=== PATIENT | female | born 1965 | race Caucasian/White ===

== ENCOUNTER → 2017-01-22 | Outpatient (CLI) | payer OTHER ==
[~2017-01-22] MED LIST: ANT25 PO; ATV5X PO; CALC-354 PO; CLON1TAB3 PO; CLX/20 PO; EPP3/2 IM; FLNIN/ NAE; LEVO50TA6 PO; MISCCAP80 PO; MISO1TAB10 PO; NATURAL SUPPLEMENT PO; ONDA-63 PO; PEDICHW44 PO; POLY1POW2 PO; SENN-61 PO; VNTHFA/IN INH; WARF-280 PO
--- NOTE | 2017-01-22 17:37 | DIAGNOSTIC IMAGING REPORT ---
MRI OF THE CERVICAL SPINE WITHOUT IV CONTRAST CLINICAL HISTORY: Neck pain radiating into the left shoulder. COMPARISON STUDY: No priors. TECHNIQUE: MRI of the cervical spine is performed utilizing various T1 and T2-weighted sequences in the axial and sagittal planes. IV contrast was not administered for this examination. The examination is modestly degraded by motion artifact. FINDINGS: Cervical spine: Vertebral body height and alignment are maintained throughout the cervical spine. There is straightening of the cervical lordosis. No destructive bony lesion is seen. The spinous processes appear intact. The atlantodental articulation appears maintained. Intervertebral discs: Mild degenerative disc desiccation is seen throughout the cervical spine. No significant loss of height is seen. Spinal cord: The cervical spinal cord is normal in morphology and signal intensity. C2-C3: Unremarkable. C3-C4: Mild facet arthropathy is of no consequence. The neural foramina appear patent. C4-C5: The central canal and neural foramina are patent. C5-C6: Facet arthropathy causes minimal right-sided neural foraminal stenosis. The central canal is clear. C6-C7: Unremarkable. C7-T1: Unremarkable. T1-T2: Unremarkable. Soft tissues: The prevertebral and paraspinous soft tissues are within normal limits. Brain parenchyma: Partially imaged brain parenchyma at the skull base is within normal limits. IMPRESSION: 1. There is no disc herniation, central canal stenosis, or significant neural foraminal narrowing seen throughout the cervical spine. 2. The cervical spinal cord is normal in morphology and signal intensity. Electronically signed by: Zeferino Foster M.D. 01/22/2017 5:35 PM Dictated Date/Time: 01/22/2017 5:31 PM
== END | disposition home or self-care (01) ==
LOC: C.MRIBC 16:31
PROVIDERS: ATTEND Psychiatry & Neurology Neurology
DX: M54.2 Cervicalgia (principal); M79.2 Neuralgia and neuritis, unspecified

== ENCOUNTER 2017-04-10 00:23 | Emergency (ER) | payer OTHER ==
[~2017-04-10] VITALS: Ht 170.2 cm; Wt 88.2 kg
[2017-04-10 00:25] VITALS: TEMP 36.5; Ht 170.2 cm; Wt 88.2 kg
[2017-04-10 00:40] VITALS: O2SAT 98
[2017-04-10 01:05] LABS: BASO % 0.4 %; BASO ABS # 0.03 K/uL (0-0.2); COMPLETE YES; EOS % 2.4 %; HEMATOCRIT 36.8 % (37-47); IG% 0.1 %; LYMPH % 43.9 %; LYMPH ABS # 3.06 K/uL (1.2-3.4); MEAN CELL VOLUME 92.9 fL (80-100); MEAN CORPUSCULAR HEMOGLOBIN 29.8 pg (25-34); MEAN CORPUSCULAR HGB CONC 32.1 g/dl (32-36); MEAN PLATELET VOLUME 10.4 fL (7.4-10.4); MONO % 9.6 %; NEUT % 43.6 %; PLATELET COUNT 207 K/uL (130-400); RED BLOOD COUNT 3.96 M/uL (4.2-5.4); WHITE BLOOD COUNT 6.97 K/uL (4.8-10.8)
[2017-04-10 01:18] LABS: ALT/SGPT 15 U/L (12-78); AST/SGOT 14 U/L (15-37); BLOOD UREA NITROGEN 13 mg/dl (7-18); BUN/CREATININE RATIO 14.8 (10-20); CALCIUM 8.6 mg/dl (8.5-10.1); CARBON DIOXIDE 29 mmol/L (21-32); CHLORIDE 105 mmol/L (98-107); GLUCOSE 101 mg/dl (70-99); POTASSIUM 4.1 mmol/L (3.5-5.1); SODIUM 140 mmol/L (136-145)
[2017-04-10 01:21] LABS: ALKALINE PHOSPHATASE 100 U/L (45-117); CKMB/CK RATIO 0.5 (0-3.0)
[2017-04-10 01:54] VITALS: BP 106/51; PULSE 50; O2SAT 99
[2017-04-10 02:14] LABS: INR 1.9 (0.9-1.1); PARTIAL THROMBOPLASTIN RATIO 1.3; PROTHROMBIN TIME (PATIENT) 20.7 SECONDS (9.0-12.0)
[2017-04-10] MEDS ORDERED: CHOL1CHW4 PO (02:21)
[2017-04-10] MEDS ORDERED: CYAN100020 INJ (02:21)
[2017-04-10] MEDS ORDERED: BACL10TA PO (02:21)
[2017-04-10] MEDS ORDERED: CYAN30003 SL (02:21)
--- NOTE | 2017-04-10 06:53 | DIAGNOSTIC IMAGING REPORT ---
ABDOMEN 2VIEW W/PA CHEST RTN CLINICAL HISTORY: Constipation. Chest pain. COMPARISON STUDY: 06/19/2016 FINDINGS: The erect chest reveals no free air. There is no focal pulmonary consolidation. There are surgical clips in the right upper quadrant consistent with a prior cholecystectomy. There are suture lines in left upper quadrant suggestive a prior gastric bypass. Surgical clips are also present within the pelvis possibly related to prior tubal ligation. There is mild fecal retention. There are no abnormally dilated loops of large or small bowel. There are no transition zone to indicate bowel obstruction. IMPRESSION: 1. No evidence of bowel obstruction. No evidence of free air 2. Postsurgical changes 3. Mild fecal retention. Electronically signed by: Bigg Haile M.D. 04/10/2017 6:51 AM Dictated Date/Time: 04/10/2017 6:50 AM
--- NOTE | 2017-04-10 07:20 | EMERGENCY ROOM VISIT NOTE ---
History Report prepared by Chago: Gloria Jama Under the Supervision of: Dr. Krystina Shabazz M.D. First contact with patient: 00:42 Chief Complaint: CHEST PAIN Stated Complaint: CHEST PAIN GOING INTO LEFT ARM History of Present Illness The patient is a 51 year old female who presents to the Emergency Room with complaints of episode of chest pain starting a few weeks ago. The patient states that she brought a friend to the ED for evaluation and thought she would "get checked out while (she's) here." She reports that while there she started to experience chest pain under her breast. She reports that the pain started to move into her armpit, down into her arm, and up into her shoulder blade. She states with past episodes she tried to ignore it. The patient notes the pain is better when she presses on her chest. She notes it is worse with exertion. She states that she still intermittently has pains from this. She also notes she has been constipated for two weeks. She reports that this pain feels differently than gas pains because it is higher. The patient complains on ringing in her ears. Source of History: patient Onset: a few weeks ago Position: chest Quality: other (radiating) Timing: other (episode) Modifying Factors (Worsening): exertion Modifying Factors (Relieving): other (pressing on her chest) Note: The patient complains of ringing in her ears. Review of Systems See HPI for pertinent positives & negatives. A total of 10 systems reviewed and were otherwise negative. Past Medical & Surgical Medical Problems: (1) ANXIETY STATE NOS (2) ASTHMA, UNSPECIFIED (3) Cholecystectomy (4) DIAB DELMY WO COMPL, TYPE II OR UNSPEC TYPE, NOT UNCNTRLD (5) ESOPHAGEAL REFLUX (6) GASTROPARESIS (7) Hx of blood clots (8) SYNCOPE AND COLLAPSE Family History Cancer Heart disease Hypertension No significant family history Social History Smoking Status: Never Smoker Alcohol Use: occasionally Drug Use: none Marital Status: Housing Status: lives with significant other Occupation Status: unemployed Current/Historical Medications Scheduled Baclofen (Lioresal), 10 MG PO HS Calcium Carbonate-Cholecalcife (Caltrate 600+D), 1 TAB PO BID Cholecalciferol (Vitamin D3), Unknown Dose PO DAILY Citalopram (Citalopram Hydrobromide), 20 MG PO DAILY Clonazepam (Klonopin), 1 MG PO HS Cyanocobalamin (Vitamin B12), Unknown Dose SL DAILY Cyanocobalamin (Vitamin B12), Unknown Dose INJ Q3MO Levothyroxine Sodium (Levothyroxine Sodium), 50 MCG PO DAILY Misoprostol (Cytotec), 100 MCG PO QID Pediatric Multiple Vitamins W/ (Flintstones Plus Iron), 1 TAB PO BID Polyethylene Glycol 3350 (Bulk (Polyethylene Glycol 3350), 17 GM PO DAILY Probiotic Product (Probiotic), 2 CAP PO DAILY Warfarin Sodium (Warfarin Sodium), 1.25 MG PO 2XWK Warfarin Sodium (Warfarin Sodium), 2.5 MG PO 5XWK [Natural Supplement], 1 DOSE PO DAILY Scheduled PRN Albuterol Hfa (Ventolin Hfa), 2 PUFFS INH Q4H PRN for Wheezing Epinephrine (Epipen), 0.3 MG IM UD PRN for ALLERGIC REACTION Fluticasone Propionate (Fluticasone Propionate), 2 SPRAYS ADRIANA DAILY PRN for Allergy Symptoms Lorazepam (Lorazepam), 0.5 MG PO Q8 PRN for Anxiety Meclizine HCl (Meclizine HCl), 25 MG PO TID PRN for Dizziness Ondansetron (Ondansetron HCl), 8 MG PO TID PRN for Nausea Senna (Senokot), 17.2-34.4 MG PO HS PRN for Constipation Allergies Coded Allergies: Tramadol (Verified Allergy, Intermediate, PRURITIS, 04/10/17) Aspirin (Verified Allergy, Unknown, 04/10/17) Cephalexin (Verified Allergy, Unknown, Unknown, 04/10/17) Clarithromycin (Verified Allergy, Unknown, 04/10/17) Doxepin (Verified Allergy, Unknown, Unknown, 04/10/17) Enoxaparin (Verified Allergy, Unknown, HIVES, 04/10/17) Gabapentin (Verified Allergy, Unknown, 04/10/17) Guaifenesin (Verified Allergy, Unknown, 04/10/17) Hydrocodone (Verified Allergy, Unknown, Unknown, 04/10/17) Hydromorphone (Verified Allergy, Unknown, 04/10/17) Ibuprofen (Verified Allergy, Unknown, Hives, 04/10/17) Kiwi (Verified Allergy, Unknown, 04/10/17) Molds and Smuts (Verified Allergy, Unknown, Unknown, 04/10/17) NUTS (Verified Allergy, Unknown, 04/10/17) Pantoprazole (Verified Allergy, Unknown, HIVES, 04/10/17) Penicillins (Verified Allergy, Unknown, 04/10/17) Prednisone (Verified Allergy, Unknown, Unknown, 04/10/17) Pseudoephedrine (Verified Allergy, Unknown, 04/10/17) Sulfa Drugs (Verified Allergy, Unknown, 04/10/17) Topiramate (Verified Allergy, Unknown, Psych Complications, 04/10/17) Trazodone (Verified Allergy, Unknown, Severe Migraine, 04/10/17) Triptans (Verified Allergy, Unknown, Unknown, 04/10/17) Morphine (Verified Adverse Reaction, Unknown, ANXIETY, SHAKING, 04/10/17) Uncoded Allergies: BEES (Allergy, Intermediate, SHORTNESS OF BREATH, 02/07/12) NONSTEROIDAL (Allergy, Unknown, 08/17/09) Physical Exam Vital Signs Date Time Temp Pulse Resp B/P (MAP) Pulse Ox O2 Delivery O2 Flow Rate FiO2 04/10/17 01:54 50 16 106/51 99 Room Air 04/10/17 00:40 98 Room Air 04/10/17 00:40 98 Room Air 04/10/17 00:38 58 04/10/17 00:25 36.5 55 20 111/61 97 Room Air Physical Exam Vital signs reviewed. General: Well-appearing, in no significant distress. HEENT: No scleral icterus, PERRLA, neck supple. Atraumatic. Cardiovascular: Regular rate and rhythm, no extra sounds. Pulmonary: Clear to auscultation bilaterally, normal work of breathing. Abdomen: Soft, nontender, nondistended, positive bowel sounds. Obese abdomen. Musculoskeletal: Atraumatic, no peripheral edema. Neurologic: Patient awake alert and oriented x 3, full strength in all 4 extremities. Cranial nerves 2 through 12 grossly intact. Skin: Warm, dry, no rash Medical Decision & Procedures ER Provider Diagnostic Interpretation: Radiology results as stated below per my review and radiologist interpretation: CHEST/ABDOMEN 2 VIEW: Findings: Interpreted by me. No focal lung consolidation, no failure. No free air. No evidence of obstruction. Fecal retention. Laboratory Results 04/10/17 00:36 Red Blood Count 3.96, Mean Corpuscular Volume 92.9, Mean Corpuscular Hemoglobin 29.8, Mean Corpuscular Hemoglobin Concent 32.1, Mean Platelet Volume 10.4, Neutrophils (%) (Auto) 43.6, Lymphocytes (%) (Auto) 43.9, Monocytes (%) (Auto) 9.6, Eosinophils (%) (Auto) 2.4, Basophils (%) (Auto) 0.4, Neutrophils # (Auto) 3.03, Lymphocytes # (Auto) 3.06, Monocytes # (Auto) 0.67, Eosinophils # (Auto) 0.17, Basophils # (Auto) 0.03 04/10/17 00:36 Test 04/10/17 00:36 04/10/17 01:09 White Blood Count 6.97 K/uL (4.8-10.8) Red Blood Count 3.96 M/uL (4.2-5.4) Hemoglobin 11.8 g/dL (12.0-16.0) Hematocrit 36.8 % (37-47) Mean Corpuscular Volume 92.9 fL (80-100) Mean Corpuscular Hemoglobin 29.8 pg (25-34) Mean Corpuscular Hemoglobin Concent 32.1 g/dl (32-36) Platelet Count 207 K/uL (130-400) Mean Platelet Volume 10.4 fL (7.4-10.4) Neutrophils (%) (Auto) 43.6 % Lymphocytes (%) (Auto) 43.9 % Monocytes (%) (Auto) 9.6 % Eosinophils (%) (Auto) 2.4 % Basophils (%) (Auto) 0.4 % Neutrophils # (Auto) 3.03 K/uL (1.4-6.5) Lymphocytes # (Auto) 3.06 K/uL (1.2-3.4) Monocytes # (Auto) 0.67 K/uL (0.11-0.59) Eosinophils # (Auto) 0.17 K/uL (0-0.5) Basophils # (Auto) 0.03 K/uL (0-0.2) RDW Standard Deviation 47.9 fL (36.4-46.3) RDW Coefficient of Variation 14.1 % (11.5-14.5) Immature Granulocyte % (Auto) 0.1 % Immature Granulocyte # (Auto) 0.01 K/uL (0.00-0.02) Prothrombin Time 20.7 SECONDS (9.0-12.0) Prothromb Time International Ratio 1.9 (0.9-1.1) Activated Partial Thromboplast Time 33.1 SECONDS (21.0-31.0) Partial Thromboplastin Ratio 1.3 Anion Gap 6.0 mmol/L (3-11) Est Creatinine Clear Calc Drug Dose 84.3 ml/min Estimated GFR () 85.8 Estimated GFR (Non- 74.0 BUN/Creatinine Ratio 14.8 (10-20) Calcium Level 8.6 mg/dl (8.5-10.1) Total Bilirubin 0.2 mg/dl (0.2-1) Direct Bilirubin < 0.1 mg/dl (0-0.2) Aspartate Amino Transf (AST/SGOT) 14 U/L (15-37) Alanine Aminotransferase (ALT/SGPT) 15 U/L (12-78) Alkaline Phosphatase 100 U/L (45-117) Total Creatine Kinase 142 U/L (26-192) Creatine Kinase MB 0.7 ng/ml (0.5-3.6) Creatine Kinase MB Ratio 0.5 (0-3.0) Total Protein 7.3 gm/dl (6.4-8.2) Albumin 3.5 gm/dl (3.4-5.0) Bedside Troponin I < 0.030 ng/ml (0-0.045) Laboratory results per my review. ECG Indication: chest pain Rate (beats per minute): 48 Rhythm: sinus bradycardia Findings: no acute ischemic change, no ectopy ED Course 0052: Past medical records reviewed. The patient was evaluated in room A11B. A complete history and physical examination was performed. 0221: Upon reevaluation, the patient appeared to have improvement of her symptoms. I discussed findings with the patient. She verbalized agreement of the treatment plan. The patient was discharged home. Medical Decision Differential diagnosis: Etiologies such as cardiac ischemia, aortic dissection, pulmonary embolism, pneumonia, pneumothorax, musculoskeletal, infections, pericarditis, myocarditis , esophageal rupture, gastrointestinal, constipation, as well as others were entertained. This pt was evaluated and appeared to be in no distress. EKG was performed and is negative for acute abnormality. Pt not given ASA as she confirms allergy. Lab work reveals no elevation of cardiac enzymes. Pt has h/o constipation and states no BM in 2 weeks. Abd XR reveals constipation. INR is 1.9, slightly subtherapeutic, but pt takes varying doses. HR is normal, O2 sat on RA is normal. I do not suspect acute cardiac or VTE source of pain. I suspect this is GI related. Pt was advised to use miralax until she has a BM. She will f/u with her doctor this week and return to the ED for worsening of symptoms or any medical concerns. Medication Reconcilliation Current Medication List: was personally reviewed by me Blood Pressure Screening Patient's blood pressure: Low blood pressure Blood pressure disposition: Did not require urgent referral Impression Primary Impression: Chest pain radiating to arm Additional Impression: Constipation Scribe Attestation The scribe's documentation has been prepared under my direction and personally reviewed by me in its entirety. I confirm that the note above accurately reflects all work, treatment, procedures, and medical decision making performed by me. Departure Information Dispostion Home / Self-Care Referrals Shawna Malhotra M.D. (PCP) Forms Call Back Authorization, HOME CARE DOCUMENTATION FORM, IMPORTANT VISIT INFORMATION Patient Instructions My [facility] Additional Instructions Diagnosis: Chest pain, constipation Miralax 1 cap every 8 hours until you have a BM Follow up with your doctor this week for reevaluation. Return to the ED for worsening of symptoms or any medical concerns. Problem Qualifiers
== END 2017-04-10 02:21 | disposition home or self-care (01) ==
LOC: C.EDB 00:24 → C.EDA 02:21
DX: R07.9 Chest pain, unspecified (principal); K59.00 Constipation, unspecified; F41.9 Anxiety disorder, unspecified; J45.909 Unspecified asthma, uncomplicated; E11.9 Type 2 diabetes mellitus without complications; K21.9 Gastro-esophageal reflux disease without esophagitis; K31.84 Gastroparesis; Z86.718 Personal history of other venous thrombosis and embolism; Z80.9 Family history of malignant neoplasm, unspecified; Z82.49 Family history of ischemic heart disease and other diseases of the circulatory system; Z79.01 Long term (current) use of anticoagulants; Z79.899 Other long term (current) drug therapy

== ENCOUNTER 2017-08-06 22:04 | Emergency (ER) | payer OTHER ==
[~2017-08-06] VITALS: Ht 162.6 cm; Wt 90.4 kg
[~2017-08-06 22:04] MED LIST changes: +BACL10TA PO; +CHOL1CHW4 PO; +CYAN100020 INJ; +CYAN30003 PO
[2017-08-06 22:26] VITALS: TEMP 36.5; Ht 162.6 cm; Wt 90.4 kg
[2017-08-06 22:56] LABS: BASO % 0.7 %; BASO ABS # 0.05 K/uL (0-0.2); EOS % 2.7 %; HEMATOCRIT 38.9 % (37-47); IG# 0.02 K/uL (0.00-0.02); LYMPH % 40.9 %; LYMPH ABS # 3.02 K/uL (1.2-3.4); MEAN CELL VOLUME 91.5 fL (80-100); MEAN CORPUSCULAR HEMOGLOBIN 30.6 pg (25-34); MEAN CORPUSCULAR HGB CONC 33.4 g/dl (32-36); MEAN PLATELET VOLUME 10.7 fL (7.4-10.4); MONO % 11.1 %; MONO ABS # 0.82 K/uL (0.11-0.59); NEUT % 44.3 %; NEUT ABS # 3.27 K/uL (1.4-6.5); PLATELET COUNT 209 K/uL (130-400); RED CELL DISTRIBUTION WIDTH CV 14.4 % (11.5-14.5); RED CELL DISTRIBUTION WIDTH SD 48.5 fL (36.4-46.3); WHITE BLOOD COUNT 7.38 K/uL (4.8-10.8)
--- NOTE | 2017-08-06 23:08 | EMERGENCY ROOM VISIT NOTE ---
ED Visit Note First contact with patient: 22:19 I have seen and examined this patient with Michell Olea and generally agree with the treatment plan as discussed. Problem List Medical Problems: (1) ANXIETY STATE NOS Status: Chronic (2) ASTHMA, UNSPECIFIED Status: Chronic (3) Cholecystectomy Status: Chronic (4) DIAB DELMY WO COMPL, TYPE II OR UNSPEC TYPE, NOT UNCNTRLD Status: Chronic (5) ESOPHAGEAL REFLUX Status: Chronic (6) GASTROPARESIS Status: Chronic (7) SYNCOPE AND COLLAPSE Status: Chronic Current/Historical Medications Scheduled Baclofen (Lioresal), 10 MG PO HS Calcium Carbonate-Cholecalcife (Caltrate 600+D), 1 TAB PO BID Cholecalciferol (Vitamin D3), Unknown Dose PO DAILY Citalopram (Citalopram Hydrobromide), 20 MG PO DAILY Clonazepam (Klonopin), 1 MG PO HS Cyanocobalamin (Vitamin B12), Unknown Dose SL DAILY Cyanocobalamin (Vitamin B12), Unknown Dose INJ Q3MO Levothyroxine Sodium (Levothyroxine Sodium), 50 MCG PO DAILY Misoprostol (Cytotec), 100 MCG PO QID Pediatric Multiple Vitamins W/ (Flintstones Plus Iron), 1 TAB PO BID Polyethylene Glycol 3350 (Bulk (Polyethylene Glycol 3350), 17 GM PO DAILY Probiotic Product (Probiotic), 2 CAP PO DAILY Warfarin Sodium (Warfarin Sodium), 1.25 MG PO 2XWK Warfarin Sodium (Warfarin Sodium), 2.5 MG PO 5XWK [Natural Supplement], 1 DOSE PO DAILY Scheduled PRN Albuterol Hfa (Ventolin Hfa), 2 PUFFS INH Q4H PRN for Wheezing Epinephrine (Epipen), 0.3 MG IM UD PRN for ALLERGIC REACTION Fluticasone Propionate (Fluticasone Propionate), 2 SPRAYS ADRIANA DAILY PRN for Allergy Symptoms Lorazepam (Lorazepam), 0.5 MG PO Q8 PRN for Anxiety Meclizine HCl (Meclizine HCl), 25 MG PO TID PRN for Dizziness Ondansetron (Ondansetron HCl), 8 MG PO TID PRN for Nausea Senna (Senokot), 17.2-34.4 MG PO HS PRN for Constipation Allergies Coded Allergies: Tramadol (Verified Allergy, Intermediate, PRURITIS, 04/10/17) Aspirin (Verified Allergy, Unknown, 04/10/17) Cephalexin (Verified Allergy, Unknown, Unknown, 04/10/17) Clarithromycin (Verified Allergy, Unknown, 04/10/17) Doxepin (Verified Allergy, Unknown, Unknown, 04/10/17) Enoxaparin (Verified Allergy, Unknown, HIVES, 04/10/17) Gabapentin (Verified Allergy, Unknown, 04/10/17) Guaifenesin (Verified Allergy, Unknown, 04/10/17) Hydrocodone (Verified Allergy, Unknown, Unknown, 04/10/17) Hydromorphone (Verified Allergy, Unknown, 04/10/17) Ibuprofen (Verified Allergy, Unknown, Hives, 04/10/17) Kiwi (Verified Allergy, Unknown, 04/10/17) Molds and Smuts (Verified Allergy, Unknown, Unknown, 04/10/17) NUTS (Verified Allergy, Unknown, 04/10/17) Pantoprazole (Verified Allergy, Unknown, HIVES, 04/10/17) Penicillins (Verified Allergy, Unknown, 04/10/17) Prednisone (Verified Allergy, Unknown, Unknown, 04/10/17) Pseudoephedrine (Verified Allergy, Unknown, 04/10/17) Sulfa Drugs (Verified Allergy, Unknown, 04/10/17) Topiramate (Verified Allergy, Unknown, Psych Complications, 04/10/17) Trazodone (Verified Allergy, Unknown, Severe Migraine, 04/10/17) Triptans (Verified Allergy, Unknown, Unknown, 04/10/17) Morphine (Verified Adverse Reaction, Unknown, ANXIETY, SHAKING, 04/10/17) Uncoded Allergies: BEES (Allergy, Intermediate, SHORTNESS OF BREATH, 02/07/12) NONSTEROIDAL (Allergy, Unknown, 08/17/09) Vital Signs Date Time Temp Pulse Resp B/P (MAP) Pulse Ox O2 Delivery O2 Flow Rate FiO2 08/06/17 22:35 Room Air 08/06/17 22:26 36.5 58 14 119/53 96 Room Air 08/06/17 22:20 58 Laboratory Results 08/06/17 22:37 Red Blood Count 4.25, Mean Corpuscular Volume 91.5, Mean Corpuscular Hemoglobin 30.6, Mean Corpuscular Hemoglobin Concent 33.4, Mean Platelet Volume 10.7, Neutrophils (%) (Auto) 44.3, Lymphocytes (%) (Auto) 40.9, Monocytes (%) (Auto) 11.1, Eosinophils (%) (Auto) 2.7, Basophils (%) (Auto) 0.7, Neutrophils # (Auto ) 3.27, Lymphocytes # (Auto) 3.02, Monocytes # (Auto) 0.82, Eosinophils # (Auto ) 0.20, Basophils # (Auto) 0.05 Test 08/06/17 22:24 08/06/17 22:37 White Blood Count 7.38 K/uL (4.8-10.8) Red Blood Count 4.25 M/uL (4.2-5.4) Hemoglobin 13.0 g/dL (12.0-16.0) Hematocrit 38.9 % (37-47) Mean Corpuscular Volume 91.5 fL (80-100) Mean Corpuscular Hemoglobin 30.6 pg (25-34) Mean Corpuscular Hemoglobin Concent 33.4 g/dl (32-36) Platelet Count 209 K/uL (130-400) Mean Platelet Volume 10.7 fL (7.4-10.4) Neutrophils (%) (Auto) 44.3 % Lymphocytes (%) (Auto) 40.9 % Monocytes (%) (Auto) 11.1 % Eosinophils (%) (Auto) 2.7 % Basophils (%) (Auto) 0.7 % Neutrophils # (Auto) 3.27 K/uL (1.4-6.5) Lymphocytes # (Auto) 3.02 K/uL (1.2-3.4) Monocytes # (Auto) 0.82 K/uL (0.11-0.59) Eosinophils # (Auto) 0.20 K/uL (0-0.5) Basophils # (Auto) 0.05 K/uL (0-0.2) RDW Standard Deviation 48.5 fL (36.4-46.3) RDW Coefficient of Variation 14.4 % (11.5-14.5) Immature Granulocyte % (Auto) 0.3 % Immature Granulocyte # (Auto) 0.02 K/uL (0.00-0.02) Departure Information Referrals Shawna Malhotra M.D. (PCP) Patient Instructions My [facility]
[2017-08-06] MEDS ORDERED: [UNRECOGNIZED DRUG - OTHER] (23:19)
[2017-08-06] MEDS ORDERED: RANI150C4 PO (23:19)
[2017-08-06] MEDS ORDERED: SODICRE2 EXT (23:21)
[2017-08-06 23:22] LABS: ALBUMIN 3.7 gm/dl (3.4-5.0); ALT/SGPT 17 U/L (12-78); AST/SGOT 19 U/L (15-37); BLOOD UREA NITROGEN 9 mg/dl (7-18); CARBON DIOXIDE 32 mmol/L (21-32); CREATININE 0.83 mg/dl (0.60-1.20); GLUCOSE 77 mg/dl (70-99); POTASSIUM 4.1 mmol/L (3.5-5.1); SODIUM 139 mmol/L (136-145); TOTAL PROTEIN 7.4 gm/dl (6.4-8.2)
[2017-08-06 23:26] LABS: ALKALINE PHOSPHATASE 90 U/L (45-117)
[2017-08-07] MEDS ORDERED: NITROFURANTOIN MONOHYDRATE 100 MG CAP PO ONE (01:00)
[2017-08-07] MEDS ORDERED: NITR-5 PO (01:50)
[2017-08-07 02:05] VITALS: BP 104/67; PULSE 57; O2SAT 98
--- NOTE | 2017-08-07 05:44 | EMERGENCY ROOM VISIT NOTE ---
History First contact with patient: 22:19 Chief Complaint: HYPOGLYCEMIA Stated Complaint: L ARM PAIN Nursing Triage Summary: pt brought ALS from [facility], pt was playing bingo and became shakey, nauseated and may have had a small seizure, also c/o L arm pain. BSG for EMS was 68 and pt was given PO glucose, BSG at arrival is 78. Pt denies chest pain, SOB , nausea at time of arrival. History of Present Illness The patient is a 51 year old female who presents to the Emergency Room with complaints of feeling nauseous, lightheadedness and shakiness with neck pain that radiates down her arm that has been intermittent for quite some time. Patient checked her blood sugar and it was 100. EMS checked and it was 68. She is given glucose And Vomited up. Glucose Here Was 78. Patient denies chest pain, dyspnea, fever, chills, cough, congestion, recent illness, back pain , urinary symptoms. Patient has a history of UTIs. Nothing recent. No recent antibiotics. Review of Systems See HPI for pertinent positives & negatives. A total of 10 systems reviewed and were otherwise negative. Past Medical/Surgical History Medical Problems: (1) ANXIETY STATE NOS (2) ASTHMA, UNSPECIFIED (3) Cholecystectomy (4) DIAB DELMY WO COMPL, TYPE II OR UNSPEC TYPE, NOT UNCNTRLD (5) ESOPHAGEAL REFLUX (6) GASTROPARESIS (7) Hx of blood clots (8) SYNCOPE AND COLLAPSE Family History Cancer Heart disease Hypertension No significant family history Social History Smoking Status: Never Smoker Alcohol Use: occasionally Drug Use: none Marital Status: Housing Status: lives with significant other Occupation Status: unemployed Current/Historical Medications Scheduled Baclofen (Lioresal), 10 MG PO HS Calcium Carbonate-Cholecalcife (Caltrate 600+D), 1 TAB PO BID Cholecalciferol (Vitamin D3), 1,000 UNITS PO DAILY Citalopram (Citalopram Hydrobromide), 20 MG PO DAILY Clonazepam (Klonopin), 1 MG PO HS Cyanocobalamin (Vitamin B12), 2,500 MCG PO DAILY Cyanocobalamin (Vitamin B12), Unknown Dose INJ Q3MO Levothyroxine Sodium (Levothyroxine Sodium), 50 MCG PO DAILY Nitrofurantoin Monohyd Macrocr (Macrobid), 100 MG PO BID Pediatric Multiple Vitamins W/ (Flintstones Plus Iron), 1 TAB PO BID Probiotic Product (Probiotic), 2 CAP PO DAILY Ranitidine Hcl (Ranitidine Hcl), 75 MG PO BID Sodium Fluoride (Dental) (Denta 5000 Plus), 1 APPLN EXT DIRECTED Warfarin Sodium (Warfarin Sodium), 1.25 MG PO 2XWK Warfarin Sodium (Warfarin Sodium), 2.5 MG PO 5XWK [Natural Supplement], 1 DOSE PO DAILY Scheduled PRN Albuterol Hfa (Ventolin Hfa), 2 PUFFS INH Q4H PRN for Wheezing Epinephrine (Epipen), 0.3 MG IM UD PRN for ALLERGIC REACTION Fluticasone Propionate (Fluticasone Propionate), 2 SPRAYS ADRIANA DAILY PRN for Allergy Symptoms Lorazepam (Lorazepam), 0.5 MG PO Q8 PRN for Anxiety Meclizine HCl (Meclizine HCl), 25 MG PO TID PRN for Dizziness Ondansetron (Ondansetron HCl), 8 MG PO TID PRN for Nausea Senna (Senokot), 17.2-34.4 MG PO HS PRN for Constipation Physical Exam Vital Signs Date Time Temp Pulse Resp B/P (MAP) Pulse Ox O2 Delivery O2 Flow Rate FiO2 08/07/17 02:05 57 18 104/67 98 08/07/17 01:44 57 18 104/67 96 Room Air 08/07/17 01:00 60 17 100/56 97 Room Air 08/07/17 00:05 61 18 97/63 97 Room Air 08/06/17 22:35 Room Air 08/06/17 22:26 36.5 58 14 119/53 96 Room Air 08/06/17 22:20 58 Physical Exam VITALS: Vitals are noted on the nurse's note and reviewed by myself. Vital signs stable. GENERAL: Pleasant female, in no acute distress, nondiaphoretic, well-developed well-nourished. SKIN: The skin was without rashes, erythema, edema, or bruising. There is no tenting of the skin. Capillary reflex less than 2 seconds. HEAD: Normocephalic atraumatic. EARS: External auditory canals clear, tympanic membranes pearly alvarez without erythema or effusion bilaterally. EYES: Pupils equal round and reactive to light and accommodation. Conjunctivae without injection, sclerae without icterus. Extraocular movements intact. NOSE: Patent, turbinates without inflammation or discharge. MOUTH: Mucous membranes moist. Pharynx without erythema or exudate. Uvula midline. Airway patent. Tongue does not deviate. NECK: Supple without nuchal rigidity. No lymphadenopathy. No thyromegaly. Cervical spine is nontender. No JVD. HEART: Regular rate and rhythm LUNGS: Clear to auscultation bilaterally without wheezes, rales or rhonchi. No dullness to percussion. No retractions or accessory muscle use. ABDOMEN: Positive bowel sounds x 4. Normal tympanic percussion. Soft, nontender, without masses or organomegaly. Dhillon sign negative. No guarding or rebound tenderness. No CVA tenderness MUSCULOSKELETAL: No muscle atrophy, erythema, or edema noted. NEURO: Patient was alert and oriented to person place and time. Normal sensation to light and sharp touch. No focal neurological deficits. Medical Decision & Procedures Laboratory Results 08/06/17 22:37 Red Blood Count 4.25, Mean Corpuscular Volume 91.5, Mean Corpuscular Hemoglobin 30.6, Mean Corpuscular Hemoglobin Concent 33.4, Mean Platelet Volume 10.7, Neutrophils (%) (Auto) 44.3, Lymphocytes (%) (Auto) 40.9, Monocytes (%) (Auto) 11.1, Eosinophils (%) (Auto) 2.7, Basophils (%) (Auto) 0.7, Neutrophils # (Auto ) 3.27, Lymphocytes # (Auto) 3.02, Monocytes # (Auto) 0.82, Eosinophils # (Auto ) 0.20, Basophils # (Auto) 0.05 08/06/17 22:37 Test 08/06/17 22:21 08/06/17 22:37 08/06/17 23:52 Bedside Glucose 78 mg/dl (70-90) White Blood Count 7.38 K/uL (4.8-10.8) Red Blood Count 4.25 M/uL (4.2-5.4) Hemoglobin 13.0 g/dL (12.0-16.0) Hematocrit 38.9 % (37-47) Mean Corpuscular Volume 91.5 fL (80-100) Mean Corpuscular Hemoglobin 30.6 pg (25-34) Mean Corpuscular Hemoglobin Concent 33.4 g/dl (32-36) Platelet Count 209 K/uL (130-400) Mean Platelet Volume 10.7 fL (7.4-10.4) Neutrophils (%) (Auto) 44.3 % Lymphocytes (%) (Auto) 40.9 % Monocytes (%) (Auto) 11.1 % Eosinophils (%) (Auto) 2.7 % Basophils (%) (Auto) 0.7 % Neutrophils # (Auto) 3.27 K/uL (1.4-6.5) Lymphocytes # (Auto) 3.02 K/uL (1.2-3.4) Monocytes # (Auto) 0.82 K/uL (0.11-0.59) Eosinophils # (Auto) 0.20 K/uL (0-0.5) Basophils # (Auto) 0.05 K/uL (0-0.2) RDW Standard Deviation 48.5 fL (36.4-46.3) RDW Coefficient of Variation 14.4 % (11.5-14.5) Immature Granulocyte % (Auto) 0.3 % Immature Granulocyte # (Auto) 0.02 K/uL (0.00-0.02) Anion Gap 3.0 mmol/L (3-11) Est Creatinine Clear Calc Drug Dose 87.3 ml/min Estimated GFR () 94.6 Estimated GFR (Non- 81.6 BUN/Creatinine Ratio 11.1 (10-20) Calcium Level 9.0 mg/dl (8.5-10.1) Magnesium Level 2.0 mg/dl (1.8-2.4) Total Bilirubin 0.2 mg/dl (0.2-1) Direct Bilirubin < 0.1 mg/dl (0-0.2) Aspartate Amino Transf (AST/SGOT) 19 U/L (15-37) Alanine Aminotransferase (ALT/SGPT) 17 U/L (12-78) Alkaline Phosphatase 90 U/L (45-117) Troponin I < 0.015 ng/ml (0-0.045) Total Protein 7.4 gm/dl (6.4-8.2) Albumin 3.7 gm/dl (3.4-5.0) Urine Color YELLOW Urine Appearance CLEAR (CLEAR) Urine pH 6.5 (4.5-7.5) Urine Specific [place] 1.006 (1.000-1.030) Urine Protein NEG (NEG) Urine Glucose (UA) NEG (NEG) Urine Ketones NEG (NEG) Urine Occult Blood TRACE (NEG) Urine Nitrite NEG (NEG) Urine Bilirubin NEG (NEG) Urine Urobilinogen NEG (NEG) Urine Leukocyte Esterase LARGE (NEG) Urine WBC (Auto) /hpf (0-5) Urine RBC (Auto) /hpf (0-4) Urine Hyaline Casts (Auto) /lpf (0-5) Urine Epithelial Cells (Auto) /lpf (0-5) Urine Bacteria (Auto) (NEG) Urine RBC 0-4 /hpf (0-4) Urine WBC 10-30 /hpf (0-5) Urine Epithelial Cells 20-30 /lpf (0-5) Urine Bacteria 1+ (NEG) Medications Administered Medications (Trade) Dose Ordered Sig/Corky Route Start Time Stop Time Status Last Admin Dose Admin Nitrofurantoin Macrocrystals (Macrobid Cap) 100 mg ONE ONCE PO 08/07/17 01:00 08/07/17 01:01 DC 08/07/17 01:00 100 MG ED Course Prior records/ancillary studies reviewed and summarized above. Nursing notes reviewed. Additional history obtained from family. The patient's history was concerning for shakiness, nauseous, low blood sugar and cervical radiculopathy. Differential diagnosis: Etiologies such as metabolic, infection, hypo/hyperglycemia, electrolyte abnormalities, cardiac sources, intracerebral event, toxicologic, neurologic, as well as others were entertained. Physical examination: As above. ER treatment provided: IV Lock Macrobid On reassessment the patient felt better. Diagnostics interpretation by me: ECG: Normal sinus, normal intervals, Q waves in the lateral leads, T-wave inversion in lead 3, no other acute ST-T wave changes, rate of 57. Impression sinus bradycardia interpreted by myself The labs revealed negative troponin 2 That was 2 hours apart. The second troponin was a see and did not cross over. Urine concerning for infections and for culture. Stable blood sugar. Imaging studies: Cervical CT negative for fracture per radiology Exam and history seem consistent with cervical radiculopathy with a hypoglycemic event that has now resolved and UTI. Patient was well-appearing. She no deficits on exam. She started antibiotics. Urine culture was sent. She is advised to rest, stay well-hydrated, follow-up with family care and take medications as directed. She is advised return to the ER mainly for high fevers , lethargy, weakness, fevers, worsening signs or symptoms or as needed. Patient did not have acute abdomen on exam. She was well-appearing. She was neurovascularly and neurologically intact. Patient and been were upset that they were in the ER for 4 hours. It was extremely busy night tonight. They state that the nursing staff ignored their request for help with going to the bathroom. I spoke to the nurse and states that she was in the room multiple times and helping with the patient. The charge nurse, Anahi was made aware. She did speak to them. Patient was informed that was extremely busy night. It took quite some time to get her testing back. They did seem to understand this. By the evaluation outlined above emergent etiologies such as electrolyte abnormalities, cardiac sources, intracerebral event, toxologic, neurologic, metabolic, as well as others were deemed relatively unlikely. The pt informed about the findings as listed above. All questions were answered and pleased with the treatment. Return instructions were outlined and the patient was discharged in stable condition. Outpatient prescription management: Macrobid Referral: The patient was referred back to primary care physician for follow-up in 2 to 3 days for a recheck of the current condition. case reviewed with my Attending Medical Decision As above Medication Reconcilliation Current Medication List: was personally reviewed by me Blood Pressure Screening Patient's blood pressure: Normal blood pressure Impression Primary Impression: Cervical radiculopathy Additional Impression: Urinary tract infection Departure Information Dispostion Home / Self-Care Condition GOOD Prescriptions Nitrofurantoin Monohyd Macrocr (Macrobid) 100 Mg Cap 100 MG PO BID for 7 Days, #14 CAP Prov: Lucia Olea ., JAIME 08/07/17 Forms WORK / SCHOOL INSTRUCTIONS, HOME CARE DOCUMENTATION FORM, IMPORTANT VISIT INFORMATION Patient Instructions UTI, My [facility], ED Cervical Radiculopathy Additional Instructions DO NOT drive, drink alcohol, operate machinery, or perform dangerous activities today. You were given medications in the ER that can affect your ability to safely function or operate a vehicle. Monitor your blood sugar. Macrobid(macrodantin) 100mg: Take one pill twice daily for 7 days for your urine infection. All antibiotics can cause diarrhea. If this occurs and you feel worse or it does not resolve in 1-2 days follow up with your doctor or return to the Emergency Department as this could be signs of serious underlying problems. Any medication can cause an allergic reaction, stop the pills immediately and return to the ER for rash, hives, breathing difficulties, or swelling. Acetaminophen(Tylenol) may be used for fever or pain. Use 1000mg every six hours as needed. Avoid using more than 3000mg in a 24 hour period. Rest and drink plenty of fluids as tolerated. Slow sips of water or sports drinks are recommended instead of large amounts all at once. Continue current medications. Once your stomach is settled start with a clear liquid diet (jello, soup broth, etc.) and then advance as tolerated. You should avoid full, heavy meals for about 24 hrs from the time your symptoms resolved. Return to the ER immediately for worsening or persistent abdominal/back pain, vomiting, fevers, worsening of your condition, or as needed. Follow up with your primary physician within 2-3 days for a recheck of the current condition. Problem Qualifiers
--- NOTE | 2017-08-07 06:32 | DIAGNOSTIC IMAGING REPORT ---
CHEST ONE VIEW PORTABLE CLINICAL HISTORY: Chest pain. COMPARISON STUDY: Chest radiograph April 10, 2017. FINDINGS: Lung volumes are normal. Lungs are clear. There is no pneumothorax or pleural effusion. Cardiac size is normal. Mediastinal contours are normal. There is no evidence for pulmonary edema. IMPRESSION: No acute cardiopulmonary findings. Electronically signed by: Phill Smart M.D. 08/07/2017 6:30 AM Dictated Date/Time: 08/07/2017 6:30 AM
--- NOTE | 2017-08-07 07:23 | DIAGNOSTIC IMAGING REPORT ---
CERVICAL SPINE W/O CT DOSE: 202.51 mGy.cm HISTORY: Pain. Neuropathy. neck pain down left arm TECHNIQUE: Multiaxial CT images of the cervical spine were performed and reformatted in the sagittal and coronal plane without the use of contrast. A dose lowering technique was utilized adhering to the principles of ALARA. COMPARISON: None. FINDINGS: No fractures. No subluxation. Prevertebral soft tissues and the C1-C2 interval are intact. No pneumothorax. IMPRESSION: No fractures within the cervical spine. Negative study The above report was generated using voice recognition software. It may contain grammatical, syntax or spelling errors. Electronically signed by: Antonio Thomas M.D. 08/07/2017 7:21 AM Dictated Date/Time: 08/07/2017 7:17 AM
== END 2017-08-07 02:05 | disposition home or self-care (01) ==
LOC: EDBD 22:04 → C.EDB 22:05
DX: M54.12 Radiculopathy, cervical region (principal); N39.0 Urinary tract infection, site not specified; F41.9 Anxiety disorder, unspecified; J45.909 Unspecified asthma, uncomplicated; E11.9 Type 2 diabetes mellitus without complications; K21.9 Gastro-esophageal reflux disease without esophagitis; Z82.49 Family history of ischemic heart disease and other diseases of the circulatory system; Z79.01 Long term (current) use of anticoagulants; Z51.81 Encounter for therapeutic drug level monitoring

== ENCOUNTER 2024-02-02 03:45 | Inpatient (IN) ==
--- NOTE | 2024-02-02 04:00 | Emergency Department Note ---
History of Present Illness General Chief complaint: Illness Stated complaint: GENERALIZED ILLNESS, NOT FEELING WELL, CONFUSION Time Seen by Provider: 02/02/24 03:48 History of Present Illness This 58-year-old female presents ER complaining of severe headache and feeling confused today. Patient went to the PCP and was prescribed prednisone and amoxicillin for URI. Patient comes in now via EMS for increased confusion per family and EMS. Patient self only complains of a headache. Patient specific denies chest pain, dyspnea, cough, congestion, abdominal pain, back pain, numbness, tingling, localized weakness. arrives and states she normally gets confused like this when she is a side effect of medication. No known fever. She went to the doctor for URI symptoms and lightheadedness. Home Medications Medication Instructions Recorded Confirmed Type citalopram 10 mg tablet 10 mg PO BID 05/26/19 10/14/23 History diphenhydramine 25 2 tab PO HS PRN Sleep 05/26/19 10/14/23 History mg-acetaminophen 500 mg tablet (Tylenol PM Extra Strength) levothyroxine 50 mcg tablet 50 mcg PO DAILY 05/26/19 10/14/23 History (Synthroid) loratadine 10 mg disintegrating 10 mg PO DAILY 05/26/19 10/14/23 History tablet (Claritin RediTabs) cholecalciferol (vitamin D3) 125 10,000 unit PO DAILY 12/19/21 10/14/23 History mcg (5,000 unit) capsule multivitamin-ferrous 2 tab PO DAILY 12/19/21 10/14/23 History fumarate-folic acid 18 mg-400 mcg tablet (Centrum Women) Saccharomyces boulardii 10 billion 10,000 mmu cells PO DAILY 08/19/22 10/14/23 History cell capsule ascorbic acid (vitamin C) 1,000 mg 1 g PO DAILY 08/19/22 10/14/23 History tablet (Vitamin C) biotin 10 mg tablet 10 mg PO DAILY 08/19/22 10/14/23 History calcium carbonate (Tums) 400 mg PO DIRECTED PRN 08/19/22 10/14/23 History HEARTBURN/INDIGESTION cyanocobalamin (vitamin B-12) 1,000 mcg PO DAILY 08/19/22 10/14/23 History 1,000 mcg tablet (Vitamin B-12) vitamin A 3,000 mcg (10,000 unit) 3,000 mcg PO DAILY 08/19/22 10/14/23 History capsule warfarin 1 mg tablet 1 - 2 mg PO QPM 08/19/22 10/14/23 History epinephrine 0.3 mg/0.3 mL 0.3 mg IM UD PRN Allergic Reaction 02/10/23 10/14/23 History injection, auto-injector linaclotide 145 mcg capsule 145 mcg PO DAILYBB 02/10/23 10/14/23 History (Linzess) alendronate 70 mg tablet 70 mg PO Q7D 10/14/23 10/14/23 History cyclobenzaprine 10 mg tablet 10 mg PO BID PRN muscle spasm #180 10/14/23 10/14/23 Rx tabs Allergies Allergy/AdvReac Type Severity Reaction Status Date / Time bee venom protein (honey bee) Allergy Severe SHORTNESS Verified 10/14/23 13:18 OF BREATH banana Allergy Intermediate Lips Verified 10/14/23 13:18 swelled and "got bumps in mouth" enoxaparin Allergy Intermediate HIVES Verified 10/14/23 13:18 ibuprofen Allergy Intermediate Hives Verified 10/14/23 13:18 pantoprazole Allergy Intermediate HIVES Verified 10/14/23 13:18 pregabalin [From Lyrica] Allergy Intermediate SEE COMMENT Verified 10/14/23 13:18 tramadol Allergy Intermediate PRURITIS Verified 10/14/23 13:18 aspirin Allergy Unknown Unknown Verified 10/14/23 13:18 baclofen Allergy Unknown Unknown Verified 10/14/23 13:18 cephalexin Allergy Unknown Unknown Verified 10/14/23 13:18 clarithromycin Allergy Unknown Unknown Verified 10/14/23 13:18 doxepin Allergy Unknown Unknown Verified 10/14/23 13:18 guaifenesin Allergy Unknown Unknown Verified 10/14/23 13:18 hydrocodone Allergy Unknown Unknown Verified 10/14/23 13:18 hydromorphone Allergy Unknown Unknown Verified 10/14/23 13:18 kiwi Allergy Unknown Unknown Verified 10/14/23 13:18 lamotrigine [From Lamictal] Allergy Unknown Unknown Verified 10/14/23 13:18 mold Allergy Unknown Unknown Verified 10/14/23 13:18 nitrofurantoin Allergy Unknown Unknown Verified 10/14/23 13:18 NSAIDS (Non-Steroidal Allergy Unknown Unknown Verified 10/14/23 13:18 Anti-Inflamma nut - unspecified Allergy Unknown WALNUTS-UNK Verified 10/14/23 13:18 NOWN prednisone Allergy Unknown Unknown Verified 10/14/23 13:18 pseudoephedrine Allergy Unknown Unknown Verified 10/14/23 13:18 Sulfa (Sulfonamide Allergy Unknown Unknown Verified 10/14/23 13:18 Antibiotics) [id number] Antimigraine Allergy Unknown Unknown Verified 10/14/23 13:18 Agents verapamil Allergy Unknown Unknown Verified 10/14/23 13:18 walnut Allergy Unknown Unknown Verified 10/14/23 13:18 gabapentin AdvReac Severe LOST EYE Verified 10/14/23 13:18 SIGHT morphine AdvReac Severe SEVERE Verified 10/14/23 13:18 ANXIETY, SHAKING, BECAME RED ALL OVER trazodone AdvReac Severe Severe Verified 10/14/23 13:18 Migraine topiramate AdvReac Intermediate Psych Verified 10/14/23 13:18 Complications Past Med/Surg History Problem List (Updated 02/02/24 @ 04:31 by Lucia Olea PA-C) Headache (Acute) Altered mental status (Acute) Carpal tunnel syndrome on both sides Chronic migraine with aura Compression fracture of T3 vertebra Lumbar radiculopathy Numbness and tingling in both hands Numbness and tingling of both feet Chronic cerebral ischemia Depression with anxiety Cognitive impairment Unspecified asthma (Acute 10/06/12) History of esophageal reflux (Acute 10/06/12) Gastroparesis (Acute 10/06/12) Syncope and collapse (Acute 10/06/12) Lumbar spinal stenosis Migraine Medical History Osteoporosis Surgical History Surgical history of tubal ligation S/P cholecystectomy Family History Grandmother (Paternal) Breast cancer Cancer Uncle Cancer Mother No pertinent family history Social History Smoking Status: Unknown if ever smoked Feels Safe at Home: Yes Review of Systems A total of 10 systems reviewed and were otherwise negative Physical Exam Vital Signs Vital Signs - 24 hr 07/23/24 03:57 02/02/24 03:58 Temperature 36.8 C Temperature Source Oral Pulse Rate 91 H 89 Respiratory Rate 17 Respiratory Effort / Characteristics Non-Labored Spontaneous Respiratory Depth Normal Respiratory Pattern Regular Blood Pressure 141/93 H Blood Pressure Mean 109 Pulse Oximetry 94 Oxygen Delivery Method Room Air Sepsis Recent Fever Within 48 Hours No Sepsis New/Unexplained Change in Mental Status No Sepsis Action Taken by Nursing No Action Required VITALS: Vitals are noted on the nurse's note and reviewed by myself. Vital signs stable. GENERAL: White female following commands, in no acute distress, nondiaphoretic, well-developed well-nourished. SKIN: The skin was without rashes, erythema, edema, or bruising. There is no tenting of the skin. Capillary reflex less than 2 seconds. HEAD: Normocephalic atraumatic. EARS: External auditory canals clear EYES: Pupils equal round and reactive to light and accommodation. Conjunctivae without injection, sclerae without icterus. Extraocular movements intact. NOSE: Patent, no discharge. MOUTH: Mucous membranes moist. Pharynx without erythema or exudate. Uvula midline. Airway patent. Tongue does not deviate. NECK: Supple without nuchal rigidity. No lymphadenopathy. No thyromegaly. Cervical spine is nontender. No JVD. HEART: Regular rate and rhythm LUNGS: Clear to auscultation bilaterally without wheezes, rales or rhonchi. No retractions or accessory muscle use. ABDOMEN: Positive bowel sounds x 4. Normal tympanic percussion. Soft, nontender, without masses or organomegaly. Dhillon sign negative. No guarding or rebound tenderness. No CVA tenderness MUSCULOSKELETAL: No muscle atrophy, erythema, or edema noted. NEURO: Patient was alert and oriented to person place and time. Normal sensation to light and sharp touch. Cranial nerves II through XII grossly intact. No pronator drift. Cerebellar exam intact. No focal neurological deficits. Course Administered Medications Discontinued Medications Acetaminophen (Ofirmev) 1,000 mg in 100 mls @ 400 mls/hr IV NOW STA Stop: 02/02/24 04:46 Last Admin: 02/02/24 04:46 Dose: 400 mls/hr Documented By: MED Medical Decision Making Medical Records Attestation: I reviewed the patient's medical records. Home Medications Current Medication List: was personally reviewed by fl Laboratory Data Attestation: I reviewed the patient's lab results. 02/02/24 03:58 02/02/24 03:58 Lab Results 02/02/24 02/02/24 Range/Units 03:55 03:58 WBC 10.98 H (4.8-10.8) K/ul RBC 4.66 (4.20-5.40) M/uL Hgb 13.4 (12.0-16.0) g/dl Hct 40.9 (37.0-47.0) % MCV 87.8 (80.0-100.0) fL MCH 28.8 (25.0-34.0) pg MCHC 32.8 (32.0-36.0) g/dL RDW Std Deviation 46.8 H (36.4-46.3) fL RDW Coeff of Ruben 14.6 H (11.5-14.5) % Plt Count 280 (130-400) K/uL MPV 9.8 (9.4-12.4) fL Immature Gran % (Auto) 0.4 % Neut % (Auto) 69.6 % Lymph % (Auto) 21.7 % [place] % (Auto) 7.5 % Eos % (Auto) 0.5 % Baso % (Auto) 0.3 % Neut # (Auto) 7.65 H (1.40-6.50) K/uL Lymph # (Auto) 2.38 (1.20-3.40) K/uL [place] # (Auto) 0.82 H (0.11-0.59) K/uL Eos # (Auto) 0.06 (0.00-0.50) K/uL Baso # (Auto) 0.03 (0.00-0.20) K/uL Immature Gran # (Auto) 0.04 (0.01-0.20) K/uL PT 15.1 H (9.0-12.0) Seconds INR 1.4 H (0.9-1.1) APTT 28 (21-31) Seconds PTT Ratio 1.0 Sodium 137 (136-145) mmol/L Potassium 3.9 (3.5-5.1) mmol/L Chloride 103 (98-107) mmol/L Carbon Dioxide 25 (21-32) mmol/L Anion Gap 9 (3-11) BUN 14 (6-23) mg/dl Creatinine 0.82 (0.6-1.2) mg/dl Est Cr Clr Drug Dosing Not Reportable Est GFR ( Amer) 91.4 ml/min Est GFR (Non-Af Amer) 78.9 ml/min BUN/Creatinine Ratio 17.1 (10-20) Glucose 99 (70-99(Fasting)) mg/dl Lactate 1.1 (0.4-2.0) mmol/L Calcium 9.5 (8.6-10.3) mg/dl Magnesium 1.9 (1.7-2.4) mg/dl Total Bilirubin 0.3 (0.2-1.0) mg/dl Direct Bilirubin 0.1 (0-0.2) mg/dl AST 21 (13-39) U/L ALT 12 (7-52) U/L Alkaline Phosphatase 110 H (34-104) U/L Troponin I High Sens 3.6 (0-14) pg/ml Total Protein 8.1 (6.0-8.3) gm/dl Albumin 4.1 (3.4-5.0) gm/dl Procalcitonin < 0.02 (0-0.5) ng/ml TSH 3.743 (0.300-4.500) uIu/ml Adenovirus (PCR) Not Detected (NotDetected) B. pertussis DNA (PCR) Not Detected (NotDetected) B.parapertussis DNA PCR Not Detected (NotDetected) C. pneumoniae DNA (PCR) Not Detected (NotDetected) Coronavirus OC43 (PCR) Not Detected (NotDetected) Coronavirus HKU1 (PCR) Not Detected (NotDetected) Coronavirus 229E (PCR) Not Detected (NotDetected) SARS-CoV-2 (PCR) Not Detected (NotDetected) Coronavirus NL63 (PCR) Not Detected (NotDetected) Human Metapneumovir PCR Not Detected (NotDetected) Influenza Type A (PCR) Not Detected (NotDetected) Influenza Type B (PCR) Not Detected (NotDetected) M. pneumoniae (PCR) Not Detected (NotDetected) Parainfluenza 1 (PCR) Not Detected (NotDetected) Parainfluenza 2 (PCR) Not Detected (NotDetected) Parainfluenza 3 (PCR) Not Detected (NotDetected) Parainfluenza 4 (PCR) Not Detected (NotDetected) RSV (PCR) Not Detected (NotDetected) Entero/Rhino (PCR) Not Detected (NotDetected) Imaging Data Attestation: I personally reviewed and interpreted this imaging study as follows: Radiologist's Impression: Head CT 02/02/24 03:53 Exam(s): CT HEAD Without Contrast EXAM: CT Head Without Intravenous Contrast CLINICAL HISTORY: Reason for exam: severe BARCLAY on coumadin. TECHNIQUE: Axial computed tomography images of the head/brain without intravenous contrast. CTDI is 38.64 mGy and DLP is 624.41 mGy-cm. Automated exposure control was utilized for the study. A dose lowering technique was utilized adhering to the principles of ALARA. COMPARISON: Comparison made to prior brain MRI from October 03, 2015.. FINDINGS: Brain: Unremarkable. No hemorrhage. No significant white matter disease. No edema. Ventricles: Unremarkable. No ventriculomegaly. Bones/joints: Unremarkable. No acute fracture. Soft tissues: Unremarkable. Sinuses: Unremarkable as visualized. No acute sinusitis. Mastoid air cells: Unremarkable as visualized. No mastoid effusion. IMPRESSION: No evidence of acute intracranial pathology. Electronically signed by: Sravanthi Landry MD 02/02/24 05:12 AM MDM Narrative Prior records/ancillary studies reviewed and summarized above. Nursing notes reviewed. Additional history obtained from EMS. The patient's history was concerning for increased confusion and severe headache on Coumadin. Differential diagnosis: Etiologies such as intracranial bleed, metabolic, infection, hypo/hyperglycemia, electrolyte abnormalities, cardiac sources, intracerebral event, toxicologic, neurologic, as well as others were entertained. Physical examination: As above. ER treatment provided: IV Lock An order was placed for continuous cardiac monitoring. The monitor shows a rate of 60-100 with a sinus rhythm per my interpretation. Patient was immediately taken to CAT scan Patient's note from the PCP was reviewed. She was given steroids and amoxicillin History is also obtained from the and states the patient gets confused sometimes with side effects to medications. On reassessment the patient felt better. Diagnostics interpretation by me: ECG: Ordered for confusion EKG: Normal sinus, poor baseline, no acute ST-T wave changes, rate of 90. Impression normal sinus rhythm independently interpreted by myself The labs Independently Interpreted by myself revealed mild leukocytosis most likely from prednisone use. Negative lactic Blood cultures pending Euthyroid, negative troponin Subtherapeutic INR Negative BioFire Imaging studies: Chest x-ray with no acute consolidation, pneumothorax or free air per my independent or potation CT was reviewed and read by radiology Consultation: A consultation was placed with the hospitalist. The case was discussed and diagnostics were reviewed. The patient was evaluated in the ER for further treatment. Exam and history seem consistent with increased confusion most likely related to steroid use. Medicine was consulted and the case was discussed. Patient be admitted to the medical service. Patient is agreeable. No obvious source of infection. Negative PET scan. Clear x-ray. By the evaluation outlined above emergent etiologies such as electrolyte abnormalities, cardiac sources, intracerebral event, abnormalities blood glucose, metabolic, as well as others were deemed relatively unlikely. The pt informed about the findings as listed above. All questions were answered and pleased with the treatment. The chart was completed utilizing [employer] Speech voice recognition software. Grammatical errors, random word insertions, pronoun errors, and incomplete sentences are an occassional consequence of this system due to software limitations, ambient noise, and hardware issues. Any formal questions or concerns about the content, text, or information contained within the body of this dictation should be directly addressed to the physician criminal legal assistant for clarification. Impression & Plan Altered mental status, Headache Discharge Plan Visit Data Chief Complaint: Illness Stated Complaint: GENERALIZED ILLNESS, NOT FEELING WELL, CONFUSION ED Provider: Darling Gonzáles ED Midlevel Provider: Lucia Olea Discharge Problem: Altered mental status, Headache Patient Disposition: Admitted As Inpatient Condition: Good Forms Stand Alone Forms: My [facility] Prescriptions Prescriptions: No Action Centrum Women 18-400 mg-mcg tablet 2 tab PO DAILY levothyroxine [Synthroid] 50 mcg tablet 50 mcg PO DAILY citalopram 10 mg tablet 10 mg PO BID loratadine [Claritin RediTabs] 10 mg tablet,disintegrating 10 mg PO DAILY diphenhydramine-acetaminophen [Tylenol PM Extra Strength] 25-500 mg tablet 2 tab PO HS PRN (Reason: Sleep) cholecalciferol (vitamin D3) 125 mcg (5,000 unit) capsule 10,000 unit PO DAILY alendronate 70 mg tablet 70 mg PO Q7D cyclobenzaprine 10 mg tablet 10 mg PO BID PRN (Reason: muscle spasm) Qty: 180 5RF biotin 10 mg Tablet 10 mg PO DAILY ascorbic acid (vitamin C) [Vitamin C] 1,000 mg Tablet 1 g PO DAILY cyanocobalamin (vitamin B-12) [Vitamin B-12] 1,000 mcg Tablet 1,000 mcg PO DAILY vitamin A 3,000 mcg (10,000 unit) Capsule 3,000 mcg PO DAILY calcium carbonate [Tums] 200 mg calcium (500 mg) Tablet,Chewable 400 mg PO DIRECTED PRN (Reason: HEARTBURN/INDIGESTION) warfarin 1 mg tablet 1 - 2 mg PO QPM Rx Instructions: TAKE DIRECTED BY ANTICOAG. Saccharomyces boulardii 10 billion cell Capsule 10,000 mmu cells PO DAILY epinephrine 0.3 mg/0.3 mL auto-injector 0.3 mg IM UD PRN (Reason: Allergic Reaction) Linzess 145 mcg capsule 145 mcg PO DAILYBB Referrals Referrals: Shawna Malhotra MD [Primary Care Provider] - Discharge Problem: Altered mental status Qualifiers: Altered mental status type: unspecified Qualified Code(s): R41.82 - Altered mental status, unspecified
[2024-02-02 04:28] LABS: Basophils # (auto) 0.03 K/uL (0.00-0.20); Basophils % (auto) 0.3 %; Eosinophils # (auto) 0.06 K/uL (0.00-0.50); Eosinophils % (auto) 0.5 %; Hematocrit (blood only) 40.9 % (37.0-47.0); Hemoglobin 13.4 g/dl (12.0-16.0); Immature Granulocytes # (auto) 0.04 K/uL (0.01-0.20); Immature Granulocytes % (auto) 0.4 %; Lymphocytes # (auto) 2.38 K/uL (1.20-3.40); Lymphocytes % (auto) 21.7 %; Mean Corpuscular Hemoglobin 28.8 pg (25.0-34.0); Mean Corpuscular Hgb Conc 32.8 g/dL (32.0-36.0); Mean Corpuscular Volume 87.8 fL (80.0-100.0); Mean Platelet Volume 9.8 fL (9.4-12.4); Monocytes # (auto) 0.82 K/uL (0.11-0.59); Monocytes % (auto) 7.5 %; Neutrophils # (auto) 7.65 K/uL (1.40-6.50); Neutrophils % (auto) 69.6 %; Platelet Count 280 K/uL (130-400); RDW Coefficient of Variation 14.6 % (11.5-14.5); RDW Standard Deviation 46.8 fL (36.4-46.3); Red Blood Count 4.66 M/uL (4.20-5.40); White Blood Count 10.98 K/ul (4.8-10.8)
[2024-02-02 04:42] LABS: Alanine Aminotransferase 12 U/L (7-52); Albumin Level 4.1 gm/dl (3.4-5.0); Alkaline Phosphatase 110 U/L (34-104); Anion Gap 9 (3-11); Aspartate Aminotransferase 21 U/L (13-39); BUN Creatinine Ratio 17.1 (10-20); Bilirubin Direct 0.1 mg/dl (0-0.2); Bilirubin,Total 0.3 mg/dl (0.2-1.0); Blood Urea Nitrogen 14 mg/dl (6-23); Calcium 9.5 mg/dl (8.6-10.3); Carbon Dioxide 25 mmol/L (21-32); Chloride 103 mmol/L (98-107); Est GFR (African American) 91.4 ml/min; Est GFR (Non-African American) 78.9 ml/min; Glucose 99 mg/dl (70-99(Fasting)); Magnesium 1.9 mg/dl (1.7-2.4); Potassium 3.9 mmol/L (3.5-5.1); Sodium 137 mmol/L (136-145); Total Protein 8.1 gm/dl (6.0-8.3)
[2024-02-02] MEDS: ACETAMINOPHEN 1,000 MG/100 ML VIAL IV STA (04:46)
[2024-02-02 04:49] LABS: Troponin I High Sensitivity 3.6 pg/ml (0-14)
[2024-02-02 04:56] LABS: INR 1.4 (0.9-1.1); Partial Thromboplastin Time 28 Seconds (21-31); Prothrombin Time 15.1 Seconds (9.0-12.0)
[2024-02-02 04:58] LABS: Thyroid Stimulating Hormone 3.743 uIu/ml (0.300-4.500)
--- NOTE | 2024-02-02 05:12 | CT Scan Report ---
Exam(s): CT HEAD Without Contrast EXAM: CT Head Without Intravenous Contrast CLINICAL HISTORY: Reason for exam: severe BARCLAY on coumadin. TECHNIQUE: Axial computed tomography images of the head/brain without intravenous contrast. CTDI is 38.64 mGy and DLP is 624.41 mGy-cm. Automated exposure control was utilized for the study. A dose lowering technique was utilized adhering to the principles of ALARA. COMPARISON: Comparison made to prior brain MRI from October 03, 2015.. FINDINGS: Brain: Unremarkable. No hemorrhage. No significant white matter disease. No edema. Ventricles: Unremarkable. No ventriculomegaly. Bones/joints: Unremarkable. No acute fracture. Soft tissues: Unremarkable. Sinuses: Unremarkable as visualized. No acute sinusitis. Mastoid air cells: Unremarkable as visualized. No mastoid effusion. IMPRESSION: No evidence of acute intracranial pathology. Electronically signed by: Sravanthi Landry MD 02/02/24 05:12 AM
--- NOTE | 2024-02-02 05:17 | Emergency Department Note ---
ED Visit Note I was consulted by the Advanced Practice Provider. I approved the management plan after discussion with the physician cardiovascular physician assistant including: -History/Physical -MDM -I independently interpreted the following studies:Studies and results .
[2024-02-02 05:41] LABS: Adenovirus PCR Not Detected (NotDetected); Bordetella parapertussis PCR Not Detected (NotDetected); Bordetella pertussis PCR Not Detected (NotDetected); Chlamydia pneumoniae PCR Not Detected (NotDetected); Coronavirus 229E PCR Not Detected (NotDetected); Coronavirus CoV-2 (COVID19)PCR Not Detected (NotDetected); Coronavirus HKU1 PCR Not Detected (NotDetected); Coronavirus NL63 PCR Not Detected (NotDetected); Coronavirus OC43PCR Not Detected (NotDetected); Human Metapneumovirus PCR Not Detected (NotDetected); Influenza A PCR Not Detected (NotDetected); Influenza B PCR Not Detected (NotDetected); Mycoplasma pneumoniae PCR Not Detected (NotDetected); Parainfluenza Virus 1 PCR Not Detected (NotDetected); Parainfluenza Virus 2 PCR Not Detected (NotDetected); Parainfluenza Virus 3 PCR Not Detected (NotDetected); Parainfluenza Virus 4 PCR Not Detected (NotDetected); Respiratory Syncytial VirusPCR Not Detected (NotDetected); Rhinovirus/Enterovirus PCR Not Detected (NotDetected)
--- OUTSIDE RECORDS SUMMARY | 2024-02-02 05:43 | External Medical Summary ---
Author Name Unknown Address Unknown Organization : Laboratory Report Ordering Provider Test Date Status NATALIO VOGT 01/04/2024 10:53:03 Final Therapeutic ranges for non-o perative patients:
Prophylaxsis/treatment of DVT: (Range:2.0-3.0)
Treatment of pulmonary embolism:(Range:2.0-3.0)
Prevention of systemic embolism from:
-tissue heart valves
-acute myocardial infarction
-valvular heart disease
-atrial fibrillation
(Range: 2.0-3.0)
Mechanical prosthetic valves: (Range: 2.5-3.5) Observation Date Value Abnormality Reference (Units ) Status INR in Capillary blood by Coagulation assay 01/04/2024 10:53:03 1.6 (INR) Final Performing Location
--- OUTSIDE RECORDS SUMMARY | 2024-02-02 05:43 | External Medical Summary ---
Author Name Unknown Address Unknown Organization : Laboratory Report Ordering Provider Test Date Status RIZWAN RODRÍGUEZ 02/01/2024 10:34:24 Final Therapeutic ranges for non-o perative patients:
Prophylaxsis/treatment of DVT: (Range:2.0-3.0)
Treatment of pulmonary embolism:(Range:2.0-3.0)
Prevention of systemic embolism from:
-tissue heart valves
-acute myocardial infarction
-valvular heart disease
-atrial fibrillation
(Range: 2.0-3.0)
Mechanical prosthetic valves: (Range: 2.5-3.5) Observation Date Value Abnormality Reference (Units ) Status INR in Capillary blood by Coagulation assay 02/01/2024 10:34:24 1.4 (INR) Final Performing Location
--- OUTSIDE RECORDS SUMMARY | 2024-02-02 05:43 | External Medical Summary | Summary of Care ---
Author Name Unknown Organization [facility] Address [address] [place] [address] Phone [phone] Care Team Providers Care Dietary Service Aide Name Role Phone Shawna Malhotra MD Primary Care Provider + Reason for Visit * Reason Comments Dosage Adjustment In Person (Anticoag Cl inic) Encounter Details Date Type Department Care Team (Latest Contact Info) Description 02/01/2024 10:30 AM EDT Anticoagulation Pharmacy, [place] [address] [place] [address] [facility] [address] [place] [address] Anticoagulation management encounter*; History of deep venous thrombosis; Cerebral ischemia Allergies Active Allergy Reactions Criticality Noted Date Comments Aspirin 12/12/1998 hives Banana 09/23/2021 Other reaction(s): Anaphylaxisis Clarithromycin 08/28/2004 hives Doxepin 10/01/2015 Fish Oil 12/21/2020 Banana Hydrocodone 11/10/2013 Itching and alertness Hydroxyzine 04/16/2021 headache Ibuprofen Hives 04/09/2010 Ibuprofen 09/23/2021 Other reaction(s): Hives Cephalexin 07/18/2012 Headaches Levetiracetam Neuro complications (Please comment) 10/20/2016 More headaches and "took my sight away- Completely" Kiwi Extract Anaphylaxis High 08/17/2007 Mouth swelling Kiwi Extract 09/23/2021 Other reaction(s): Anaphylaxisis Enoxaparin Sodium Hives,Itching 04/09/2010 Hives developed after several exposures to Lovenox. Occurred past 2 uses. Morphine Hcl 04/15/2007 Gabapentin 12/14/2007 Abdominal pain, "head pain" Nsaids 12/28/2002 hives, fever Nutritional Supplements Anaphylaxis High 12/07/2008 Throat swelling Hives - vitamin K containing Food (See Comments) Anaphylaxis High 11/16/2006 Holabird, kiwis and bananas Pantoprazole Sodium Hives,Other (Please comment) 01/21/2012 Hives, tinnitus and headache Famotidine 08/02/2019 acne Prednisone 10/20/2014 Rash, mood change Pseudoephedrine 04/09/2010 Sulfamethoxazole W/Trimethoprim (Co-Trimoxazole) 12/28/2002 dizzy Benzonatate Other (Please comment) 01/29/2024 DIZZINESS Topamax Psych complications 05/19/2014 Deeper depression, suicidal ideation Topiramate 09/23/2021 Other reaction(s): Psych Complications Triptans 08/22/2004 Tramadol Hcl 05/26/2007 documented as of this encounter (statuses as of 02/01/2024) Medications Medication Sig Dispensed Refills Start Date End Date Status LANCETS MISCIndications:Hyp oglycemia testing three times daily/251.2 3 Box 3 09/24/2010 Active ONETOUCH ULTRASOFT LANCETS MISCIndications:Imp aired fasting glucose Use up to four times a day as directed 1 Box 11 09/27/2010 Active ONETOUCH ULTRA TEST STRPIndications:Imp aired fasting glucose Use up to four times a day as directed 100 Strip 11 09/27/2010 Active Probiotic Product (PROBIOTIC ACIDOPHILUS) Capsule Take by mouth 1 Capsule daily . Pt takes the granules 04/28/2016 Active Cyanocobalamin (VITAMIN B-12) 2500 MCG Sublingual Tablet Take 1 Tablet by mouth in the morning. Active cyclobenzaprine (FLEXERIL) 10 MG Tablet 1 Tablet. two tablets at bedtime 03/08/2018 Active LORazepam 0.5 MG Oral Tablet (Ativan)Indications :CHATO (generalized anxiety disorder) One pill twice daily as needed 60 Tab 08/07/2020 Active Vitamin C 125 MG Oral Tablet Chewable take 500mg daily 10/26/2020 Active Tums Ultra 1000 1000 MG Oral Tablet Chewable (Calcium Carbonate Antacid) 2 chews three times daily 10/26/2020 Active Vitamin A 3 MG (06263 UT) Oral Capsule (Aquasol-A) TAKE 1 CAPSULE BY MOUTH EVERY DAY 90 Cap 1 03/28/2021 Active Meclizine HCl 25 MG Oral Tablet (Antivert)Indicatio ns:Dizziness TAKE 1 TAB BY MOUTH 3 TIMES A DAY NEEDED FOR DIZZINESS. 30 Tab 5 04/04/2021 Active Vitamin D3 125 MCG (5000 UT) Oral Capsule Take 2 daily. Dx E55.9 60 Cap 3 04/03/2021 Active Multivitamin Adult Oral Tablet Chewable Take by mouth. Osteo multivit from [employer]. Active NATURAL SUPPLEMENT Take by mouth daily. Severo Melts- 1 tablet daily Active Biotin 41782 MCG Oral Tablet Take by mouth 2 Chip daily . Active Acetaminophen 500 MG Oral Tablet Take 1 Tablet by mouth every 6 hours as needed. Active Tylenol PM Extra Strength 500-25 MG Oral Tablet (diphenhydrAMINE-AP AP (sleep)) Take 1 Tablet by mouth 3 times a day as needed for Itching. Active Bisacodyl 10 MG Rectal Suppository (Dulcolax) One daily as needed for constipation 24 Suppository 1 08/21/2022 Active Caltrate 600+D Plus Minerals 600-800 MG-UNIT Oral Tablet Chewable Take 2 Tablets by mouth in the morning. Active Magnesium 100 MG Oral Capsule Take 1 Capsule by mouth in the morning. Active Multivitamin Adult Oral Tablet Chewable Take 2 Units by mouth in the morning. Active Tamsulosin HCl 0.4 MG Oral Capsule (Flomax) Take 1 Capsule by mouth in the morning. 04/13/2023 Active linaCLOtide 145 MCG Oral Capsule (Linzess) Take 1 Capsule by mouth daily before breakfast. 90 Capsule 3 06/03/2023 Active Alendronate Sodium 70 MG Oral Tablet (Fosamax)Indication s:Senile osteoporosis Take 1 Tablet by mouth once a week. with 8 oz. water 30 minutes before first meal of the day. Remain upright for 30 min after taking tablet. 5 Tablet 11 07/08/2023 Active Warfarin Sodium 1 MG Oral Tablet (Coumadin)Indicatio ns:Acute embolism and thrombosis of deep vein of lower extremity, unspecified laterality (HCC) TAKE 1 TO 2 TABLETS BY MOUTH DAILY INSTRUCTED BY COUMADIN CLINIC Strength: 1 mg 180 Tablet 3 09/23/2023 Active Nystatin 989742 UNIT/GM External Powder (Nystop) Apply topically to affected area 3 times a day. Apply to abdominal fold as needed 60 g 5 10/08/2023 Active EpiPen 2-Aramis 0.3 MG/0.3ML Injection Solution Auto-injectorIndica tions:Anaphylaxis,M ultiple allergies Inject 0.3 mg into large muscle. For multiple severe allergies. 1 Each 5 10/08/2023 Active Levothyroxine Sodium 50 MCG Oral Tablet (Levoxyl)Indication s:Acquired hypothyroidism TAKE 1 TABLET BY MOUTH EVERY DAY AT LEAST 30 MIN BEFORE BREAKFAST OR OTHER MEDICATION 90 Tablet 3 11/11/2023 Active Citalopram Hydrobromide 20 MG Oral Tablet (CeleXA)Indications :OA (osteoarthritis) TAKE 1 TABLET BY MOUTH EVERY DAY 90 Tablet 1 01/21/2024 Active methylPREDNISolone 4 MG Oral Tablet Therapy Pack (Medrol Dosepack)Indication s:Mild intermittent asthma with exacerbation follow package directions. Pt allergic to prednisone but not medrol pack and had it before 21 Tablet 01/29/2024 Active Albuterol Sulfate HFA 108 (90 Base) MCG/ACT Inhalation Aerosol SolutionIndications :Mild intermittent asthma with exacerbation Inhale 2 Puffs by mouth in the morning and 2 Puffs at noon and 2 Puffs in the evening and 2 Puffs before bedtime. 18 g 3 01/29/2024 Active Spacer/Aero-Holding Chambers DeviceIndications:M ild intermittent asthma with exacerbation Use with inhaler. 1 Each 01/29/2024 Active Ondansetron 4 MG Oral Tablet Disintegrating (Zofran)Indications :Nausea and vomiting, unspecified vomiting type Place 1 Tablet on tongue every 8 hours as needed for Nausea. dissolve on tongue. 20 Tablet 1 01/29/2024 Active Amoxicillin 500 MG Oral Capsule (Amoxil)Indications :Mild intermittent asthma with exacerbation Take 1 Capsule by mouth in the morning and 1 Capsule at noon and 1 Capsule before bedtime. Do all this for 10 days. 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 Food insecurity 03/24/2022 Overview: Per [facility] Protocol Mallet finger of right hand 07/11/2020 Seizure disorder, simple par tial, without intractable epilepsy 02/21/2020 Polyneuropathy in other diseases classified else where 08/19/2019 Cerebral ischemia 08/19/2019 Unspecified asthma, uncomplicated 08/19/2019 Acquired hypothyroidism 08/19/2019 Claustrophobia 08/19/2019 Major depressive disorder, recurrent, moderate 0 09/24/2018 History of deep venous thrombosis 04/13/2017 Hypoglycemia 04/02/2015 GERD (gastroesophageal reflux disease) 1 Postgastric surgery syndrome 01/15/2009 Intestinal postoperative nonabsorption 9 salvage determiner current use of anticoagulant therapy 0 08/03/2003 Anticoagulation management encounter 01/11/2002 COMMON MIGRAINE WITHOUT MENTION OF INTRACTABLE M IGRAINE Gastroparesis Insomnia OA (osteoarthritis) documented as of this encounter (statuses as of 02/01/2024) Resolved Problems Problem Noted Date Diagnosed Date Resolved Date Type 2 diabetes mellitus wit h diabetic neuropathy, unspecified 10/18/2019 02/21/2020 Type 2 diabetes mellitus wit h diabetic neuropathy, unspecified 09/24/2018 09/24/2018 Diabetes mellitus without complication 09/24/2018 09/24/2018 Unspecified convulsions 09/24/201806/12 Chronic daily headache 03/25/201301/06 Acute gastric ulcer without mention of hemorrhage, perforation, or obstruction 11/18/2010 03/27/2014 Chronic constipation 08/19/2010 014 Acute duodenal ulcer without mention of hemorrhage, perforation, or obstruction 08/19/2010 11/04/2016 Myalgia and myositis 03/08/2010 017 Acute gastric ulcer without mention of hemorrhage, perforation, or obstruction 12/23/2009 11/04/2016 Overview: Ulcer found at her anastomatic site. Abdominal pain, left lower quadrant 11/09/2009 04/05/2019 Abdominal pain, left upper quadrant 11/09/2009 03/27/2014 Overweight (BMI 25.0-29.9) 10/08/2009 0 01/06/2017 Overview: Per Obesity Taxonomy Overweight (BMI 25.0-29.9) 10/08/2009 0 03/27/2014 Overview: Per Obesity Taxonomy Nausea 05/10/2009 04/05/2019 Overview: ICD-10 update of inactive term Chronic constipation 12/01/2008 017 Morbid Obesity, BMI not known 10/27/2008 10/08/2009 Overview: Per Obesity Taxonomy steatohepatitis 01/21/2008 11/04/2016 Major depressive disorder 05/27/2007 Overview: ICD-10 update of inactive term ADVANCE DIRECTIVE INFORMATION 03/18/2005 11/04/2016 Overview: No, Advance Directive brochure offered , patient declined. Hemorrhage of rectum and anus 07/18/2004 01/06/2017 FOOD ALLERGY - [place] 11/27/20032018 ALLERGIC RHINITIS - MIXED TYPE 06/12/2003 06/26/2020 Intermittent asthma with rel iever use up to twice per week 06/12/2003 08/23/2013 OBESITY, UNSPECIFIED 010 Overview: Per Obesity Taxonomy Constipation 01/06/2017 Intervertebral disc prolapse 11/04/2016 Venous thrombosis 04/13/2017 Reflux esophagitis 2 Overview: More specific diagnosis Vertigo 01/06/2017 documented as of this encounter (statuses as of 02/01/2024) Immunizations Name Administration Dates Next Due COVID-19, LNP-s, No Preserve , Rony-sucrose, Ages 12+ (Noquo) 08/22/2022 Covid-19, Mrna, Lnp-s, Pf, B ivalent, 30 Mcg, IM, 12 yrs and above (Pfizer) 06/19/2022 H1N1 2009 Influenza, IM 07/05/2009 Hepatitis B Vaccine, Recombi nant, Adjuvanted, 20 mcg/mL (Heplisav-B) 12/10/2022,11/06/2022 Pneumococcal Conjugate Vacci ne, 20-valent (Savgolo07) 11/06/2022 Pneumococcal Polysaccharide PPV23 (Pneumovax) 04/19/2009 Seasonal Influenza, PF, 6 M & above, IM , (FluLaval or Fluzone) 04/21/2023,04/24/2022,04/16/2021,04/24,04/05/2019,03/19/2018,04/07/2017 Seasonal Influenza, Quadriva lent, No Preserve, IM 05/01/2016,04/09/2015 Seasonal Influenza, Split, I IV3, With Preserve, Inj 04/09/2015,05/26/2014,04/01/2013,06/07,04/01/2011,04/16/2010,04/19/2009 ,04/27/2008,05/25/2007,06/09/2006 TDAP (age 10 and older)(Boostrix) 02/05/2014, TDAP, Age 7 and older, IM (Adacel) 02/05/2014, Zoster Vaccine Recombinant (Shingrix) 05/02/2020 ,02/27/2020,03/19/2018 documented as of this encounter Social History Tobacco Use Types Packs/Day Years Used Date Smoking Tobacco: Never Smokeless Tobacco: Never Comments:Passive smoke expos ure while Pt is currently Alcohol Use Standard Drinks/Week Comments Yes 0 (1 standard drink = 0.6 oz pur e alcohol) Holidays AUDIT-C Answer Date Recorded Q1: How often do you have a drink containing alc ohol? Monthly or less 10/18/2020 Q2: How many drinks containi ng alcohol do you have on a typical day when you are drinking? Not asked 10/18/2020 Q3: How often do you have si x or more drinks on one occasion? Not asked 10/18/2020 PHQ-2 Answer Date Recorded PHQ Adult Total Score 14 04/21/2023 Hunger Vital Sign Answer Date Recorded Within the past 12 months, y ou worried that your food would run out before you got the money to buy more. Sometimes true Within the past 12 months, t he food you bought just didn't last and you didn't have money to get more. Often true Utilities Answer Date Recorded Do you have trouble paying y our heating, water, or electric bill? (Adult - for ages 18 years and over) Not on file 12/29/2023 Is your family able to pay t he heat, water, or electric bill? (Household - for ages 0-17 years) Not on file 12/29/2023 Does your family have access to good internet? (Household - for ages 0-17 years) Not on file 12/29/2023 Social Connections Answer Date Recorded How often do you feel lonely or isolated from those around you? (Adult - for ages 18 years and over) Not on file 12/29/2023 Sex and Gender Information Value Date Recorded Sex Assigned at Female 04/05/2019 11:50 AM EDT Gender Identity Female 04/05/2019 11:50 AM EDT Sexual Orientation Straight 04/05/2019 11 :50 AM EDT Job Start Date Occupation Industry Not on file Not on file Not on file documented as of this encounter Progress Notes * Yadi Bazan, [facility] - 02/01/2024 10:29 AM EDT Images from the original note were not included. Medication Therapy Disease Management - Anticoagulation Patient: Carolee Zafar | : 1965 Subjective Patient-Reported Symptoms: Patient Findings Positives: Change in medications (started on albuterol inhaler and script for methylprednisolone) Negatives: Signs/symptoms of thrombosis, Signs/symptoms of bleeding, Change in health, Change in alcohol use, Change in activity, Upcoming invasive procedure, Missed doses, Extra doses, Change in diet/appetite, Bruising Objective Current Warfarin Dose As of 02/01/2024 Warfarin maintenance plan: 2 mg (1 mg x 2) every Wed; 1 mg (1 mg x 1) all other days INR Result As of 02/01/2024 INR goal: 1.8-2.5 INR used for dosin.4 (02/01/2024) Assessment & Plan Warfarin Plan As of 02/01/2024 Full warfarin instructions: 01/31: 1.5 mg; Otherwise 2 mg every Thu, Thu; 1 mg all other days Next INR check: 02/22/2024 Repeat PT/INR in 3 week(s) Weekly dose: increased Additional Dosing Information: Yadi Bazan [facility] Clinical Pharmacist 02/01/2024, 10:29 AM documented in this encounter Plan of Treatment Upcoming Encounters Date Type Department Care Team (Late st Contact Info) Description 02/05/2024 10:30 AM EDT Imaging Vascular Lab, [facility] [place] 2nd Floor, [place] [address] [address] 02/08/2024 3:00 PM EDT Office Visit Orthopaedics [facility] [address] [address] Adonis James, [address] [address] 02/22/2024 9:50 AM EDT Anticoagulation Pharmacy, [address] [address] [facility] [place] [address] 03/30/2024 11:20 AM EDT Office Visit Nutrition & Weight Management, [facility] [address] [address] La Beltran PA-C [address] [address] 03/30/2024 12:30 PM EDT Nutrition Services Nutrition & Weight Management, [facility] [address] [address] Liliana Hernandez RDN [address] [place] [address] 05/25/2024 10:00 AM EST Office Visit General Internal Medicine [facility] [address] [place] [address] Shawna Malhotra MD [address] [facility] [address] [address] Scheduled Procedures Name Priority Associated Diagnoses Date/Ti me COLONOSCOPY FLEXIBLE PROXIMA L DIAGNOSTIC Recall Encounter for screening colonoscopy Health Maintenance Due Date Last Done Comments HPV/Co-Test 12/23/1995 Cologuard 2010 Fecal Occult Blood Test 2010 Sigmoidoscopy 2010 COVID-19 Vaccine ( season) 2023 08/22/2022, 06/19/2022 DTaP,Tdap,and Td Vaccines (5 - Td or Tdap) 02/06/2024 02/05/2014, 02/05/2014, 01/28/2008, Additional history exists Influenza Vaccine (FLU shot) (#1) 2024 04/21/2023, 04/24/2022, 04/16/2021, Additional history exists Depression Monitoring 04/21/2024 04/21/2023 Mammogram 10/21/2024 10/22/2023, 10/11, 10/20/2022, Additional history exists TSH 12/08/2024 12/09/2023, 11/2021, 11/08/2021, Additional history exists DXA Scan 03/12/2025 03/12/2023, 02/12, 07/23/2020 Cervical Cancer Screening 04/09/2025 Pap Smear 04/09/2025 04/09/2022, 06/13, 04/02/2015, Additional history exists Colonoscopy 06/12/2026 06/12/2016, 1207/2015, 07/29/2004, Additional history exists Colorectal Cancer Screening 06/12/2026 Diabetes Screening 12/08/2026 12/09/2023, 0 03/24/2023, 03/24/2023, Additional history exists Zoster Vaccines Completed 05/02/2020, 02/10, 03/19/2018 Pneumococcal Vaccine: Pediatrics (0 to 5 Years) and At-Risk Patients (6 to 64 Years) Completed 11/06/2022, 04/19/2009 Hepatitis B Vaccine Completed 12/10/2022, VITAMIN D LEVEL ONCE IN A LIFETIME-USE SMARTSET# [id number] Completed 03/24/2023, 11/06/2022, 06/16/2022, Additional history exists HPV (Gardasil) Vaccine Aged Out No lo nger eligible based on patient's age to complete this topic MENINGOCOCCAL (MENACTRA/MENVEO) Aged Out No longer eligible based on patient's age to complete this topic documented as of this encounter Medical Devices Implanted Type Area Typer Device Identifier Shelf Expiration Date Model / Serial / Lot Mesh 3dmax 3.1x5.3in Rht Med - [id number] Implanted:Qty: 1 on 06/27/2022 by Damion Pearl MD at OR [facility] Right: Groin CR BARD : DAVOL 05/09/2026 [id number] / / [id number] documented as of this encounter Procedures Procedure Name Priority Date/Time Associated Diagnosis Comments INR FINGERSTICK, POINT OF CARE STAT 02/01/2024 10:34 AM EDT History of deep venous thrombosis Cerebral ischemia Anticoagulation management encounter documented in this encounter Results * INR FINGERSTICK, POINT OF CARE (02/01/2024 10:34 AM EDT) Fingerstick INR 1.4 INR 10:36 AM EDT LAB[facility] Blood 02/01/2024 10:3 4 AM EDT 02/01/2024 10:36 AM EDT Narrative [facility] - 02/01/2024 10:36 AM EDT Therapeutic ranges for non-operative patients: Prophylaxsis/treatment of DVT: (Range:2.0-3.0) Treatment of pulmonary embolism:(Range:2.0-3.0) Prevention of systemic embolism from: -tissue heart valves -acute myocardial infarction -valvular heart disease -atrial fibrillation (Range: 2.0-3.0) Mechanical prosthetic valves: (Range: 2.5-3.5) Yadi Bazan [facility] LAB POINT OF CARE TEST DOCKED DEVICE UNSOLICITED RESULTS [facility] [place], [place] [id number] documented in this encounter Visit Diagnoses Diagnosis Anticoagulation management encounter- Primary Encounter for therapeutic drug monitoring History of deep venous thrombosis Personal history of venous thrombosis and embolism Cerebral ischemia Other generalized ischemic cerebrovascular disease documented in this encounter Advance Directives * Full Code (Latest Code Status on File) Date Activated Date Inactivated Comments 06/27/2022 9:39 AM 06/27/2022 4:28 PM This order reflects the patients wishes and were consensually agreed upon. Question Answer Comments Discussion of Advance Directives occurred with: Patient * Full Code Date Activated Date Inactivated Comments 06/27/2022 9:33 AM 06/27/2022 9:39 AM This order reflects the patients wishes and were consensually agreed upon. Question Answer Comments Discussion of Advance Directives occurred with: Patient * Full Code Date Activated Date Inactivated Comments 11/13/2017 8:15 AM 11/13/2017 7:21 PM This order ref lects the patients wishes and were consensually agreed upon. * Full Code Date Activated Date Inactivated Comments 02/16/2009 6:11 AM 02/16/2009 1:58 PM This order ref lects the patients wishes and were consensually agreed upon. * Full Code Date Activated Date Inactivated Comments 11/10/2008 3:19 PM 11/12/2008 5:08 PM Care Teams Dietary Service Aide Relationship Specialty Start Date End Date Shawna Malhotra MD [address] [facility] [place] [address] PCP - General Internal Medicine 08/31/18 documented as of this encounter
--- OUTSIDE RECORDS SUMMARY | 2024-02-02 05:43 | External Medical Summary | Summary of Care ---
Author Name Unknown Organization [facility] Address [address] [place] [address] Phone [phone] Care Team Providers Care Oyster Grader Name Role Phone Shawna Malhotra MD Primary Care Provider + Reason for Visit * Reason Comments eRx-Medication Refill Encounter Details Date Type Department Care Team (Late st Contact Info) Description 01/20/2024 Refill General Internal Medicine [facility] [address] [place] [address] Shawna Malhotra MD [address] [place] [address] OA (osteoarthritis) Allergies Active Allergy Reactions Criticality Noted Date [...] containing Food (See Comments) Anaphylaxis High 11/16/2006 [place], kiwis and bananas Pantoprazole Sodium Hives,Other (Please comment) 01/21/2012 Hives, tinnitus and headache Famotidine 08/02/2019 acne Prednisone 10/20/2014 Rash, mood change Pseudoephedrine 04/09/2010 Sulfamethoxazole W/Trimethoprim (Co-Trimoxazole) 12/28/2002 dizzy Topamax Psych complications 05/19/2014 Deeper depression, suicidal ideation Topiramate 09/23/2021 Other reaction(s): Psych Complications Triptans 08/22/2004 Tramadol Hcl 05/26/2007 documented as of this encounter (statuses as of 01/21/2024) Medications Medication Sig Dispensed Refills Start Date End Date Status LANCETS MISCIndications:Hy poglycemia testing three times daily/251.2 3 Box 3 09/25/19 11 Active Additional Information Patient not taking.Reported on 11/11/2023 ONETOUCH ULTRASOFT LANCETS MISCIndications:Im paired fasting glucose Use up to four times a day as directed 1 Box 11 09/28/19 11 Active Additional Information Patient not taking.Reported on 11/11/2023 ONETOUCH ULTRA TEST STRPIndications:Im paired fasting glucose Use up to four times a day as directed 100 Strip 11 09/28/19 11 Active Additional Information Patient not taking.Reported on 11/11/2023 Probiotic Product (PROBIOTIC ACIDOPHILUS) Capsule Take by mouth 1 Capsule daily . Pt takes the granules 04/28/20 16 Active Cyanocobalamin (VITAMIN B-12) 2500 MCG Sublingual Tablet Take 1 Tablet by mouth in the morning. Active cyclobenzaprine (FLEXERIL) 10 MG Tablet 1 Tablet. two tablets at bedtime 03/08/20 18 Active LORazepam 0.5 MG Oral Tablet (Ativan)Indication s:CHATO (generalized anxiety disorder) One pill twice daily as needed 60 Tab 08/07/19 21 Active Vitamin C 125 MG Oral Tablet Chewable take 500mg daily 10/27/19 21 Active Tums Ultra 1000 1000 MG Oral Tablet Chewable (Calcium Carbonate Antacid) 2 chews three times daily 10/27/19 21 Active Vitamin A 3 MG (95836 UT) Oral Capsule (Aquasol-A) TAKE 1 CAPSULE BY MOUTH EVERY DAY 90 Cap 1 03/28/20 21 Active Meclizine HCl 25 MG Oral Tablet (Antivert)Indicati ons:Dizziness TAKE 1 TAB BY MOUTH 3 TIMES A DAY NEEDED FOR DIZZINESS. 30 Tab 5 04/04/20 21 Active Vitamin D3 125 MCG (5000 UT) Oral Capsule Take 2 daily. Dx E55.9 60 Cap 3 04/03/20 21 Active Multivitamin Adult Oral Tablet Chewable Take by mouth. Osteo multivit from [employer]. Active Albuterol Sulfate HFA 108 (90 Base) MCG/ACT Inhalation Aerosol Solution Inhale by mouth 2 Puffs in the morning AND 2 Puffs at noon AND 2 Puffs in the evening AND 2 Puffs before bedtime. 18 g 3 08/19/19 22 Active NATURAL SUPPLEMENT Take by mouth daily. Severo Melts- 1 tablet daily Active Biotin 26939 MCG Oral Tablet Take by mouth 2 Chip daily . Active Acetaminophen 500 MG Oral Tablet Take 1 Tablet by mouth every 6 hours as needed. Active Tylenol PM Extra Strength 500-25 MG Oral Tablet (diphenhydrAMINE-A PAP (sleep)) Take 1 Tablet by mouth 3 times a day as needed for Itching. Active Bisacodyl 10 MG Rectal Suppository (Dulcolax) One daily as needed for constipation 24 Suppository 1 08/21/19 23 Active Caltrate 600+D Plus Minerals 600-800 MG-UNIT Oral Tablet Chewable Take 2 Tablets by mouth in the morning. Active Magnesium 100 MG Oral Capsule Take 1 Capsule by mouth in the morning. Active Multivitamin Adult Oral Tablet Chewable Take 2 Units by mouth in the morning. Active Vitamin A 2400 MCG (8000 UT) Oral Capsule Take by mouth. Active Vitamin D3 25 MCG (1000 UT) Oral Capsule Take by mouth. Active diazePAM 2 MG Oral Tablet (Valium) 1-2 pills 30 to 45 min prior to MRI and do not drive after MRI. Watch for drowsiness or fall. 2 Tablet 03/30/20 23 Active Additional Information Patient not taking.Reported on 06/01/2023 Tamsulosin HCl 0.4 MG Oral Capsule (Flomax) Take 1 Capsule by mouth in the morning. 04/13/20 Active linaCLOtide 145 MCG Oral Capsule (Linzess) Take 1 Capsule by mouth daily before breakfast. 90 Capsule 3 06/03/20 23 Active Alendronate Sodium 70 MG Oral Tablet (Fosamax)Indicatio ns:Senile osteoporosis Take 1 Tablet by mouth once a week. with 8 oz. water 30 minutes before first meal of the day. Remain upright for 30 min after taking tablet. 5 Tablet 11 07/08/20 23 Active Warfarin Sodium 1 MG Oral Tablet (Coumadin)Indicati ons:Acute embolism and thrombosis of deep vein of lower extremity, unspecified laterality (HCC) TAKE 1 TO 2 TABLETS BY MOUTH DAILY INSTRUCTED BY [facility] Strength: 1 mg 180 Tablet 3 09/23/19 24 Active Fluticasone Propionate 50 MCG/ACT Nasal Suspension (Flonase)Indicatio ns:Chronic pansinusitis Administer 2 Sprays into each nostril in the morning. 16 g 2 09/23/19 24 Active Additional Information Patient not taking.Reported on 11/11/2023 Nystatin 037612 UNIT/GM External Powder (Nystop) Apply topically to affected area 3 times a day. Apply to abdominal fold as needed 60 g 10/08/19 Active EpiPen 2-Aramis 0.3 MG/0.3ML Injection Solution Auto-injectorIndic ations:Anaphylaxis ,Multiple allergies Inject 0.3 mg into large muscle. For multiple severe allergies. 1 Each 10/08/19 24 Active Levothyroxine Sodium 50 MCG Oral Tablet (Levoxyl)Indicatio ns:Acquired hypothyroidism TAKE 1 TABLET BY MOUTH EVERY DAY AT LEAST 30 MIN BEFORE BREAKFAST OR OTHER MEDICATION 90 Tablet 3 11/11/19 24 Active Citalopram Hydrobromide 20 MG Oral Tablet (CeleXA)Indication s:OA (osteoarthritis) TAKE 1 TABLET BY MOUTH EVERY DAY 90 Tablet 1 01/21/20 24 Active Citalopram Hydrobromide 20 MG Oral Tablet (CeleXA)Indication s:OA (osteoarthritis) TAKE 1 TABLET BY MOUTH EVERY DAY 90 Tablet 1 10/09/19 24 024 Discontinued documented as of this encounter (statuses as of 01/21/2024) Active Problems Problem Noted Date Diagnosed Date Hyperparathyroidism 11/11/2023 Age-related osteoporosis wit hout current pathological fracture 11/11/2023 Patient cannot afford medications 11/11/2023 Acute embolism and thrombosi s of deep vein of lower extremity 09/23/2023 Acute embolism and thrombosi s of deep vein of lower extremity 09/23/2023 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 Food insecurity 03/24/2022 Overview: Per [facility] Protocol Mallet finger of right hand [...] surgery syndrome 01/15/2009 Intestinal postoperative nonabsorption 9 [facility] current use of anticoagulant therapy 0 08/03/2003 Anticoagulation management encounter 01/11/2002 COMMON MIGRAINE WITHOUT MENTION OF INTRACTABLE M IGRAINE Gastroparesis Insomnia OA (osteoarthritis) documented as of this encounter (statuses as of 01/21/2024) Resolved Problems Problem Noted Date Diagnosed Date [...] as of this encounter (statuses as of 01/21/2024) Immunizations Name Administration Dates Next Due COVID-19, LNP-s, No Preserve , Rony-sucrose, Ages 12+ ([employer]) 08/22/2022 Covid-19, Mrna, Lnp-s, Pf, B ivalent, 30 Mcg, IM, 12 yrs and above (Pfizer) 06/19/2022 H1N1 2009 Influenza, IM 07/05/2009 Hepatitis B Vaccine, Recombi nant, Adjuvanted, 20 mcg/mL (Heplisav-B) 12/10/2022,11/06/2022 Pneumococcal Conjugate Vacci ne, 20-valent ([id number]) 11/06/2022 Pneumococcal Polysaccharide PPV23 (Pneumovax) 04/19/2009 Seasonal [...] on file documented as of this encounter Miscellaneous Notes * Telephone Encounter - Aquiles rOtiz RPh - 01/21/2024 10:05 AM EDTSigned Prescriptions: Disp Refills Citalopram Hydrobromide 20 MG Oral Tablet *90 Tab*1 Sig: TAKE 1 TABLET BY MOUTH EVERY DAYAuthorizing Provider: SHAWNA MALHOTRA User: AQUILES ORTIZ documented in this encounter Plan of Treatment Upcoming Encounters Date Type Department Care Team (Late st Contact Info) Description 02/01/2024 10:30 AM EDT [facility] [place] [address] [facility] [address] [facility] [address] [facility], [place] [address] 02/08/2024 3:00 PM EDT Office Visit Orthopaedics [facility] [address] [facility] [place] [address] Adonis James DO [address] [facility] [place] [address] 03/30/2024 11:20 AM EDT Office Visit Nutrition & [facility] Management, [facility] [place] [address] La Beltran PA-C [address] [place] [address] 03/30/2024 12:30 PM EDT Nutrition Services Nutrition & Weight Management, [facility] [address] [facility] [place] [address] Liliana Hernandez RDN [address] [place] [address] 05/25/2024 10:00 AM EST Office Visit General Internal Medicine [facility] [address] [place] [address] Shawna Malhotra MD [address] [place] [address] Scheduled Procedures Name Priority Associated Diagnoses Date/Ti me COLONOSCOPY FLEXIBLE PROXIMA L DIAGNOSTIC Recall Encounter for screening colonoscopy Health Maintenance Due Date Last Done Comments HPV/Co-Test 12/23/1995 Cologuard 2010 Fecal Occult Blood Test 2010 Sigmoidoscopy 2010 COVID-19 Vaccine (3 - 2023-24 season) 2023 08/22/2022, 06/19/2022 DTaP,Tdap,and Td Vaccines [...] D LEVEL ONCE IN A LIFETIME-USE SMARTSET# 43995 Completed 03/24/2023, 11/06/2022, 06/16/2022, Additional history exists HPV (Gardasil) Vaccine Aged Out No lo nger eligible based on patient's age to complete this topic MENINGOCOCCAL (MENACTRA/MENVEO) Aged Out No longer eligible based on patient's age to complete this topic documented as of this encounter Medical Devices Implanted Type Area Supervisor Blasting Device Identifier Shelf Expiration Date Model / Serial / Lot Mesh 3dmax 3.1x5.3in [facility] - [id number] Implanted:Qty: 1 on 06/27/2022 by Damion Pearl MD at OR [facility] Right: Glenn FERNÁNDEZ BARD : JELLY 05/09/2026 [id number] / / [id number] documented as of this encounter Visit Diagnoses Diagnosis OA (osteoarthritis) Osteoarthrosis, unspecified whether generalized or localized, unspecified site documented in this encounter Advance Directives * [...] 3:19 PM 11/12/2008 5:08 PM Care Teams Oyster Grader Relationship Specialty Start Date End Date Shawna Malhotra MD [address] [place] [address], [place] [address] PCP - General Internal Medicine 08/31/18 documented as of this encounter
--- OUTSIDE RECORDS SUMMARY | 2024-02-02 05:44 | External Medical Summary ---
Author Name Unknown Address Unknown Organization : Laboratory Report Ordering Provider Test Date Status RIZWAN RODRÍGUEZ 11/09/2023 10:49:32 Final Therapeutic ranges for non-o perative patients:
Prophylaxsis/treatment of DVT: (Range:2.0-3.0)
Treatment of pulmonary embolism:(Range:2.0-3.0)
Prevention of systemic embolism from:
-tissue heart valves
-acute myocardial infarction
-valvular heart disease
-atrial fibrillation
(Range: 2.0-3.0)
Mechanical prosthetic valves: (Range: 2.5-3.5) Observation Date Value Abnormality Reference (Units ) Status INR in Capillary blood by Coagulation assay 11/09/2023 10:49:32 1.5 (INR) Final Performing Location
--- OUTSIDE RECORDS SUMMARY | 2024-02-02 05:44 | External Medical Summary | Summary of Care ---
Author Name Unknown Organization [facility] Address [address] [place] [address] Phone [phone] Care Team Providers Care It Network Architect Name Role Phone Shawna Malhotra MD Primary Care Provider + Reason for Visit * Reason Comments Dosage Adjustment In Person (Anticoag Cl inic) Encounter Details Date Type Department Care Team (Latest Contact Info) Description 12/09/2023 10:50 AM EDT Anticoagulation Pharmacy, [place] [address] [place] [address] [facility] [address] [place] [address] Anticoagulation management encounter*; History of deep venous [...] containing Food (See Comments) Anaphylaxis High 11/16/2006 [place], kiwis and bananas Pantoprazole Sodium Hives,Other (Please comment) 01/21/2012 Hives, tinnitus and headache Famotidine 08/02/2019 acne Prednisone 10/20/2014 Rash, mood change Pseudoephedrine 04/09/2010 Sulfamethoxazole W/Trimethoprim (Co-Trimoxazole) 12/28/2002 dizzy Topamax Psych complications 05/19/2014 Deeper depression, suicidal ideation Topiramate 09/23/2021 Other reaction(s): Psych Complications Triptans 08/22/2004 Tramadol Hcl 05/26/2007 documented as of this encounter (statuses as of 12/09/2023) Medications Medication Sig Dispensed Refills Start Date End Date Status LANCETS MISCIndications:Hyp oglycemia testing three times daily/251.2 3 Box 3 09/24/2010 Active Additional Information Patient not taking.Reported on 11/11/2023 ONETOUCH ULTRASOFT LANCETS MISCIndications:Imp aired fasting glucose Use up to four times a day as directed 1 Box 11 09/27/2010 Active Additional Information Patient not taking.Reported on 11/11/2023 ONETOUCH ULTRA TEST STRPIndications:Imp aired fasting glucose Use up to four times a day as directed 100 Strip 11 09/27/2010 Active Additional Information Patient not taking.Reported on [...] daily 10/26/2020 Active Vitamin A 3 MG (56820 UT) Oral Capsule (Aquasol-A) TAKE 1 CAPSULE [...] Chewable Take by mouth. Osteo multivit from [employer]. Active Albuterol Sulfate HFA 108 (90 Base) MCG/ACT Inhalation Aerosol Solution Inhale by mouth 2 Puffs in the morning AND 2 Puffs at noon AND 2 Puffs in the evening AND 2 Puffs before bedtime. 18 g 3 08/19/2021 Active NATURAL SUPPLEMENT Take by mouth daily. Severo Melts- 1 tablet daily Active Biotin 35368 MCG Oral Tablet Take by mouth 2 [...] Watch for drowsiness or fall. 2 Tablet 03/30/2023 Active Additional Information Patient not taking.Reported on [...] 1 mg 180 Tablet 3 09/23/2023 Active Fluticasone Propionate 50 MCG/ACT Nasal Suspension (Flonase)Indication s:Chronic pansinusitis Administer 2 Sprays into each nostril in the morning. 16 g 2 09/23/2023 Active Additional Information Patient not taking.Reported on 11/11/2023 Nystatin 756100 UNIT/GM External Powder (Nystop) Apply topically to affected area 3 times a day. Apply to abdominal fold as needed 60 g 5 10/08/2023 Active EpiPen 2-Aramis 0.3 MG/0.3ML Injection Solution Auto-injectorIndica tions:Anaphylaxis,M ultiple allergies Inject 0.3 mg into large muscle. For multiple severe allergies. 1 Each 5 10/08/2023 Active Citalopram Hydrobromide 20 MG Oral Tablet (CeleXA)Indications :OA (osteoarthritis) TAKE 1 TABLET BY MOUTH EVERY DAY 90 Tablet 1 10/09/2023 Active Levothyroxine Sodium 50 MCG Oral Tablet (Levoxyl)Indication s:Acquired hypothyroidism TAKE 1 TABLET BY MOUTH EVERY DAY AT LEAST 30 MIN BEFORE BREAKFAST OR OTHER MEDICATION 90 Tablet 3 11/11/2023 Active Hospital, Clinic, or Other Facility Administered Medication Ordered Dose Route Frequency Start Date End Date Status vitamin b-12 (Cyanocobalamin) inj 1,000 mcgIndications:B12 deficiency 1000 mcg IM [id number] 04/16/2021 01/19/2024 Active documented as of this encounter (statuses as of 12/09/2023) Active Problems Problem Noted Date Diagnosed Date Hyperparathyroidism 11/11/2023 Age-related osteoporosis wit hout current pathological fracture 11/11/2023 Patient cannot afford medications 11/11/2023 Acute embolism and thrombosi s of deep vein of lower extremity 09/23/2023 Acute embolism and thrombosi s of deep vein of lower extremity 09/23/2023 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 Food insecurity 03/24/2022 Overview: Per [facility] Protocol Mallet finger of right [...] surgery syndrome 01/15/2009 Intestinal postoperative nonabsorption 9 [facility] current use of anticoagulant therapy 0 08/03/2003 Anticoagulation management encounter 01/11/2002 COMMON MIGRAINE WITHOUT MENTION OF INTRACTABLE M IGRAINE Gastroparesis Insomnia OA (osteoarthritis) documented as of this encounter (statuses as of 12/09/2023) Resolved Problems Problem Noted Date Diagnosed Date [...] as of this encounter (statuses as of 12/09/2023) Immunizations Name Administration Dates Next Due COVID-19, LNP-s, No Preserve , Rony-sucrose, Ages 12+ (Pfizer) 08/22/2022 Covid-19, Mrna, Lnp-s, Pf, B ivalent, 30 Mcg, IM, 12 yrs and above (Pfizer) 06/19/2022 H1N1 2009 Influenza, IM 07/05/2009 Hepatitis B Vaccine, Recombi nant, Adjuvanted, 20 mcg/mL (Heplisav-B) 12/10/2022,11/06/2022 Pneumococcal Conjugate Vacci ne, 20-valent ([id number]) 11/06/2022 Pneumococcal Polysaccharide PPV23 (Pneumovax) 04/19/2009 Seasonal Influenza, PF, 6 M & above, IM , (FluLaval or Fluzone) 04/21/2023,04/24/2022,04/16/2021,04/24,04/05/2019,03/19/2018,04/07/2017 Seasonal Influenza, Quadriva lent, No Preserve, IM 05/01/2016,04/09/2015 Seasonal Influenza, Split, I IV3, With Preserve, Inj 04/09/2015,05/26/2014,04/01/2013,06/07,04/01/2011,04/16/2010,04/19/2009 ,04/27/2008,05/25/2007,06/09/2006 TDAP (age 10 and older)(Boostrix) 02/05/2014, TDAP (age 11 and older)(Adacel) 02/05/2014,01/27 Zoster Vaccine Recombinant (Shingrix) 05/02/2020 ,02/27/2020,03/19/2018 documented [...] have money to get more. Often true Sex and Gender Information Value Date Recorded Sex Assigned at Female 04/05/2019 11:50 AM EDT Gender Identity Female 04/05/2019 11:50 AM EDT Sexual Orientation Straight 04/05/2019 11 :50 AM EDT Job Start Date Occupation Industry Not on file Not on file Not on file documented as of this encounter Progress Notes * Yadi Bazan RPh - 12/09/2023 10:42 AM EDT Images from the original note were not included. Medication Therapy Disease Management - Anticoagulation Patient: Carolee Colón Charisma | : 1965 Subjective Patient-Reported Symptoms: Patient Findings Negatives: Signs/symptoms of thrombosis, Signs/symptoms of bleeding, Change in health, Change in alcohol use, Change in activity, Upcoming invasive procedure, Missed doses, Extra doses, Change in medications, Change in diet/appetite, Bruising Objective Current Warfarin Dose As of 12/09/2023 Warfarin maintenance plan: 1 mg (1 mg x 1) every day INR Result As of 12/09/2023 INR goal: 1.8-2.5 INR used for dosin.4 (12/09/2023) Assessment & Plan Warfarin Plan As of 12/09/2023 Full warfarin instructions: 2 mg every Wed; 1 mg all other days Next INR check: 01/04/2024 Repeat PT/INR in 4 week(s) Weekly dose: increased Additional Dosing Information: Yadi Bazan RPh Clinical Pharmacist 12/09/2023, 10:43 AM documented in this encounter Plan of Treatment Upcoming Encounters Date Type Department Care Team (Late st Contact Info) Description 01/04/2024 10:50 AM EDT Anticoagulation Pharmacy, [place] [address] [place] [address] [place] [address] [place] [address] 03/30/2024 11:20 AM EDT Office Visit Nutrition & Weight Management, [facility] [place] [address] La Beltran PA-C [address] [place] [address] 03/30/2024 12:30 PM EDT Nutrition Services Nutrition & Weight Management, [facility] [address] [facility] [place] [address] Liliana Hernandez RDN [address] [facility] [place] [address] 05/25/2024 10:00 AM EST Office Visit General Internal Medicine [facility] [address] [facility] [place] [address] Shawna Malhotra MD [address] [facility] [place] [address] Scheduled Procedures Name Priority Associated Diagnoses Date/Ti me COLONOSCOPY FLEXIBLE PROXIMA L DIAGNOSTIC Recall Encounter for screening colonoscopy Health Maintenance Due Date Last Done Comments HPV/Co-Test 12/23/1995 Cologuard 2010 Fecal Occult Blood Test 2010 Sigmoidoscopy 2010 COVID-19 Vaccine ( season) 2023 08/22/2022, 06/19/2022 Depression, Most Recent Score >= 10 (will fire each visit until score < 10) 04/22/2023 04/21/2023 TSH 06/16/2023 06/16/2022, 10/12, 11/12/2020, Additional history exists DTaP,Tdap,and Td Vaccines (5 - Td or Tdap) 02/06/2024 02/05/2014, 02/05/2014, 01/28/2008, Additional history exists Mammogram 10/21/2024 10/22/2023, 10/11, 10/20/2022, Additional history exists DXA Scan 03/12/2025 03/12/2023, 02/12, 07/23/2020 Cervical Cancer Screening 04/09/2025 Pap Smear 04/09/2025 04/09/2022, 06/13, 04/02/2015, Additional history exists Diabetes Screening 03/24/2026 03/24/2023, 0 03/24/2023, 11/14/2022, Additional history exists Colonoscopy 06/12/2026 06/12/2016, 07/2015, 07/29/2004, Additional history exists Colorectal Cancer Screening 06/12/2026 Zoster Vaccines Completed 05/02/2020, 02/10, 03/19/2018 Pneumococcal Vaccine: Pediatrics (0 to 5 Years) and At-Risk Patients (6 to 64 Years) Completed 11/06/2022, 04/19/2009 Hepatitis B Completed 12/10/2022, 11/06/2022 VITAMIN D LEVEL ONCE IN A LIFETIME-USE SMARTSET# [id number] Completed 03/24/2023, 11/06/2022, 06/16/2022, Additional history exists Influenza Vaccine (FLU shot) Completed 04/2023, 04/24/2022, 04/16/2021, Additional history exists GARDASIL-HPV IMMUNIZATION SERIES Aged Out No longer eligible based on patient's age to complete this topic MENINGOCOCCAL (MENACTRA/MENVEO) Aged Out No longer eligible based on patient's age to complete this topic documented as of this encounter Medical Devices Implanted Type Area Supervisor Denture Department Device Identifier Shelf Expiration Date Model / Serial / Lot Mesh 3dmax 3.1x5.3in [facility] - [id number] Implanted:Qty: 1 on 06/27/2022 by Damion Pearl MD at OR [facility] Right: Groin CR BARD : DAVOL 05/09/2026 [id number] / / [id number] documented as of this encounter Procedures Procedure Name Priority Date/Time Associated Diagnosis Comments INR FINGERSTICK, POINT OF CARE STAT 12/09/2023 10:53 AM EDT History of deep venous thrombosis Cerebral ischemia Anticoagulation management encounter documented in this encounter Results * INR FINGERSTICK, POINT OF CARE (12/09/2023 10:53 AM EDT) Fingerstick INR 1.4 INR 10:55 AM EDT [facility]- Blood 12/09/2023 10:5 3 AM EDT 12/09/2023 10:55 AM EDT Narrative [facility]- - 12/09/2023 10:55 AM EDT Therapeutic ranges for non-operative patients: Prophylaxsis/treatment of DVT: (Range:2.0-3.0) Treatment of pulmonary embolism:(Range:2.0-3.0) Prevention of systemic embolism from: -tissue heart valves -acute myocardial infarction -valvular heart disease -atrial fibrillation (Range: 2.0-3.0) Mechanical prosthetic valves: (Range: 2.5-3.5) Yadi Bazan formerly [facility] POINT OF CARE TEST DOCKED DEVICE UNSOLICITED RESULTS [facility] - [address] [place] [address] documented in this encounter Visit Diagnoses Diagnosis [...] 3:19 PM 11/12/2008 5:08 PM Care Teams It Network Architect Relationship Specialty Start Date End Date Shawna Malhotra MD [address] [place] [address] PCP - General Internal Medicine 08/31/18 documented as of this encounter
--- OUTSIDE RECORDS SUMMARY | 2024-02-02 05:44 | External Medical Summary | Summary of Care ---
Author Name Unknown Organization [facility] Address [address] [place] [address] Phone [phone] Care Team Providers Care Mgmt Analyst Name Role Phone Shawna Malhotra MD Primary Care Provider + Reason for Visit * Reason Comments Appointment Encounter Details Date Type Department Care Team (Latest Contact Info) Description 11/04/2023 6:10 PM EDT Anticoagulation Pharmacy, [address] [address] [facility] [address] [place] [address] Anticoagulation management encounter* Allergies Active Allergy Reactions Criticality Noted Date [...] containing Food (See Comments) Anaphylaxis High 11/16/2006 Ingraham, kiwis and bananas Pantoprazole Sodium Hives,Other (Please comment) 01/21/2012 Hives, tinnitus and headache Famotidine 08/02/2019 acne Prednisone 10/20/2014 Rash, mood change Pseudoephedrine 04/09/2010 Sulfamethoxazole W/Trimethoprim (Co-Trimoxazole) 12/28/2002 dizzy Topamax Psych complications 05/19/2014 Deeper depression, suicidal ideation Topiramate 09/23/2021 Other reaction(s): Psych Complications Triptans 08/22/2004 Tramadol Hcl 05/26/2007 documented as of this encounter (statuses as of 11/04/2023) Medications Medication Sig Dispensed Refills Start Date End Date Status LANCETS MISCIndications:Hy poglycemia testing three times daily/251.2 3 Box 3 09/24/2010 Active ONETOUCH ULTRASOFT LANCETS MISCIndications:Im paired fasting glucose Use up to four times a day as directed 1 Box 11 09/27/2010 Active ONETOUCH ULTRA TEST STRPIndications:Im paired fasting glucose Use up to four times a day as directed 100 Strip 11 09/27/2010 Active Probiotic Product (PROBIOTIC ACIDOPHILUS) Capsule Take by mouth 1 Capsule daily . Pt takes the granules 0 04/28/2016 Active Cyanocobalamin (VITAMIN B-12) 2500 MCG Sublingual Tablet Take 1 Tablet by mouth in the morning. 0 Active cyclobenzaprine (FLEXERIL) 10 MG Tablet 1 Tablet. two tablets at bedtime 0 03/08/2018 Active LORazepam 0.5 MG Oral Tablet (Ativan)Indication s:CHATO (generalized anxiety disorder) One pill twice daily as needed 60 Tab 0 08/07/2020 Active Vitamin C 125 MG Oral Tablet Chewable take 500mg daily 0 10/26/2020 Active Tums Ultra 1000 1000 MG Oral Tablet Chewable (Calcium Carbonate Antacid) 2 chews three times daily 0 10/26/2020 Active Vitamin A 3 MG (86144 UT) Oral Capsule (Aquasol-A) TAKE 1 CAPSULE [...] Chewable Take by mouth. Osteo multivit from [employer]. 0 Active Albuterol Sulfate HFA 108 (90 Base) MCG/ACT Inhalation Aerosol Solution Inhale by mouth 2 Puffs in the morning AND 2 Puffs at noon AND 2 Puffs in the evening AND 2 Puffs before bedtime. 18 g 3 08/19/2021 Active NATURAL SUPPLEMENT Take by mouth daily. Severo Melts- 1 tablet daily 0 Active Biotin 37047 MCG Oral Tablet Take by mouth 2 Chip daily . 0 Active Acetaminophen 500 MG Oral Tablet Take 1 Tablet by mouth every 6 hours as needed. 0 Active Tylenol PM Extra Strength 500-25 MG Oral Tablet (diphenhydrAMINE-A PAP (sleep)) Take 1 Tablet by mouth 3 times a day as needed for Itching. 0 Active Bisacodyl 10 MG Rectal Suppository (Dulcolax) One daily as needed for constipation 24 Suppository 1 08/21/2022 Active Caltrate 600+D Plus Minerals 600-800 MG-UNIT Oral Tablet Chewable Take 2 Tablets by mouth in the morning. 0 Active Magnesium 100 MG Oral Capsule Take 1 Capsule by mouth in the morning. 0 Active Multivitamin Adult Oral Tablet Chewable Take 2 Units by mouth in the morning. 0 Active Vitamin A 2400 MCG (8000 UT) Oral Capsule Take by mouth. 0 Active Vitamin D3 25 MCG (1000 UT) Oral Capsule Take by mouth. 0 Active diazePAM 2 MG Oral Tablet (Valium) 1-2 pills 30 to 45 min prior to MRI and do not drive after MRI. Watch for drowsiness or fall. 2 Tablet 0 03/30/2023 Active Additional Information Patient not taking.Reported on 06/01/2023 Tamsulosin HCl 0.4 MG Oral Capsule (Flomax) Take 1 Capsule by mouth in the morning. 0 04/13/2023 Active linaCLOtide 145 MCG Oral Capsule (Linzess) Take 1 Capsule by mouth daily before breakfast. 90 Capsule 3 06/03/2023 Active Alendronate Sodium 70 MG Oral Tablet (Fosamax)Indicatio ns:Senile osteoporosis Take 1 Tablet by mouth once a week. with 8 oz. water 30 minutes before first meal of the day. Remain upright for 30 min after taking tablet. 5 Tablet 11 07/08/2023 Active Levothyroxine Sodium 50 MCG Oral Tablet (Levoxyl)Indicatio ns:Hypothyroidism TAKE 1 TABLET BY MOUTH EVERY DAY AT LEAST 30 MIN BEFORE BREAKFAST OR OTHER MEDICATION 90 Tablet 0 08/20/2023 Active Warfarin Sodium 1 MG Oral Tablet [...] the morning. 16 g 2 09/23/2023 Active Nystatin 700966 UNIT/GM External Powder (Nystop) Apply topically to [...] EVERY DAY 90 Tablet 1 10/09/2023 Active Hospital, Clinic, or Other Facility Administered Medication Ordered Dose Route Frequency Start Date End Date Status vitamin b-12 (Cyanocobalamin) inj 1,000 mcgIndications:B12 deficiency 1000 mcg IM [id number] 04/16/2021 01/19/2024 Active documented as of this encounter (statuses as of 11/04/2023) Active Problems Problem Noted Date Diagnosed Date Acute embolism and thrombosi s of deep [...] surgery syndrome 01/15/2009 Intestinal postoperative nonabsorption 9 senior care current use of anticoagulant therapy 0 08/03/2003 Anticoagulation management encounter 01/11/2002 COMMON MIGRAINE WITHOUT MENTION OF INTRACTABLE M IGRAINE Gastroparesis Insomnia OA (osteoarthritis) documented as of this encounter (statuses as of 11/04/2023) Resolved Problems Problem Noted Date Diagnosed Date [...] as of this encounter (statuses as of 11/04/2023) Immunizations Name Administration Dates Next Due COVID-19, LNP-s, No Preserve , Rony-sucrose, Ages 12+ (Pfizer) 08/22/2022 Covid-19, Mrna, Lnp-s, Pf, B ivalent, 30 Mcg, IM, 12 yrs and above (Pfizer) 06/19/2022 H1N1 2009 Influenza, IM 07/05/2009 Hepatitis B Vaccine, Recombi nant, Adjuvanted, 20 mcg/mL (Heplisav-B) 12/10/2022,11/06/2022 Pneumococcal Conjugate Vacci ne, 20-valent ([id number]) 11/06/2022 Pneumococcal Polysaccharide PPV23 (Pneumovax) 04/19/2009 Seasonal [...] as of this encounter Progress Notes * Lynn Hodges PHARM Tech - 11/04/2023 8:56 AM EDT Patient Phone Numbers Spoke with patient to schedule [facility] appointment for coag management. Appointment scheduled as notedbelow. 11/09/2023 Thank you, Lynn Hodges Mop Worker [facility] 11/04/2023,8:56 AM documented in this encounter Plan of Treatment Upcoming Encounters Date Type Department Care Team (Late st Contact Info) Description 11/09/2023 11:10 AM EDT Anticoagulation Pharmacy, [place] [address] [place] [address] [facility] [address] [place] [address] 11/11/2023 10:40 AM EDT Office Visit General Internal Medicine [facility] [address] [place] [address] Shawna Malhotra MD [address] [place] [id number] 03/30/2024 11:20 AM EDT Office Visit Nutrition & Weight Management, [facility] [address] [address] La Beltran PA-C [address] [address] 03/30/2024 12:30 PM EDT Nutrition Services Nutrition & Weight Management, [facility] [address] [address] Liliana Hernandez RDN [address] [address] Scheduled Procedures Name Priority Associated Diagnoses Date/Ti [...] 10/21/2024 10/22/2023, 10/11, 10/20/2022, Additional history exists Cervical Cancer Screening 04/09/2025 Pap Smear 04/09/2025 04/09/2022, 06/13, 04/02/2015, Additional history exists Diabetes Screening 03/24/2026 03/24/2023, 0 03/24/2023, 11/14/2022, Additional history exists Colonoscopy 06/12/2026 06/12/2016, 07/2015, 07/29/2004, Additional history exists Colorectal Cancer Screening 06/12/2026 Zoster Vaccines Completed 05/02/2020, 02/10, 03/19/2018 Pneumococcal Vaccine: Pediatrics (0 to 5 Years) and At-Risk Patients (6 to 64 Years) Completed 11/06/2022, 04/19/2009 Hepatitis B Completed 12/10/2022, 11/06/2022 Influenza Vaccine (FLU shot) Completed 04/2023, 04/24/2022, 04/16/2021, Additional history exists GARDASIL-HPV IMMUNIZATION SERIES Aged Out No longer eligible based on patient's age to complete this topic MENINGOCOCCAL (MENACTRA/MENVEO) Aged Out No longer eligible based on patient's age to complete this topic documented as of this encounter Medical Devices Implanted Type Area Coremaker Apprentice Device Identifier Shelf Expiration Date Model / Serial / Lot Mesh 3dmax 3.1x5.3in Rht Med - [id number] Implanted:Qty: 1 on 06/27/2022 by Damion Pearl MD at OR [facility] Right: Groin CR BARD : DAVOL 05/09/2026 [id number] / / [id number] documented as of this encounter Visit Diagnoses Diagnosis Anticoagulation management encounter- Primary Encounter for therapeutic drug monitoring documented in this encounter Advance Directives Latest Code Status on File Code Status Date Activated Date Inactivated Comments Full Code 06/27/2022 9:39 AM 06/27/2022 4:28 PM Thi s order reflects the patients wishes and were consensually agreed upon. Question Answer Comments Discussion of Advance Directives occurred with: Patient Code Status History Code Status Date Activated Date Inactivated Comments Full Code 06/27/2022 9:33 AM 06/27/2022 9:39 AM Thi s order reflects the patients wishes and were consensually agreed upon. Question Answer Comments Discussion of Advance Directives occurred with: Patient Full Code 11/13/2017 8:15 AM 11/13/2017 7:21 PM This or salomon reflects the patients wishes and were consensually agreed upon. Full Code 02/16/2009 6:11 AM 02/16/2009 1:58 PM This or salomon reflects the patients wishes and were consensually agreed upon. Full Code 11/10/2008 3:19 PM 11/12/2008 5:08 PM Care Teams Mgmt Analyst Relationship Specialty Start Date End Date Shawna Malhotra MD [address] [facility] [place] [address] PCP - General Internal Medicine 08/31/18 documented as of this encounter
--- OUTSIDE RECORDS SUMMARY | 2024-02-02 05:44 | External Medical Summary | Summary of Care ---
Author Name Unknown Organization [facility] Address [address] [place] [address] Phone [phone] Care Team Providers Care Manager Project Management Name Role Phone Shawna Malhotra MD Primary Care Provider + Reason for Visit * Reason Comments Follow Up 6 month return. Pt d enied any new concerns Encounter Details Date Type Department Care Team (Latest Contact Info) Description 11/11/2023 10:40 AM EDT Office Visit General Internal Medicine [facility] [address] [place] [address] Shawna Malhotra MD [address] [place] [address] Polyneuropathy in other diseases classified elsewhere (HCC)*; Acquired hypothyroidism; Hyperparathyroidism (HCC); Age-related osteoporosis without current pathological fracture; Major depressive disorder, recurrent, moderate (HCC) Allergies Active Allergy Reactions Criticality Noted Date [...] containing Food (See Comments) Anaphylaxis High 11/16/2006 [place], kiwis and bananas Pantoprazole Sodium Hives,Other (Please comment) 01/21/2012 Hives, tinnitus and headache Famotidine 08/02/2019 acne Prednisone 10/20/2014 Rash, mood change Pseudoephedrine 04/09/2010 Sulfamethoxazole W/Trimethoprim (Co-Trimoxazole) 12/28/2002 dizzy Topamax Psych complications 05/19/2014 Deeper depression, suicidal ideation Topiramate 09/23/2021 Other reaction(s): Psych Complications Triptans 08/22/2004 Tramadol Hcl 05/26/2007 documented as of this encounter (statuses as of 11/11/2023) Medications Medication Sig Dispensed Refills Start Date End Date Status LANCETS MISCIndications:Hyp oglycemia testing three times daily/251.2 3 Box 3 1 Active Additional Information Patient not taking.Reported on 11/11/2023 ONETOUCH ULTRASOFT LANCETS MISCIndications:Imp aired fasting glucose Use up to four times a day as directed 1 Box 11 1 Active Additional Information Patient not taking.Reported on 11/11/2023 ONETOUCH ULTRA TEST STRPIndications:Imp aired fasting glucose Use up to four times a day as directed 100 Strip 11 1 Active Additional Information Patient not taking.Reported on 11/11/2023 Probiotic Product (PROBIOTIC ACIDOPHILUS) Capsule Take by mouth 1 Capsule daily . Pt takes the granules 0 6 Active Cyanocobalamin (VITAMIN B-12) 2500 MCG Sublingual Tablet Take 1 Tablet by mouth in the morning. 0 Active cyclobenzaprine (FLEXERIL) 10 MG Tablet 1 Tablet. two tablets at bedtime 0 8 Active LORazepam 0.5 MG Oral Tablet (Ativan)Indications :CHATO (generalized anxiety disorder) One pill twice daily as needed 60 Tab 0 1 Active Vitamin C 125 MG Oral Tablet Chewable take 500mg daily 0 1 Active Tums Ultra 1000 1000 MG Oral Tablet Chewable (Calcium Carbonate Antacid) 2 chews three times daily 0 1 Active Vitamin A 3 MG (24023 UT) Oral Capsule (Aquasol-A) TAKE 1 CAPSULE BY MOUTH EVERY DAY 90 Cap 1 1 Active Meclizine HCl 25 MG Oral Tablet (Antivert)Indicatio ns:Dizziness TAKE 1 TAB BY MOUTH 3 TIMES A DAY NEEDED FOR DIZZINESS. 30 Tab 5 1 Active Vitamin D3 125 MCG (5000 UT) Oral Capsule Take 2 daily. Dx E55.9 60 Cap 3 1 Active Multivitamin Adult Oral Tablet Chewable Take by mouth. Osteo multivit from [employer]. 0 Active Albuterol Sulfate HFA 108 (90 Base) MCG/ACT Inhalation Aerosol Solution Inhale by mouth 2 Puffs in the morning AND 2 Puffs at noon AND 2 Puffs in the evening AND 2 Puffs before bedtime. 18 g 3 2 Active NATURAL SUPPLEMENT Take by mouth daily. Severo Melts- 1 tablet daily 0 Active Biotin 68127 MCG Oral Tablet Take by mouth 2 [...] as needed for constipation 24 Suppository 1 3 Active Caltrate 600+D Plus Minerals 600-800 MG-UNIT [...] for drowsiness or fall. 2 Tablet 0 3 Active Additional Information Patient not taking.Reported on 06/01/2023 Tamsulosin HCl 0.4 MG Oral Capsule (Flomax) Take 1 Capsule by mouth in the morning. 0 3 Active linaCLOtide 145 MCG Oral Capsule (Linzess) Take 1 Capsule by mouth daily before breakfast. 90 Capsule 3 3 Active Alendronate Sodium 70 MG Oral Tablet (Fosamax)Indication s:Senile osteoporosis Take 1 Tablet by mouth once a week. with 8 oz. water 30 minutes before first meal of the day. Remain upright for 30 min after taking tablet. 5 Tablet 11 3 Active Warfarin Sodium 1 MG Oral Tablet (Coumadin)Indicatio ns:Acute embolism and thrombosis of deep vein of lower extremity, unspecified laterality (HCC) TAKE 1 TO 2 TABLETS BY MOUTH DAILY INSTRUCTED BY [facility] Strength: 1 mg 180 Tablet 3 4 Active Fluticasone Propionate 50 MCG/ACT Nasal Suspension (Flonase)Indication s:Chronic pansinusitis Administer 2 Sprays into each nostril in the morning. 16 g 2 4 Active Additional Information Patient not taking.Reported on 11/11/2023 Nystatin 039752 UNIT/GM External Powder (Nystop) Apply topically to affected area 3 times a day. Apply to abdominal fold as needed 60 g 5 4 Active EpiPen 2-Aramis 0.3 MG/0.3ML Injection Solution Auto-injectorIndica tions:Anaphylaxis,M ultiple allergies Inject 0.3 mg into large muscle. For multiple severe allergies. 1 Each 5 4 Active Citalopram Hydrobromide 20 MG Oral Tablet (CeleXA)Indications :OA (osteoarthritis) TAKE 1 TABLET BY MOUTH EVERY DAY 90 Tablet 1 4 Active Levothyroxine Sodium 50 MCG Oral Tablet (Levoxyl)Indication s:Acquired hypothyroidism TAKE 1 TABLET BY MOUTH EVERY DAY AT LEAST 30 MIN BEFORE BREAKFAST OR OTHER MEDICATION 90 Tablet 3 4 Active Levothyroxine Sodium 50 MCG Oral Tablet (Levoxyl)Indication s:Hypothyroidism TAKE 1 TABLET BY MOUTH EVERY DAY AT LEAST 30 MIN BEFORE BREAKFAST OR OTHER MEDICATION 90 Tablet 0 4 11/11/19 24 Discontinu ed(Refill) Hospital, Clinic, or Other Facility Administered Medication Ordered Dose Route Frequency Start Date End Date Status vitamin b-12 (Cyanocobalamin) inj 1,000 mcgIndications:B12 deficiency 1000 mcg IM [id number] 04/16/2021 01/19/2024 Active documented as of this encounter (statuses as of 11/11/2023) Active Problems Problem Noted Date Diagnosed Date Hyperparathyroidism 11/11/2023 Age-related osteoporosis wit hout current pathological fracture 11/11/2023 Patient cannot afford medications 11/11/2023 Acute embolism and thrombosi s of deep vein of lower extremity 09/23/2023 Acute embolism and thrombosi s of deep vein of lower extremity 09/23/2023 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 Food insecurity 03/24/2022 Overview: Per [facility] Protocol Mallet finger of right hand [...] surgery syndrome 01/15/2009 Intestinal postoperative nonabsorption 9 [facility]FP current use of anticoagulant therapy 0 08/03/2003 Anticoagulation management encounter 01/11/2002 COMMON MIGRAINE WITHOUT MENTION OF INTRACTABLE M IGRAINE Gastroparesis Insomnia OA (osteoarthritis) documented as of this encounter (statuses as of 11/11/2023) Resolved Problems Problem Noted Date Diagnosed Date [...] twice per week 06/12/2003 08/23/2013 OBESITY, UNSPECIFIED 03/29/2 010 Overview: Per Obesity Taxonomy Constipation 01/06/2017 Intervertebral disc prolapse 11/04/2016 Venous thrombosis 04/13/2017 Reflux esophagitis Overview: More specific diagnosis Vertigo 01/06/2017 documented as of this encounter (statuses as of 11/11/2023) Immunizations Name Administration Dates Next Due COVID-19, LNP-s, No Preserve , Rony-sucrose, Ages 12+ (Pfizer) 08/22/2022 Covid-19, Mrna, Lnp-s, Pf, B ivalent, 30 Mcg, IM, 12 yrs and above (Pfizer) 06/19/2022 H1N1 2009 Influenza, IM 07/05/2009 Hepatitis B Vaccine, Recombi nant, Adjuvanted, 20 mcg/mL (Heplisav-B) 12/10/2022,11/06/2022 Pneumococcal Conjugate Vacci ne, 20-valent ([id number]) 11/06/2022 Pneumococcal Polysaccharide PPV23 (Pneumovax) 04/19/2009 Seasonal [...] Date Smoking Tobacco: Never Smokeless Tobacco: Never Tobacco Cessation:Counseling Given: Not Answered Comments:Passive smoke exposure while Pt is currently Alcohol Use Standard [...] on file documented as of this encounter Last Filed Vital Signs Vital Sign Reading Time Taken Comments Blood Pressure 106/62 11/11/2023 10:45 AM EDT Pulse 85 11/11/2023 10:45 AM EDT Temperature 36.5 C (97.7 F) 11/11/2023 10:45 AM E DT Respiratory Rate - - Oxygen Saturation 96% 11/11/2023 10:45 AM EDT Inhaled Oxygen Concentration - - Weight 97.1 kg (214 lb 1.6 oz) 11/11/2023 10:45 AM EDT Height 170.2 cm (5' 7") 11/11/2023 10:45 AM EDT Body Mass Index 33.53 11/11/2023 10:45 AM EDT documented in this encounter Progress Notes * Shawna Malhotra MD - 11/11/2023 11:25 AM EDT HPI: Carolee Zafar is a 57 year old female with hx of DVT, On warfarin, obesity, polyneuropathy,hypothyroidism, Hyperparathyroidism who presents with: Chief Complaint Patient presents with Follow Up 6 month return. Pt denied any new concerns Patient is here for the recheck. Chart reviewed with the patient including current meds, last labs and HM. No acute event since we saw patient last time including no recent fall or injuries. Recently was seen for sinusitis and received Flonase, amoxicillin. denies any cough/sob/wheezing/chestpain. States she takes care of her grand daughter and gets URTI, allergies etc. Discussed diet, hydration. Feels fine emotionally. Rt hip pain is much better since got cortisol shot in 07/2023. Sees Dr. Rodriguez and endocrine regulalry. 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 GERD (gastroesophageal reflux disease) K21.9 Insomnia G47.00 OA (osteoarthritis) M19.90 Hypoglycemia E16.2 History of deep venous thrombosis Z86.718 Major depressive disorder, recurrent, moderate (HCC) F33.1 Polyneuropathy in other diseases classified elsewhere ([facility]) G63 Cerebral ischemia I67.82 Unspecified asthma, uncomplicated J45.909 Acquired hypothyroidism E03.9 Claustrophobia F40.240 Seizure disorder, simple partial, without intractable epilepsy (HCC) G40.109 Mallet finger of right hand M20.011 Food insecurity Z59.41 Trisomy X syndrome Q97.0 Acute embolism and thrombosis of deep vein of lower extremity (HCC) I82.409 Acute embolism and thrombosis of deep vein of lower extremity (HCC) I82.409 Hyperparathyroidism (HCC) E21.3 Age-related osteoporosis without current pathological fracture M81.0 Patient cannot afford medications Z59.86 Current Outpatient Medications Medication Sig Dispense Refill Probiotic Product (PROBIOTIC ACIDOPHILUS) Capsule Take by mouth 1 Capsule daily . Pt takes the granules Cyanocobalamin (VITAMIN B-12) 2500 MCG Sublingual Tablet Take 1 Tablet by mouth in the morning. cyclobenzaprine (FLEXERIL) 10 MG Tablet 1 Tablet. two tablets at bedtime LORazepam 0.5 MG Oral Tablet (Ativan) One pill twice daily as needed 60 Tab 0 Vitamin C 125 MG Oral Tablet Chewable take 500mg daily Tums Ultra 1000 1000 MG Oral Tablet Chewable (Calcium Carbonate Antacid) 2 chews three times daily Vitamin A 3 MG (24319 UT) Oral Capsule (Aquasol-A) TAKE 1 CAPSULE BY MOUTH EVERY DAY 90 Cap 1 Meclizine HCl 25 MG Oral Tablet (Antivert) TAKE 1 TAB BY MOUTH 3 TIMES A DAY NEEDED FOR DIZZINESS. 30 Tab 5 Vitamin D3 125 MCG (5000 UT) Oral Capsule Take 2 daily. Dx E55.9 60 Cap 3 Multivitamin Adult Oral Tablet Chewable Take by mouth. Osteo multivit from [employer]. Albuterol Sulfate HFA 108 (90 Base) MCG/ACT Inhalation Aerosol Solution Inhale by mouth 2 Puffs in the morning AND 2 Puffs at noon AND 2 Puffs in the evening AND 2 Puffs before bedtime. 18 g 3 NATURAL SUPPLEMENT Take by mouth daily. Severo Melts- 1 tablet daily Biotin 38057 MCG Oral Tablet Take by mouth 2 Chip daily . Acetaminophen 500 MG Oral Tablet Take 1 Tablet by mouth every 6 hours as needed. Tylenol PM Extra Strength 500-25 MG Oral Tablet (diphenhydrAMINE-APAP (sleep)) Take 1 Tablet by mouth 3 times a day as needed for Itching. Bisacodyl 10 MG Rectal Suppository (Dulcolax) One daily as needed for constipation 24 Suppository 1 Caltrate 600+D Plus Minerals 600-800 MG-UNIT Oral Tablet Chewable Take 2 Tablets by mouth in the morning. Magnesium 100 MG Oral Capsule Take 1 Capsule by mouth in the morning. Multivitamin Adult Oral Tablet Chewable Take 2 Units by mouth in the morning. Tamsulosin HCl 0.4 MG Oral Capsule (Flomax) Take 1 Capsule by mouth in the morning. linaCLOtide 145 MCG Oral Capsule (Linzess) Take 1 Capsule by mouth daily before breakfast. 90 Capsule 3 Alendronate Sodium 70 MG Oral Tablet (Fosamax) Take 1 Tablet by mouth once a week. with 8 oz. water30 minutes before first meal of the day. Remain upright for 30 min after taking tablet. 5 Tablet 11 Warfarin Sodium 1 MG Oral Tablet (Coumadin) TAKE 1 TO 2 TABLETS BY MOUTH DAILY INSTRUCTED BY [facility] Strength: 1 mg 180 Tablet 3 Nystatin 633733 UNIT/GM External Powder (Nystop) Apply topically to affected area 3 times a day. Apply to abdominal fold as needed 60 g 5 EpiPen 2-Aramis 0.3 MG/0.3ML Injection Solution Auto-injector Inject 0.3 mg into large muscle. For multiple severe allergies. 1 Each 5 Citalopram Hydrobromide 20 MG Oral Tablet (CeleXA) TAKE 1 TABLET BY MOUTH EVERY DAY 90 Tablet 1 Levothyroxine Sodium 50 MCG Oral Tablet (Levoxyl) TAKE 1 TABLET BY MOUTH EVERY DAY AT LEAST 30 MIN BEFORE BREAKFAST OR OTHER MEDICATION 90 Tablet 3 LANCETS MISC testing three times daily/251.2 (Patient not taking: Reported on 11/11/2023) 3 Box 3 ONETOUCH ULTRASOFT LANCETS MISC Use up to four times a day as directed (Patient not taking: Reported on 11/11/2023) 1 Box 11 ONETOUCH ULTRA TEST STRP Use up to four times a day as directed (Patient not taking: Reported on11/11/2023) 100 Strip 11 Vitamin A 2400 MCG (8000 UT) Oral Capsule Take by mouth. (Patient not taking: Reported on 09/23/2023) Vitamin D3 25 MCG (1000 UT) Oral Capsule Take by mouth. (Patient not taking: Reported on 09/23/2023) diazePAM 2 MG Oral Tablet (Valium) 1-2 pills 30 to 45 min prior to MRI and do not drive after MRI. Watch for drowsiness or fall. (Patient not taking: Reported on 06/01/2023) 2 Tablet 0 Fluticasone Propionate 50 MCG/ACT Nasal Suspension (Flonase) Administer 2 Sprays into each nostril in the morning. (Patient not taking: Reported on 11/11/2023) 16 g 2 Current Facility-Administered Medications Medication Dose Route Frequency Provider Last Rate Last Admin vitamin b-12 (Cyanocobalamin) inj 1,000 mcg 1,000 mcg Intramuscular Q12 Weeks Shawna Malhotra MD 1,000 mcg at 08/31/23 1027 The patient's medication list was reviewed and updated as needed. Review of patient's allergies indicates: Allergen Reactions Kiwi Extract Anaphylaxis Mouth swelling Nutritional Supplements Anaphylaxis Throat swelling Hives - vitamin K containing Nuts [Food (See Comments)] Anaphylaxis [place], kiwis and bananas Aspirin hives Banana Other reaction(s): Anaphylaxisis Clarithromycin hives Doxepin Fruit & Vegetable Daily [Fish Oil] Banana Hydrocodone Itching and alertness Hydroxyzine headache Ibuprofen Hives Ibuprofen Other reaction(s): Hives Keflex [Cephalexin] Headaches Keppra [Levetiracetam] Neuro complications (Please comment) More headaches and "took my sight away- Completely" Kiwi Extract Other reaction(s): Anaphylaxisis Lovenox [Enoxaparin Sodium] Hives and Itching Hives developed after several exposures to Lovenox. Occurred past 2 uses. Morphine [Morphine Hcl] Neurontin [Gabapentin] Abdominal pain, "head pain" Nsaids hives, fever Pantoprazole Sodium Hives and Other (Please comment) Hives, tinnitus and headache Pepcid [Famotidine] acne Prednisone Rash, mood change Sudafed [Pseudoephedrine] Sulfamethoxazole W/Trimethoprim (Co-Trimoxazole) dizzy Topamax Psych complications Deeper depression, suicidal ideation Topiramate Other reaction(s): Psych Complications Triptans Ultram [Tramadol Hcl] Past Medical History: Diagnosis Date Acquired hypothyroidism 08/19/2019 Acute pancreatitis 11/11/1999 gallstone pancreatitis [facility] adm Cerebral ischemia 08/19/2019 Claustrophobia 08/19/2019 Constipation Depressive disorder, not elsewhere classified Fibromyalgia Gastric bypass status for obesity Gastroparesis Hypoglycemia 04/02/2015 INFORMATION 07/16-07/20 [facility]- migraines/dehydration Insomnia Intervertebral disc prolapse Mallet finger of right hand 07/11/2020 Migraine without aura saw Daniel, on fioricet. 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 Employer: [employer] Tobacco Use Smoking status: Never Smokeless tobacco: Never Tobacco comments: Passive smoke exposure while Pt is currently Vaping Use Vaping Use: Never used Substance and Sexual Activity Alcohol use: Yes Comment: Holidays Drug use: No Sexual activity: Not Currently Partners: Male control/protection: Surgical Comment: btl Other Topics Concern Weight Concern Yes Special Diet Yes Comment: takes tums when remembers Exercise Yes Comment: walks Seat Belt Yes Self-Exams No Social History Narrative [employer] [facility] INFORMATION ENVIRONMENTAL HISTORY: Type of Home: Two Story Type of Heating System: Gas and Forced air Air Conditioning: No Basement: Unfinished, Dampness and Mold, mildew Home have cockroaches: No Irritants in the home: None Patient's bedroom location: Floor: second Type of ismael: Carpeting Beds: Number: 1 Type of beds: Mattress and Box spring Pillows: Number: 2 Type of pillows: Synthetic (hypoallergenic, polyester) Bedroom contains: Minimal items Pets: 1 cat(s) and 2 dog(s) [place] farm: [place] Patient notes mold in upstairs bathroom as well. 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 Entered by: Brent Freire MD 11/18/2011 lost job at [place] [address] living with parents Not employed. Sees Stacie PT Social Determinants of Health Food Insecurity: Food Insecurity Present (09/05/2021) Hunger Vital Sign Worried About Running Out of Food in the Last Year: Sometimes true Ran Out of Food in the Last Year: Often true Family History Problem Relation Age of Onset Breast Cancer Grandmother (Paternal) 82 Asthma Sister Endocrine Disorder Sister pituitary tumor --- prolactinoma? Cancer Grandfather (Maternal) Cancer Father skin ca, a fib on coumadin Heart Disorder Father A-Fib Hypertension Mother Depression Mother Eczema Sister Eczema Nephew All system negative except as per hpi. OBJECTIVE: BP 106/62 | Pulse 85 | Temp 36.5 C (97.7 F) (Tympanic) | Ht 1.702 m (5' 7") | Wt 97.1 kg (214 lb 1.6 oz) | SpO2 96% | BMI 33.53 kg/m | BSA 2.14 m PHYSICAL EXAM: HEENT: PERRLA, EOMI, anicteric sclera, b/l tympanic membrane is pearly white, no erythema, no pharyngeal erythema, no lymphadenopathy, neck supple CVS: RRR, no murmurs, rubs or gallops, s1 s 2normal. RESP: clear to auscultation, no wheezing or crackles ABD: soft, NT/ND EXT: no edema, cyanosis, peripheral pulses palpable bilaterally No large joint swelling, no redness, range of motion normal. Skin normal. Gait normal. Mood stable No focal weakness ASSESSMENT AND PLAN: Polyneuropathy in other diseases classified elsewhere (HCC) (Primary) Advised B complex daily. Acquired hypothyroidism - Levothyroxine Sodium 50 MCG Oral Tablet (Levoxyl); TAKE 1 TABLET BY MOUTH EVERY DAY AT LEAST 30 MIN BEFORE BREAKFAST OR OTHER MEDICATION Hyperparathyroidism (HCC) Follows with endocrine. Age-related osteoporosis without current pathological fracture - COMPREHENSIVE METABOLIC PANEL; Future; Expected date: 11/11/2023 Weekly biphosphonate. Advised fall precautions. Major depressive disorder, recurrent, moderate (HCC) On celexa. Stable. Shawna Malhotra MD documented in this encounter Nursing Notes * Kelly Valencia MED ASSIST - 11/11/2023 10:47 AM EDT Chief Complaint Patient presents with Follow Up 6 month return. Pt denied any new concerns documented in this encounter Plan of Treatment Upcoming Encounters Date Type Department Care Team (Late st Contact Info) Description 12/09/2023 10:50 AM EDT Anticoagulation Pharmacy, [address] [address] [facility] [place] [address] 03/30/2024 11:20 AM EDT Office Visit Nutrition & Weight Management, [facility] [address] [address] La Beltran PA-C [address] [address] 03/30/2024 12:30 PM EDT Nutrition Services Nutrition & Weight Management, [facility] [address] [address] Liliana Hernandez, DORENE [address] [place] [address] 05/25/2024 10:00 AM EST Office Visit General Internal Medicine [facility] [address] [place] [address] Shawna Malhotra MD [address] [facility] [place] [address] Scheduled Orders Name Type Priority Associated Diagnoses Orde r Schedule COMPREHENSIVE METABOLIC PANEL Lab Routine Age-related osteoporosis without current pathological fracture Expected: 11/11/2023 (Approximate), Expires: 11/10/2024 Scheduled Procedures Name Priority Associated Diagnoses Date/Ti [...] this encounter Medical Devices Implanted Type Area Filter Tip Inspector Device Identifier Shelf Expiration Date Model / Serial / Lot Mesh 3dmax 3.1x5.3in t Med - [id number] Implanted:Qty: 1 on 06/27/2022 by Damion Pearl MD at OR [facility] Right: Yolain JOLENE BARD : DAVOL 05/09/2026 [id number] / / [id number] documented as of this encounter Visit Diagnoses Diagnosis Polyneuropathy in other diseases classified elsewhere (HCC)- Primary Polyneuropathy in other diseases classified elsewhere Acquired hypothyroidism Unspecified hypothyroidism Hyperparathyroidism (HCC) Hyperparathyroidism, unspecified Age-related osteoporosis without current pathological fracture Senile osteoporosis Major depressive disorder, recurrent, moderate (HCC) Major depressive disorder, recurrent episode, moderate documented in this encounter Advance Directives Latest [...] 3:19 PM 11/12/2008 5:08 PM Care Teams Manager Project Management Relationship Specialty Start Date End Date Shawna Malhotra MD [address] [place] [address] PCP - General Internal Medicine 08/31/18 documented as of this encounter
--- OUTSIDE RECORDS SUMMARY | 2024-02-02 05:44 | External Medical Summary ---
Author Name Unknown Address Unknown Organization [id number]:[facility] - [address] [facility] [address] Laboratory Report Ordering Provider Test Date Status MARYJANE RODAS 12/09/2023 11:02:04 Final Observation Date Value Abnormality Reference (Units ) Status TSH 12/09/2023 11:02:04 1.95 0.27-4.20 (uIU/mL) Final Performing Location [facility] - [address] [facility] [address]
--- OUTSIDE RECORDS SUMMARY | 2024-02-02 05:44 | External Medical Summary | Summary of Care ---
Author Name Unknown Organization [facility] Address [address] [place] [address] Phone [phone] Care Team Providers Care Retail Project Merchandiser Name Role Phone Shawna Malhotra MD Primary Care Provider + Reason for Visit * Reason Comments Outpatient Testing Encounter Details Date Type Department Care Team (Latest Contact Info) Description 12/09/2023 11:00 AM EDT Laboratory Laboratory, [place] [address] [place] [id number] [place], [facility] [address], [place] [phone] Hyperparathyroidism (HCC); Hypothyroidism, unspecified type; Encounter for long-term (current) use of medications; Age-related osteoporosis without current pathological fracture Allergies Active Allergy Reactions Criticality Noted Date [...] containing Food (See Comments) Anaphylaxis High 11/16/2006 [place], kiwis and bananas Pantoprazole Sodium Hives,Other (Please [...] daily 10/26/2020 Active Vitamin A 3 MG (26708 UT) Oral Capsule (Aquasol-A) TAKE 1 CAPSULE [...] Chewable Take by mouth. Osteo multivit from [employer]. Active Albuterol Sulfate HFA 108 (90 Base) MCG/ACT Inhalation Aerosol Solution Inhale by mouth 2 Puffs in the morning AND 2 Puffs at noon AND 2 Puffs in the evening AND 2 Puffs before bedtime. 18 g 3 08/19/2021 Active NATURAL SUPPLEMENT Take by mouth daily. 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 0 08/03/2003 [...] (Heplisav-B) 12/10/2022,11/06/2022 Pneumococcal Conjugate Vacci ne, 20-valent ([id number]) 11/06/2022 Pneumococcal Polysaccharide PPV23 (Pneumovax) 04/19/2009 Seasonal [...] on file documented as of this encounter Plan of Treatment Upcoming Encounters Date Type Department Care Team (Late st Contact Info) Description 01/04/2024 10:50 AM EDT [facility] [place] [address] [facility] [address] [facility] [address] [facility] [address] 03/30/2024 11:20 AM EDT Office Visit Nutrition & Weight Management, [facility] [address] [place] [address] aL Beltran PA-C [address] [place] [address] 03/30/2024 12:30 PM EDT Nutrition Services Nutrition & Weight Management, [facility] [address] [place] [address] Liliana Hernandez RDN [address] [place] [address] 05/25/2024 10:00 AM EST Office Visit General Internal Medicine [facility] [address] [facility] [place] [address] Shawna Malhotra MD [address] [facility] [place], [place] [address] Pending Results Name Type Priority Associated Diagnoses Date /Time TSH WITH FREE T4 IF INDICATED Lab Routine Hyperparathyroidism (HCC) Hypothyroidism, unspecified type 12/09/2023 11:02 AM EDT COMPREHENSIVE METABOLIC PANEL Lab Routine Age-related osteoporosis without current pathological fracture 12/09/2023 11:02 AM EDT Scheduled Procedures Name Priority Associated Diagnoses Date/Ti [...] 11/14/2022, Additional history exists Colonoscopy 06/12/2026 06/12/2016, 1207/2015, 07/29/2004, Additional history exists Colorectal Cancer Screening 06/12/2026 Zoster Vaccines Completed 05/02/2020, 02/10, 03/19/2018 Pneumococcal Vaccine: Pediatrics (0 to 5 Years) and At-Risk Patients (6 to 64 Years) Completed 11/06/2022, 04/19/2009 Hepatitis B Completed 12/10/2022, 11/06/2022 VITAMIN D LEVEL ONCE IN A LIFETIME-USE SMARTSET# [id number] Completed 03/24/2023, 11/06/2022, 06/16/2022, Additional history exists Influenza Vaccine (FLU shot) Completed 04/2023, 04/24/2022, 04/16/2021, Additional history exists GARDASIL-HPV IMMUNIZATION SERIES Aged Out No longer eligible based on patient's age to complete this topic MENINGOCOCCAL (MENACTRA/MENVEO) Aged Out No longer eligible based on patient's age to complete this topic documented as of this encounter Medical Devices Implanted Type Area Manager Cath Lab Device Identifier Shelf Expiration Date Model / Serial / Lot Mesh 3dmax 3.1x5.3in t Med - [id number] Implanted:Qty: 1 on 06/27/2022 by Damion Pearl MD at OR [facility] Right: Glenn FERNÁNDEZ BARD : JELLY 05/09/2026 [id number] / / [id number] documented as of this encounter Visit Diagnoses Diagnosis Hyperparathyroidism (HCC) Hyperparathyroidism, unspecified Hypothyroidism, unspecified type Encounter for long-term (current) use of medications Encounter for long-term (current) use of other medications Age-related osteoporosis without current pathological fracture Senile osteoporosis documented in this encounter Advance Directives * [...] 3:19 PM 11/12/2008 5:08 PM Care Teams Retail Project Merchandiser Relationship Specialty Start Date End Date Shawna Malhotra MD [address] [place] [address], [place] [address] PCP - General Internal Medicine 08/31/18 documented as of this encounter
--- OUTSIDE RECORDS SUMMARY | 2024-02-02 05:44 | External Medical Summary | Summary of Care ---
Author Name Unknown Organization [facility] Address [address] [place] [address] Phone [phone] Care Team Providers Care Rifle Case Repairer Name Role Phone Shawna Malhotra MD Primary Care Provider + Reason for Visit * Reason Comments Dosage Adjustment In Person (Anticoag Cl inic) Encounter Details Date Type Department Care Team (Latest Contact Info) Description 11/09/2023 11:10 AM EDT Anticoagulation Pharmacy, [place] [address] [place] [address] [facility] [address] [place] [address] Anticoagulation management encounter*; History of deep venous [...] containing Food (See Comments) Anaphylaxis High 11/16/2006 [place], kiwis and bananas Pantoprazole Sodium Hives,Other (Please comment) 01/21/2012 Hives, tinnitus and headache Famotidine 08/02/2019 acne Prednisone 10/20/2014 Rash, mood change Pseudoephedrine 04/09/2010 Sulfamethoxazole W/Trimethoprim (Co-Trimoxazole) 12/28/2002 dizzy Topamax Psych complications 05/19/2014 Deeper depression, suicidal ideation Topiramate 09/23/2021 Other reaction(s): Psych Complications Triptans 08/22/2004 Tramadol Hcl 05/26/2007 documented as of this encounter (statuses as of 11/09/2023) Medications Medication Sig Dispensed Refills Start Date [...] 0 10/26/2020 Active Vitamin A 3 MG (15893 UT) Oral Capsule (Aquasol-A) TAKE 1 CAPSULE [...] Chewable Take by mouth. Osteo multivit from [employer]. 0 Active Albuterol Sulfate HFA 108 (90 Base) MCG/ACT Inhalation Aerosol Solution Inhale by mouth 2 Puffs in the morning AND 2 Puffs at noon AND 2 Puffs in the evening AND 2 Puffs before bedtime. 18 g 3 08/19/2021 Active NATURAL SUPPLEMENT Take by mouth daily. Severo Melts- 1 tablet daily 0 Active Biotin 55541 MCG Oral Tablet Take by mouth 2 [...] morning. 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 Food insecurity 03/24/2022 Overview: Per [facility] Protocol Mallet finger of right [...] surgery syndrome 01/15/2009 Intestinal postoperative nonabsorption 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 0 08/03/2003 Anticoagulation management encounter 01/11/2002 COMMON MIGRAINE WITHOUT MENTION OF INTRACTABLE M IGRAINE Gastroparesis Insomnia OA (osteoarthritis) documented as of this encounter (statuses as of 11/09/2023) Resolved Problems Problem Noted Date Diagnosed Date [...] as of this encounter (statuses as of 11/09/2023) Immunizations Name Administration Dates Next Due COVID-19, LNP-s, No Preserve , Rony-sucrose, Ages 12+ (Pfizer) 08/22/2022 Covid-19, Mrna, Lnp-s, Pf, B ivalent, 30 Mcg, IM, 12 yrs and above ([employer]) 06/19/2022 H1N1 2009 Influenza, IM 07/05/2009 Hepatitis B Vaccine, Recombi nant, Adjuvanted, 20 mcg/mL (Heplisav-B) 12/10/2022,11/06/2022 Pneumococcal Conjugate Vacci ne, 20-valent ([id number]) 11/06/2022 Pneumococcal Polysaccharide PPV23 (Pneumovax) 04/19/2009 Seasonal [...] this encounter Progress Notes * Yadi Bazan RP - 11/09/2023 10:44 AM EDT Images from the original note were not included. Medication Therapy Disease Management - Anticoagulation Patient: Carolee Zafar | : 1965 Subjective Patient-Reported Symptoms: Patient Findings Positives: Missed doses (missed last thursday) Negatives: Signs/symptoms of thrombosis, Signs/symptoms of bleeding, Change in health, Change in alcohol use, Change in activity, Upcoming invasive procedure, Extra doses, Change in medications, Change in diet/appetite, Bruising Objective Current Warfarin Dose As of 11/09/2023 Warfarin maintenance plan: 1 mg (1 mg x 1) every day INR Result As of 11/09/2023 INR goal: 1.8-2.5 INR used for dosin.5 (11/09/2023) Assessment & Plan Warfarin Plan As of 11/09/2023 Full warfarin instructions: 11/08: 1.5 mg; Otherwise 1 mg every day Next INR check: 12/09/2023 Repeat PT/INR in 4 week(s) Weekly dose: not changed Additional Dosing Information: Yadi Bazan [facility] Clinical Pharmacist 11/09/2023, 10:44 AM documented in this encounter Plan of Treatment Upcoming Encounters Date Type Department Care Team (Late st Contact Info) Description 11/11/2023 10:40 AM EDT Office Visit General Internal Medicine [facility] [address] [place], [place] [address] Shawna Malhotra MD [address] [place] [address] 12/09/2023 10:50 AM EDT Anticoagulation Pharmacy, [place] [address] [place] [address] [place], [facility] [address] [place] [address] 03/30/2024 11:20 AM EDT Office Visit Nutrition & Weight Management, [facility] [address] [facility] [place] [address] La Beltran PA-C [address] [place] [address] 03/30/2024 12:30 PM EDT Nutrition Services Nutrition & Weight Management, [facility] [address] [facility] [place] [address] Liliana Hernandez RDN [address] [place] [address] Scheduled Procedures Name Priority Associated Diagnoses Date/Ti [...] this encounter Medical Devices Implanted Type Area Punchboard Inserter Device Identifier Shelf Expiration Date Model / Serial / Lot Mesh 3dmax 3.1x5.3in [facility] Med - [id number] Implanted:Qty: 1 on 06/27/2022 by Damion Pearl MD at OR [facility] Right: Groin CR BARD : DAVOL 05/09/2026 [id number] / / [id number] documented as of this encounter Procedures Procedure Name Priority Date/Time Associated Diagnosis Comments INR FINGERSTICK, POINT OF CARE STAT 11/09/2023 10:49 AM EDT History of deep venous thrombosis Cerebral ischemia Anticoagulation management encounter documented in this encounter Results * INR FINGERSTICK, POINT OF CARE (11/09/2023 10:49 AM EDT) Fingerstick INR 1.5 INR 10:51 AM EDT LAB[facility]AT[facility] [place] [id number] Blood 11/09/2023 10:4 9 AM EDT 11/09/2023 10:51 AM EDT Narrative [facility] - 11/09/2023 10:51 AM EDT Therapeutic ranges for non-operative patients: Prophylaxsis/treatment of DVT: (Range:2.0-3.0) Treatment of pulmonary embolism:(Range:2.0-3.0) Prevention of systemic embolism from: -tissue heart valves -acute myocardial infarction -valvular heart disease -atrial fibrillation (Range: 2.0-3.0) Mechanical prosthetic valves: (Range: 2.5-3.5) Yadi Bazan [facility] LAB POINT OF CARE TEST DOCKED DEVICE UNSOLICITED RESULTS [facility] [address] [place] [phone] documented in this encounter Visit Diagnoses Diagnosis Anticoagulation management encounter- Primary Encounter for therapeutic drug monitoring History of deep venous thrombosis Personal history of venous thrombosis and embolism Cerebral ischemia Other generalized ischemic cerebrovascular disease documented in this encounter Advance Directives Latest [...] 3:19 PM 11/12/2008 5:08 PM Care Teams Rifle Case Repairer Relationship Specialty Start Date End Date Shawna Malhotra MD [address] [place] [address] PCP - General Internal Medicine 08/31/18 documented as of this encounter
--- OUTSIDE RECORDS SUMMARY | 2024-02-02 05:44 | External Medical Summary ---
Author Name Unknown Address Unknown Organization : Laboratory Report Ordering Provider Test Date Status RIZWAN RODRÍGUEZ 12/09/2023 10:53:16 Final Therapeutic ranges for non-o perative patients:
Prophylaxsis/treatment of DVT: (Range:2.0-3.0)
Treatment of pulmonary embolism:(Range:2.0-3.0)
Prevention of systemic embolism from:
-tissue heart valves
-acute myocardial infarction
-valvular heart disease
-atrial fibrillation
(Range: 2.0-3.0)
Mechanical prosthetic valves: (Range: 2.5-3.5) Observation Date Value Abnormality Reference (Units ) Status INR in Capillary blood by Coagulation assay 12/09/2023 10:53:16 1.4 (INR) Final Performing Location
--- OUTSIDE RECORDS SUMMARY | 2024-02-02 05:44 | External Medical Summary ---
Author Name Unknown Address Unknown Organization [id number]:LABORATORY [facility] - [address] [facility] [address] Laboratory Report Ordering Provider Test Date Status NINA CUMMINGS 12/09/2023 11:02:04 Final Observation Date Value Abnormality Reference (Units ) Status BUN 12/09/2023 11:02:04 9 6-20 (mg/dL) Final Creatinine 12/09/2023 11:02:04 0.9 0.5-1.0 (mg/dL) Final Glomerular filtration rate/1.73 sq M.predicted [Volume Rate/Area] in Serum, Plasma or Blood by Creatinine-based formula (CKD-EPI) 12/09/2023 11:02:04 77 >=60 (mL/min) Final eGFR is calculated based on the CKD-EPI 2020 equation Sodium 12/09/2023 11:02:04 141 135-146 (m mol/L) Final Potassium 12/09/2023 11:02:04 4.3 3.5-5.1 (m mol/L) Final Cl 12/09/2023 11:02:04 104 98-107 (mm ol/L) Final CO2 12/09/2023 11:02:04 28 22-32 (mmo l/L) Final Anion gap 12/09/2023 11:02:04 9 7-15 (mmol /L) Final Glucose 12/09/2023 11:02:04 76 70-120 (mg /dL) Final Albumin 12/09/2023 11:02:04 4.1 3.8-5.0 (g /dL) Final AST (Aspartate aminotransferase) 12/09/2023 11:02:04 22 10-35 (U/L) Final Alk Phos 12/09/2023 11:02:04 120 35-130 (U/ L) Final Bilirubin, Total 12/09/2023 11:02:04 0.3 <=1 .2 (mg/dL) Final Calcium 12/09/2023 11:02:04 9.5 8.4-10.2 ( mg/dL) Final Protein 12/09/2023 11:02:04 6.9 6.0-8.3 (g /dL) Final ALT (Alanine aminotransferase) 12/09/2023 11:02:04 17 10-35 (U/L) Final Performing Location LABORATORY [facility] - [address] [facility] [address]
--- OUTSIDE RECORDS SUMMARY | 2024-02-02 05:45 | External Medical Summary | Summary of Care ---
Author Name Unknown Organization [facility] Address [address] [place] [address] Phone [phone] Care Team Providers Care Management Specialist Name Role Phone Shawna Malhotra MD Primary Care Provider + Encounter Details Date Type Department Care Team (Late st Contact Info) Description 10/26/2023 Result Scan Unspecified Department <No scans attached> Allergies Active Allergy Reactions Criticality Noted Date [...] containing Food (See Comments) Anaphylaxis High 11/16/2006 [place], kiwis and bananas Pantoprazole Sodium Hives,Other (Please comment) 01/21/2012 Hives, tinnitus and headache Famotidine 08/02/2019 acne Prednisone 10/20/2014 Rash, mood change Pseudoephedrine 04/09/2010 Sulfamethoxazole W/Trimethoprim (Co-Trimoxazole) 12/28/2002 dizzy Topamax Psych complications 05/19/2014 Deeper depression, suicidal ideation Topiramate 09/23/2021 Other reaction(s): Psych Complications Triptans 08/22/2004 Tramadol Hcl 05/26/2007 documented as of this encounter (statuses as of 10/27/2023) Medications Medication Sig Dispensed Refills Start Date [...] 0 10/26/2020 Active Vitamin A 3 MG (30267 UT) Oral Capsule (Aquasol-A) TAKE 1 CAPSULE [...] Chewable Take by mouth. Osteo multivit from [employer]. 0 Active Albuterol Sulfate HFA 108 (90 Base) MCG/ACT Inhalation Aerosol Solution Inhale by mouth 2 Puffs in the morning AND 2 Puffs at noon AND 2 Puffs in the evening AND 2 Puffs before bedtime. 18 g 3 08/19/2021 Active NATURAL SUPPLEMENT Take by mouth daily. Severo Melts- 1 tablet daily 0 Active Biotin 88917 MCG Oral Tablet Take by mouth 2 [...] morning. 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 Food insecurity 03/24/2022 Overview: Per [facility] Protocol Mallet finger of right [...] surgery syndrome 01/15/2009 Intestinal postoperative nonabsorption 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 0 08/03/2003 Anticoagulation management encounter 01/11/2002 COMMON MIGRAINE WITHOUT MENTION OF INTRACTABLE M IGRAINE Gastroparesis Insomnia OA (osteoarthritis) documented as of this encounter (statuses as of 10/27/2023) Resolved Problems Problem Noted Date Diagnosed Date [...] as of this encounter (statuses as of 10/27/2023) Immunizations Name Administration Dates Next Due COVID-19, LNP-s, No Preserve , Rony-sucrose, Ages 12+ (Pfizer) 08/22/2022 Covid-19, Mrna, Lnp-s, Pf, B ivalent, 30 Mcg, IM, 12 yrs and above (Pfizer) 06/19/2022 H1N1 2009 Influenza, IM 07/05/2009 Hepatitis B Vaccine, Recombi nant, Adjuvanted, 20 mcg/mL (Heplisav-B) 12/10/2022,11/06/2022 Pneumococcal Conjugate Vacci ne, 20-valent ([id number]) 11/06/2022 Pneumococcal Polysaccharide PPV23 (Pneumovax) 04/19/2009 Seasonal [...] Care Team (Late st Contact Info) Description 10/28/2023 9:50 AM EDT [facility] [place] [address] [facility] [address] [facility] [address] [facility] [address] 11/11/2023 10:40 AM EDT Office Visit General Internal Medicine [facility] [address] [place] [address] Shawna Malhotra MD [address] [place] [address] 03/30/2024 11:20 AM EDT Office Visit Nutrition & Weight Management, [facility] [address] [place] [address] La Beltran PA-C [address] [facility] [address] 03/30/2024 12:30 PM EDT Nutrition Services Nutrition & Weight Management, [facility] [address] [place] [address] Liliana Hernandez RDN [address] [facility] [place] [address] Scheduled Procedures Name Priority Associated Diagnoses Date/Ti [...] this encounter Medical Devices Implanted Type Area Electrical Engineering Professor Device Identifier Shelf Expiration Date Model / Serial / Lot Mesh 3dmax 3.1x5.3in [facility] Med - [id number] Implanted:Qty: 1 on 06/27/2022 by Damion Pearl MD at OR [facility] Right: Groin CR BARD : DAVOL 05/09/2026 [id number] / / [id number] documented as of this encounter Procedures Procedure Name Priority Date/Time Associated Diagnosis Comments PROCEDURE SCANNED RESULT 10/26/2023 documented in this encounter Results * PROCEDURE SCANNED RESULT (10/26/2023) 10/26/2023 No Physician Data Unknown SURGERY documented in this encounter Advance Directives Latest [...] 3:19 PM 11/12/2008 5:08 PM Care Teams Management Specialist Relationship Specialty Start Date End Date Shawna Malhotra MD [address] [place] [address] PCP - General Internal Medicine 08/31/18 documented as of this encounter
--- NOTE | 2024-02-02 07:22 | XRay Report ---
XR chest 1V portable HISTORY: 58 years-old Female Sepsis COMPARISON: 02/10/2023 TECHNIQUE: AP view of the chest FINDINGS: Cardiomediastinal and hilar silhouettes are within normal limits. The lungs are clear. No pneumothora x or pleural effusion. Bones appear grossly intact. IMPRESSION: No acute process. ACT 112: Negative or not required by law. The above report was generated using voice recognition software. It may contain grammatical, syntax o r spelling errors. Electronically signed by: Mitch Vieira M.D. 02/02/2024 7:21 AM
--- NOTE | 2024-02-02 08:02 | History & Physical Report ---
Date of Service February 02, 2024 Assessment & Plan (1) Confusion: Plan: 58-year-old female with past medical history significant for hypothyroidism, hyperparathyroidism, unspecified asthma, history of DVT last DVT more than 10 years ago as per , history of gastroparesis, post gastric surgery syndrome, GERD, osteoarthritis, osteoporosis, migraine, polyneuropathy, seizure disorder simple partial, depression, trisomy X syndrome who lives at home with her was brought in because of confusion. As per patient was prescribed prednisone few days ago by PCP for ongoing upper respiratory symptoms. She started taking prednisone yesterday. After after that she developed nausea vomiting and acting confused. Initially she does not really know where she was. She cannot remember family numbers. But thinks her mental status is somewhat improved now.Patient can tell her name. Knows that she is in the hospital. Could tell her date of . But could not tell current dates. And keep on asking why she is in the hospital. Otherwise she is answering other questions appropriately. And obeying simple commands. Complaining of headache. No blurred vision. Some cough. Denies any chest pain or shortness of breath at this time. No nausea , no abdominal pain. Normal bowel and bladder movements. Hemodynamically stable. Patient is allergic to many medications. per patient had has allergic reaction to the prednisone in the past but not sure what it was. Per epic prednisone caused rash and mood change. Confusion Most likely from steroid use CT head is okay Labs mostly okay Respiratory bio fire negative Chest x-ray unremarkable CT head negative UA seems unremarkable Will closely monitor If not improving will consult neurology Hypothyroidism On Synthyroid TSH is okay History of DVT Several years ago On warfarin INR subtherapeutic at 1.4 thinks she might of missed some doses At his warfarin dose Follow PT/INR Heparin subcu until INR Therapeutic Asthma Continue home inhalers Depression On citalopram Migraines tylenol prn DVT prophylaxis Heparin subcu until INR therapeutic Disposition Telemetry Full code. History of Present Illness Chief Complaint: Confusion Primary Care Provider: Shawna Malhotra MD 58-year-old female with past medical history significant for hypothyroidism, hyperparathyroidism, unspecified asthma, history of DVT last DVT more than 10 years ago as per , history of gastroparesis, post gastric surgery syndrome, GERD, osteoarthritis, osteoporosis, migraine, polyneuropathy, seizure disorder simple partial, depression, trisomy X syndrome who lives at home with her was brought in because of confusion. As per patient was prescribed prednisone few days ago by PCP for ongoing upper respiratory symptoms. She started taking prednisone yesterday. After after that she deve loped nausea vomiting and acting confused. Initially she does not really know where she was. She cannot remember family numbers. But thinks her mental status is somewhat improved now.Patient can tell her name. Knows that she is in the hospital. Could tell her date of . But could not tell current dates. And keep on asking why she is in the hospital. Otherwise she is answering other questions appropriately. And obeying simple commands. Complaining of headache. No blurred vision. Some cough. Denies any chest pain or shortness of breath at this time. No nausea , no abdominal pain. Normal bowel and bladder movements. Hemodynamically stable. Patient is allergic to many medications. per patient had has allergic reaction to the prednisone in the past but not sure what it was. Per epic prednisone caused rash and mood change. Past medical history. As mentioned above Past surgical history. Colonoscopy. Cystoscopy, EGD. EGD with trans endoscopic dilatation. EGD with biopsy. Endometrial cryoablation. Laparoscopic gastric Milka-en-Y bypass. Laparoscopic inguinal hernia repair. Ligation of oviducts. Right inguinal hernia repair. Laparoscopic cholecystectomy. Social history. . No smoking. Alcohol occasional. No drug use. Family history. Mother has arthritis. Depression. Eye problems. Heart disorder. Hypertension. Thyroid disorder. Father skin cancer. A-fib. Heart disorder. Sister had Pituitary tumor Allergies Allergy/AdvReac Type Severity Reaction Status Date / Time bee venom protein (honey bee) Allergy Severe SHORTNESS Verified 10/14/23 13:18 OF BREATH banana Allergy Intermediate Lips Verified 10/14/23 13:18 swelled and "got bumps in mouth" enoxaparin Allergy Intermediate HIVES Verified 10/14/23 13:18 ibuprofen Allergy Intermediate Hives Verified 10/14/23 13:18 pantoprazole Allergy Intermediate HIVES Verified 10/14/23 13:18 pregabalin [From Lyrica] Allergy Intermediate SEE COMMENT Verified 10/14/23 13:18 tramadol Allergy Intermediate PRURITIS Verified 10/14/23 13:18 aspirin Allergy Unknown Unknown Verified 10/14/23 13:18 baclofen Allergy Unknown Unknown Verified 10/14/23 13:18 cephalexin Allergy Unknown Unknown Verified 10/14/23 13:18 clarithromycin Allergy Unknown Unknown Verified 10/14/23 13:18 doxepin Allergy Unknown Unknown Verified 10/14/23 13:18 guaifenesin Allergy Unknown Unknown Verified 10/14/23 13:18 hydrocodone Allergy Unknown Unknown Verified 10/14/23 13:18 hydromorphone Allergy Unknown Unknown Verified 10/14/23 13:18 kiwi Allergy Unknown Unknown Verified 10/14/23 13:18 lamotrigine [From Lamictal] Allergy Unknown Unknown Verified 10/14/23 13:18 mold Allergy Unknown Unknown Verified 10/14/23 13:18 nitrofurantoin Allergy Unknown Unknown Verified 10/14/23 13:18 NSAIDS (Non-Steroidal Allergy Unknown Unknown Verified 10/14/23 13:18 Anti-Inflamma nut - unspecified Allergy Unknown WALNUTS-UNK Verified 10/14/23 13:18 NOWN prednisone Allergy Unknown Unknown Verified 10/14/23 13:18 pseudoephedrine Allergy Unknown Unknown Verified 10/14/23 13:18 Sulfa (Sulfonamide Allergy Unknown Unknown Verified 10/14/23 13:18 Antibiotics) [id number] Antimigraine Allergy Unknown Unknown Verified 10/14/23 13:18 Agents verapamil Allergy Unknown Unknown Verified 10/14/23 13:18 walnut Allergy Unknown Unknown Verified 10/14/23 13:18 gabapentin AdvReac Severe LOST EYE Verified 10/14/23 13:18 SIGHT morphine AdvReac Severe SEVERE Verified 10/14/23 13:18 ANXIETY, SHAKING, BECAME RED ALL OVER trazodone AdvReac Severe Severe Verified 10/14/23 13:18 Migraine topiramate AdvReac Intermediate Psych Verified 10/14/23 13:18 Complications Home Medications Medication Instructions Recorded Confirmed Type albuterol sulfate 90 mcg/actuation 2 inh inhalation Q6H PRN Shortness 02/02/24 02/02/24 History aerosol inhaler Of Breath Or Wheezing alendronate 70 mg tablet 70 mg PO WK 02/02/24 02/02/24 History citalopram 20 mg tablet 20 mg PO DAILY 02/02/24 02/02/24 History cyclobenzaprine 10 mg tablet 10 mg PO HS PRN back spasm 02/02/24 02/02/24 History levothyroxine 50 mcg tablet 50 mcg PO DAILY 02/02/24 02/02/24 History linaclotide 145 mcg capsule 145 mcg PO DAILY 02/02/24 02/02/24 History (Linzess) ondansetron 4 mg disintegrating 4 mg PO TID PRN Nausea And Vomiting 02/02/24 02/02/24 History tablet warfarin 1 mg tablet 1 mg PO UD 02/02/24 02/02/24 History Past Med/Surg History Problem List (Updated 02/02/24 @ 08:11 by Loc Cordova MD) Confusion Headache (Acute) Altered mental status (Acute) Carpal tunnel syndrome on both sides Chronic migraine with aura Compression fracture of T3 vertebra Lumbar radiculopathy Numbness and tingling in both hands Numbness and tingling of both feet Chronic cerebral ischemia Depression with anxiety Cognitive impairment Unspecified asthma (Acute 10/06/12) History of esophageal reflux (Acute 10/06/12) Gastroparesis (Acute 10/06/12) Syncope and collapse (Acute 10/06/12) Lumbar spinal stenosis Migraine Medical History Osteoporosis Surgical History Surgical history of tubal ligation S/P cholecystectomy Family History Grandmother (Paternal) Breast cancer Cancer Uncle Cancer Mother No pertinent family history Social History Smoking Status: Unknown if ever smoked Feels Safe at Home: Yes Review of Systems Review of Systems: All systems reviewed & are unremarkable except as noted in HPI & below Physical Exam Physical Exam: General- Not n acute distress Head- atraumatic Eyes- PERRL, EOMI. ENT- oropharynx clear Neck- supple, no JVD. Lungs- clear to auscultation no wheezing or crackles. Heart- regular rate and rhythm; no murmur, no gallop. Abdomen- normal bowel sounds, soft, nontender, no distension Extremities- no pretibial edema, no erythema seen Neuro- alert, oriented x 2; PERRL, EOMI; no facial palsy; no dysarthria; motor 5/5 bilaterally; no pronator drift, co ordination of movements normal, sensations intact, position sense intact Skin- warm & dry Results & Data Results & Data Vital Signs (Past 12 Hours) Vital Signs Temp Pulse Pulse Resp BP BP Pulse Ox 02/02/24 07:21 36.9 C 02/02/24 07:00 68 14 127/82 95 02/02/24 06:32 69 12 137/85 98 02/02/24 03:58 36.8 C 89 17 141/93 H 94 02/02/24 03:57 91 H O2 Del Method 02/02/24 07:21 02/02/24 07:00 Room Air 02/02/24 06:32 Room Air 02/02/24 03:58 Room Air 02/02/24 03:57 Diagnostic Findings Laboratory Results WBC 10.98 K/ul (4.8-10.8) H 02/02/24 03:58 RBC 4.66 M/uL (4.20-5.40) 02/02/24 03:58 Hgb 13.4 g/dl (12.0-16.0) 02/02/24 03:58 Hct 40.9 % (37.0-47.0) 02/02/24 03:58 MCV 87.8 fL (80.0-100.0) 02/02/24 03:58 MCH 28.8 pg (25.0-34.0) 02/02/24 03:58 MCHC 32.8 g/dL (32.0-36.0) 02/02/24 03:58 RDW Std Deviation 46.8 fL (36.4-46.3) H 02/02/24 03:58 RDW Coeff of Ruben 14.6 % (11.5-14.5) H 02/02/24 03:58 Plt Count 280 K/uL (130-400) 02/02/24 03:58 MPV 9.8 fL (9.4-12.4) 02/02/24 03:58 Immature Gran % (Auto) 0.4 % 02/02/24 03:58 Neut % (Auto) 69.6 % 02/02/24 03:58 Lymph % (Auto) 21.7 % 02/02/24 03:58 [place] % (Auto) 7.5 % 02/02/24 03:58 Eos % (Auto) 0.5 % 02/02/24 03:58 Baso % (Auto) 0.3 % 02/02/24 03:58 Neut # (Auto) 7.65 K/uL (1.40-6.50) H 02/02/24 03:58 Lymph # (Auto) 2.38 K/uL (1.20-3.40) 02/02/24 03:58 [place] # (Auto) 0.82 K/uL (0.11-0.59) H 02/02/24 03:58 Eos # (Auto) 0.06 K/uL (0.00-0.50) 02/02/24 03:58 Baso # (Auto) 0.03 K/uL (0.00-0.20) 02/02/24 03:58 Immature Gran # (Auto) 0.04 K/uL (0.01-0.20) 02/02/24 03:58 PT 15.1 Seconds (9.0-12.0) H 02/02/24 03:58 INR 1.4 (0.9-1.1) H 02/02/24 03:58 APTT 28 Seconds (21-31) 02/02/24 03:58 PTT Ratio 1.0 02/02/24 03:58 Sodium 137 mmol/L (136-145) 02/02/24 03:58 Potassium 3.9 mmol/L (3.5-5.1) 02/02/24 03:58 Chloride 103 mmol/L (98-107) 02/02/24 03:58 Carbon Dioxide 25 mmol/L (21-32) 02/02/24 03:58 Anion Gap 9 (3-11) 02/02/24 03:58 BUN 14 mg/dl (6-23) 02/02/24 03:58 Creatinine 0.82 mg/dl (0.6-1.2) 02/02/24 03:58 Est Cr Clr Drug Dosing Not Reportable 02/02/24 03:58 Est GFR ( Amer) 91.4 ml/min 02/02/24 03:58 Est GFR (Non-Af Amer) 78.9 ml/min 02/02/24 03:58 BUN/Creatinine Ratio 17.1 (10-20) 02/02/24 03:58 Glucose 99 mg/dl (70-99(Fasting)) 02/02/24 03:58 Lactate 1.1 mmol/L (0.4-2.0) 02/02/24 03:55 Calcium 9.5 mg/dl (8.6-10.3) 02/02/24 03:58 Magnesium 1.9 mg/dl (1.7-2.4) 02/02/24 03:58 Total Bilirubin 0.3 mg/dl (0.2-1.0) 02/02/24 03:58 Direct Bilirubin 0.1 mg/dl (0-0.2) 02/02/24 03:58 AST 21 U/L (13-39) 02/02/24 03:58 ALT 12 U/L (7-52) 02/02/24 03:58 Alkaline Phosphatase 110 U/L (34-104) H 02/02/24 03:58 Troponin I High Sens 3.6 pg/ml (0-14) 02/02/24 03:58 Total Protein 8.1 gm/dl (6.0-8.3) 02/02/24 03:58 Albumin 4.1 gm/dl (3.4-5.0) 02/02/24 03:58 Procalcitonin < 0.02 ng/ml (0-0.5) 02/02/24 03:58 TSH 3.743 uIu/ml (0.300-4.500) 02/02/24 03:58 Urine Color Yellow 02/02/24 06:28 Urine Appearance Clear (Clear) 02/02/24 06:28 Urine pH 7.0 (4.5-7.5) 02/02/24 06:28 Ur Specific [place] 1.010 (1.000-1.030) 02/02/24 06:28 Urine Protein Negative (Negative) 02/02/24 06:28 Urine Glucose (UA) Negative (Negative) 02/02/24 06:28 Urine Ketones Negative (Negative) 02/02/24 06:28 Urine Blood Negative (Negative) 02/02/24 06:28 Urine Nitrite Negative (Negative) 02/02/24 06:28 Urine Bilirubin Negative (Negative) 02/02/24 06:28 Urine Urobilinogen Negative (Negative) 02/02/24 06:28 Ur Leukocyte Esterase 1+ (Negative) H 02/02/24 06:28 Urine WBC (Auto) 0-5 /hpf (0-5) 02/02/24 06:28 Urine RBC (Auto) 0-2 /hpf (0-2) 02/02/24 06:28 U Hyaline Cast (Auto) 0-2 /lpf (0-2) 02/02/24 06:28 U Epithel Cells (Auto) 0-2 /hpf (0-2) 02/02/24 06:28 Urine Bacteria (Auto) None Seen (None Seen) 02/02/24 06:28 Adenovirus (PCR) Not Detected (NotDetected) 02/02/24 03:55 B. pertussis DNA (PCR) Not Detected (NotDetected) 02/02/24 03:55 B.parapertussis DNA PCR Not Detected (NotDetected) 02/02/24 03:55 C. pneumoniae DNA (PCR) Not Detected (NotDetected) 02/02/24 03:55 Coronavirus OC43 (PCR) Not Detected (NotDetected) 02/02/24 03:55 Coronavirus HKU1 (PCR) Not Detected (NotDetected) 02/02/24 03:55 Coronavirus 229E (PCR) Not Detected (NotDetected) 02/02/24 03:55 SARS-CoV-2 (PCR) Not Detected (NotDetected) 02/02/24 03:55 Coronavirus NL63 (PCR) Not Detected (NotDetected) 02/02/24 03:55 Human Metapneumovir PCR Not Detected (NotDetected) 02/02/24 03:55 Influenza Type A (PCR) Not Detected (NotDetected) 02/02/24 03:55 Influenza Type B (PCR) Not Detected (NotDetected) 02/02/24 03:55 M. pneumoniae (PCR) Not Detected (NotDetected) 02/02/24 03:55 Parainfluenza 1 (PCR) Not Detected (NotDetected) 02/02/24 03:55 Parainfluenza 2 (PCR) Not Detected (NotDetected) 02/02/24 03:55 Parainfluenza 3 (PCR) Not Detected (NotDetected) 02/02/24 03:55 Parainfluenza 4 (PCR) Not Detected (NotDetected) 02/02/24 03:55 RSV (PCR) Not Detected (NotDetected) 02/02/24 03:55 Entero/Rhino (PCR) Not Detected (NotDetected) 02/02/24 03:55 Impressions Chest X-Ray 02/02/24 03:53 XR chest 1V portable HISTORY: 58 years-old Female Sepsis COMPARISON: 02/10/2023 TECHNIQUE: AP view of the chest FINDINGS: Cardiomediastinal and hilar silhouettes are within normal limits. The lungs are clear. No pneumothorax or pleural effusion. Bones appear grossly intact. IMPRESSION: No acute process. ACT 112: Negative or not required by law. The above report was generated using voice recognition software. It may contain grammatical, syntax or spelling errors. Electronically signed by: Mitch Vieira M.D. 02/02/2024 7:[address] 02/02/24 03:53 Exam(s): CT HEAD Without Contrast EXAM: CT Head Without Intravenous Contrast CLINICAL HISTORY: Reason for exam: severe BARCLAY on coumadin. TECHNIQUE: Axial computed tomography images of the head/brain without intravenous contrast. CTDI is 38.64 mGy and DLP is 624.41 mGy-cm. Automated exposure control was utilized for the study. A dose lowering technique was utilized adhering to the principles of ALARA. COMPARISON: Comparison made to prior brain MRI from October 03, 2015.. FINDINGS: Brain: Unremarkable. No hemorrhage. No significant white matter disease. No edema. Ventricles: Unremarkable. No ventriculomegaly. Bones/joints: Unremarkable. No acute fracture. Soft tissues: Unremarkable. Sinuses: Unremarkable as visualized. No acute sinusitis. Mastoid air cells: Unremarkable as visualized. No mastoid effusion. IMPRESSION: No evidence of acute intracranial pathology. Electronically signed by: Sravanthi Landry MD 02/02/24 05:12 AM ECG Additional Comments: ECG. Normal sinus rhythm rate 90. Moderate voltage criteria for LVH. No acute ST changes seen Code Status & VTE Plan VTE Prophylaxis Plan VTE Prophylaxis will be ordered: Yes
[2024-02-02 08:04] LABS: Appearance Urine Clear (Clear); Bacteria Urine Automated None Seen (None Seen); Bilirubin Urine Negative (Negative); Blood Urine Negative (Negative); Cast Urine Automated 0-2 /lpf (0-2); Color Urine Yellow; Epithelial Cell Urine Auto 0-2 /hpf (0-2); Glucose Urine UA Negative (Negative); Ketones Urine Negative (Negative); Leukocyte Esterase Urine 1+ (Negative); Nitrite Urine Negative (Negative); Protein Urine Negative (Negative); RBC Urine Automated 0-2 /hpf (0-2); Urobilinogen Urine Negative (Negative); WBC Urine Automated 0-5 /hpf (0-5)
[2024-02-02] MEDS ORDERED: ALBUTEROL HFA 8 GM INHALER INH PRN (08:56)
[2024-02-02] MEDS ORDERED: NITROGLYCERIN SL 0.4 MG/TAB TAB SL PRN (08:56)
[2024-02-02] MEDS ORDERED: POLYETHYLENE (MIRALAX) 17 GM PACK PO PRN (08:56)
[2024-02-02] MEDS: ACETAMINOPHEN 325 MG TAB PO PRN (10:06)
[2024-02-02] MEDS: SODIUM CHLORIDE 0.9% 1,000 ML IV SCH (10:11)
[2024-02-02] MEDS: LINACLOTIDE 145 MCG CAPSULE PO SCH (10:54)
[2024-02-02] MEDS: CITALOPRAM 20 MG TAB PO SCH (10:54)
[2024-02-02] MEDS: LEVOTHYROXINE SODIUM 50 MCG TABLET PO SCH (10:54)
--- NOTE | 2024-02-02 11:49 | Electrocardiogram Report ---
Test Reason : Blood Pressure : / mmHG Vent. Rate : 090 BPM Atrial Rate : 090 BPM P-R Int : 160 ms QRS Dur : 096 ms QT Int : 388 ms P-R-T Axes : 004 -26 -02 degrees QTc Int : 474 ms Normal sinus rhythm Moderate voltage criteria for LVH, may be normal variant ( R in aVL , [place] product ) Poor R wave progression, consider anterior [place] vs. lead placement vs. LVH Abnormal ECG When compared with ECG of 10-FEB-2023 14:37, Nonspecific T wave abnormality no longer evident in Anterior leads Confirmed by Jhon Mario ([id number]) on 02/02/2024 11:48:37 AM Referred By: REFERRED SELF Confirmed By:Jhon Mario
[2024-02-02] MEDS: HEPARIN SOD 5,000 UNIT/0.5 ML VIAL SQ SCH (14:53)
--- NOTE | 2024-02-02 15:30 | Communication Note ---
Date of Service: February 02, 2024 Patient reports feeling near baseline Endorsing headache, which is a chronic phenomenon Reports methylpred and albuterol as two new agents potentially contributing to symptoms no cough or wheeze on exam monitor overnight likely d/c in am
[2024-02-02] MEDS: CYCLOBENZAPRINE HCL 10 MG TAB PO PRN (16:51)
[2024-02-02] MEDS: WARFARIN SOD 3 MG TAB PO SCH (16:52)
[2024-02-02] MEDS: CYCLOBENZAPRINE HCL 5 MG TAB PO STA (16:54)
[2024-02-03 06:32] LABS: Basophils # (auto) 0.03 K/uL (0.00-0.20); Basophils % (auto) 0.5 %; Eosinophils # (auto) 0.12 K/uL (0.00-0.50); Eosinophils % (auto) 1.8 %; Hematocrit (blood only) 38.6 % (37.0-47.0); Hemoglobin 12.4 g/dl (12.0-16.0); Immature Granulocytes # (auto) 0.01 K/uL (0.01-0.20); Immature Granulocytes % (auto) 0.2 %; Lymphocytes # (auto) 2.57 K/uL (1.20-3.40); Lymphocytes % (auto) 38.8 %; Mean Corpuscular Hemoglobin 28.3 pg (25.0-34.0); Mean Corpuscular Hgb Conc 32.1 g/dL (32.0-36.0); Mean Corpuscular Volume 88.1 fL (80.0-100.0); Mean Platelet Volume 10.2 fL (9.4-12.4); Monocytes # (auto) 0.83 K/uL (0.11-0.59); Monocytes % (auto) 12.5 %; Neutrophils # (auto) 3.06 K/uL (1.40-6.50); Neutrophils % (auto) 46.2 %; Platelet Count 249 K/uL (130-400); RDW Coefficient of Variation 14.9 % (11.5-14.5); RDW Standard Deviation 48.6 fL (36.4-46.3); Red Blood Count 4.38 M/uL (4.20-5.40); White Blood Count 6.62 K/ul (4.8-10.8)
[2024-02-03 06:58] LABS: Prothrombin Time 20.4 Seconds (9.0-12.0)
[2024-02-03 07:03] LABS: Anion Gap 4 (3-11); BUN Creatinine Ratio 12.8 (10-20); Blood Urea Nitrogen 12 mg/dl (6-23); Calcium 8.6 mg/dl (8.6-10.3); Carbon Dioxide 31 mmol/L (21-32); Chloride 105 mmol/L (98-107); Est GFR (African American) 77.5 ml/min; Est GFR (Non-African American) 66.9 ml/min; Glucose 80 mg/dl (70-99(Fasting)); Magnesium 1.9 mg/dl (1.7-2.4); Phosphorus 2.9 mg/dl (2.5-4.9); Potassium 4.7 mmol/L (3.5-5.1); Sodium 140 mmol/L (136-145)
--- NOTE | 2024-02-03 12:00 | Discharge Summary ---
Discharge Summary Date of Service February 03, 2024 Principal Dx & Hospital Course #1 = Principal Diagnosis (1) Confusion: Plan Pt is a 58-year-old female with past medical history significant for hypothyroidism, hyperparathyroidism, unspecified asthma, history of DVT (last DVT more than 10 years ago as per ), history of gastroparesis, post gastric surgery syndrome, GERD, osteoarthritis, osteoporosis, migraine, polyneuropathy, seizure disorder (simple partial), depression, trisomy X syndrome who was brought in because of confusion. As per patient was prescribed prednisone a few days ago by her PCP for ongoing upper respiratory symptoms. She started taking prednisone the day prior to admission. After after that she developed nausea, vomiting and confusion. Initially she did not really know where she was. She cannot remember family members. But thinks her mental status is somewhat improved on admission. Patient knows her name. Knows that she is in the hospital. Knew her date of . But could not tell current dates. And kept on asking why she is in the hospital. Otherwise she is answering other questions appropriately. And obeying simple commands. Complaining of headache. No blurred vision. Some cough. Denies any chest pain or shortness of breath at this time. No nausea , no abdominal pain. Normal bowel and bladder movements. Hemodynamically stable. Patient is allergic to many medications. As per , patient has had an allergic reaction to the prednisone in the past but not sure what it was. Per epic prednisone caused rash and mood change. Acute Toxic Encephalopathy Presenting with confusion Most likely from steroid use UA unremarkable CT head unremarkable Respiratory bio fire negative Chest x-ray unremarkable Labs grossly unremarkable Pt currently back to baseline Close PCP followup after discharge Hypothyroidism TSH wnl On Synthroid, continue History of DVT Several years ago On warfarin INR therapeutic at 2.0 on discharge Close PCP and coumadin clinic followup Asthma Continue home inhalers Depression On citalopram, continue Notes For Next Care Provider Please ensure resolution of symptoms please add methylprednisone to pt's allergy list Medication Changes From Visit None- please add methylprednisone to pt's allergy list Admission HPI Per Admitting Provider 58-year-old female with past medical history significant for hypothyroidism, hyperparathyroidism, unspecified asthma, history of DVT last DVT more than 10 years ago as per , history of gastroparesis, post gastric surgery syndrome, GERD, osteoarthritis, osteoporosis, migraine, polyneuropathy, seizure disorder simple partial, depression, trisomy X syndrome who lives at home with her was brought in because of confusion. As per patient was prescribed prednisone few days ago by PCP for ongoing upper respiratory symptoms. She started taking prednisone yesterday. After after that she developed nausea vomiting and acting confused. Initially she does not really know where she was. She cannot remember family numbers. But thinks her mental status is somewhat improved now.Patient can tell her name. Knows that she is in the hospital. Could tell her date of . But could not tell current dates. And keep on asking why she is in the hospital. Otherwise she is answering other questions appropriately. And obeying simple commands. Complaining of headache. No blurred vision. Some cough. Denies any chest pain or shortness of breath at this time. No nausea , no abdominal pain. Normal bowel and bladder movements. Hemodynamically stable. Patient is allergic to many medications. per patient had has allergic reaction to the prednisone in the past but not sure what it was. Per epic prednisone caused rash and mood change. Past medical history. As mentioned above Past surgical history. Colonoscopy. Cystoscopy, EGD. EGD with trans endoscopic dilatation. EGD with biopsy. Endometrial cryoablation. Laparoscopic gastric Milka-en-Y bypass. Laparoscopic inguinal hernia repair. Ligation of oviducts. Right inguinal hernia repair. Laparoscopic cholecystectomy. Social history. . No smoking. Alcohol occasional. No drug use. Family history. Mother has arthritis. Depression. Eye problems. Heart disorder. Hypertension. Thyroid disorder. Father skin cancer. A-fib. Heart disorder. Sister had Pituitary tumor Admission Exam Per Admitting Provider General- Not n acute distress Head- atraumatic Eyes- PERRL, EOMI. ENT- oropharynx clear Neck- supple, no JVD. Lungs- clear to auscultation no wheezing or crackles. Heart- regular rate and rhythm; no murmur, no gallop. Abdomen- normal bowel sounds, soft, nontender, no distension Extremities- no pretibial edema, no erythema seen Neuro- alert, oriented x 2; PERRL, EOMI; no facial palsy; no dysarthria; motor 5/5 bilaterally; no pronator drift, co ordination of movements normal, sensations intact, position sense intact Skin- warm & dry Discharge Exam General: Alert, oriented. No acute distress Skin: No noted rashes or bruises Psych: Appropriate mood and affect Neuro: No gross deficits HEENT: NC/AT CV: RRR Resp: Breath sounds clear bilaterally, no increased effort of breathing. Abdomen: Soft Extremities: No edema in lower extremities bilaterally. Updated Medication List Medication Instructions Recorded Confirmed Type albuterol sulfate 90 mcg/actuation 2 inh inhalation Q6H PRN Shortness 02/02/24 02/02/24 History aerosol inhaler Of Breath Or Wheezing alendronate 70 mg tablet 70 mg PO WK 02/02/24 02/02/24 History citalopram 20 mg tablet 20 mg PO DAILY 02/02/24 02/02/24 History cyclobenzaprine 10 mg tablet 10 mg PO HS PRN back spasm 02/02/24 02/02/24 History levothyroxine 50 mcg tablet 50 mcg PO DAILY 02/02/24 02/02/24 History linaclotide 145 mcg capsule 145 mcg PO DAILY 02/02/24 02/02/24 History (Linzess) ondansetron 4 mg disintegrating 4 mg PO TID PRN Nausea And Vomiting 02/02/24 02/02/24 History tablet warfarin 1 mg tablet 1 mg PO UD 02/02/24 02/02/24 History Hospital Stay Data Consultations 02/02/24 04:50 ED Decision to Admit Stat Diagnostic Imagining Performed 02/02/24 03:53 CT head/brain wo con Stat Chest X-Ray 02/02/24 03:53 XR chest 1V portable HISTORY: 58 years-old Female Sepsis COMPARISON: 02/10/2023 TECHNIQUE: AP view of the chest FINDINGS: Cardiomediastinal and hilar silhouettes are within normal limits. The lungs are clear. No pneumothorax or pleural effusion. Bones appear grossly intact. IMPRESSION: No acute process. ACT 112: Negative or not required by law. The above report was generated using voice recognition software. It may contain grammatical, syntax or spelling errors. Electronically signed by: Mitch Vieira M.D. 02/02/2024 7:[address] 02/02/24 03:53 Exam(s): CT HEAD Without Contrast EXAM: CT Head Without Intravenous Contrast CLINICAL HISTORY: Reason for exam: severe BARCLAY on coumadin. TECHNIQUE: Axial computed tomography images of the head/brain without intravenous contrast. CTDI is 38.64 mGy and DLP is 624.41 mGy-cm. Automated exposure control was utilized for the study. A dose lowering technique was utilized adhering to the principles of ALARA. COMPARISON: Comparison made to prior brain MRI from October 03, 2015.. FINDINGS: Brain: Unremarkable. No hemorrhage. No significant white matter disease. No edema. Ventricles: Unremarkable. No ventriculomegaly. Bones/joints: Unremarkable. No acute fracture. Soft tissues: Unremarkable. Sinuses: Unremarkable as visualized. No acute sinusitis. Mastoid air cells: Unremarkable as visualized. No mastoid effusion. IMPRESSION: No evidence of acute intracranial pathology. Electronically signed by: Sravanthi Landry MD 02/02/24 05:12 AM Discharge Instructions Given to Patient (Per Discharging Provider) Carolee, You are being discharged home after you came in with confusion. We believe it was related to your use of methylprednisone. Please STOP taking this at home. Please keep close follow up with your primary care provider after discharge. Please do not hesitate to come back to the emergency room if your symptoms worsen or return. It was a pleasure taking care of you while you were here. Total Time Total Time Spent Total Time Spent (In Minutes): 75
== END 2024-02-03 14:51 | disposition home or self-care (01) | DRG 93 ==
LOC: ED 03:45 → 2N 06:05 → SUATTDRO 06:05 → 2N 07:47